=== PATIENT | male | born 1945 | race Caucasian/White ===

== ENCOUNTER 2016-04-17 08:00 | Outpatient (CLI) | payer MEDICARE, OTHER | END 2016-04-17 23:59 | disposition home or self-care (01) | DX: Z12.11 Encounter for screening for malignant neoplasm of colon (principal) ==

== ENCOUNTER 2016-04-18 13:45 | Outpatient (CLI) | payer MEDICARE, OTHER | END 2016-04-18 13:46 | disposition home or self-care (01) | DX: I48.91 Unspecified atrial fibrillation (principal) ==

== ENCOUNTER 2016-05-10 15:00 | Outpatient (CLI) | payer MEDICARE, OTHER | END 2016-05-10 15:01 | disposition home or self-care (01) | DX: I48.91 Unspecified atrial fibrillation (principal) ==

== ENCOUNTER 2016-05-17 15:19 | Outpatient (CLI) | payer MEDICARE, OTHER | END 2016-05-17 15:20 | disposition home or self-care (01) | DX: I48.91 Unspecified atrial fibrillation (principal) ==

== ENCOUNTER 2016-05-25 15:28 | Outpatient (CLI) | payer MEDICARE, OTHER | END 2016-05-25 15:29 | disposition home or self-care (01) | DX: I48.91 Unspecified atrial fibrillation (principal) ==

== ENCOUNTER 2016-06-06 13:37 | Outpatient (CLI) | payer MEDICARE, OTHER | END 2016-06-06 13:38 | disposition home or self-care (01) | DX: I48.91 Unspecified atrial fibrillation (principal) ==

== ENCOUNTER 2016-06-16 13:37 | Outpatient (CLI) | payer MEDICARE, OTHER | END 2016-06-16 13:38 | disposition home or self-care (01) | DX: I48.91 Unspecified atrial fibrillation (principal) ==

== ENCOUNTER 2016-06-27 14:19 | Outpatient (CLI) | payer MEDICARE, OTHER | END 2016-06-27 14:20 | disposition home or self-care (01) | DX: I48.91 Unspecified atrial fibrillation (principal) ==

== ENCOUNTER 2016-08-11 13:53 | Outpatient (CLI) | payer MEDICARE, OTHER | END 2016-08-11 13:54 | disposition home or self-care (01) | DX: I48.91 Unspecified atrial fibrillation (principal) ==

== ENCOUNTER 2016-09-08 13:19 | Outpatient (CLI) | payer MEDICARE, OTHER | END 2016-09-08 13:20 | disposition home or self-care (01) | LOC: LAB 13:19 | PROVIDERS: ATTEND Nurse Practitioner Family | DX: I48.91 Unspecified atrial fibrillation (principal) | CPT/HCPCS: 85610 ==

== ENCOUNTER 2016-09-25 10:22 | Outpatient (CLI) | payer MEDICARE, OTHER | END 2016-09-25 10:23 | disposition home or self-care (01) | LOC: LAB.F 10:22 | PROVIDERS: ATTEND Nurse Practitioner Family | DX: I48.91 Unspecified atrial fibrillation (principal) | CPT/HCPCS: 85610 ==

== ENCOUNTER 2016-10-02 07:54 | Outpatient (CLI) | payer MEDICARE, OTHER | END 2016-10-02 07:55 | disposition home or self-care (01) | LOC: LAB.F 07:54 | PROVIDERS: ATTEND Nurse Practitioner Family | DX: I48.91 Unspecified atrial fibrillation (principal) | CPT/HCPCS: 85610 ==

== ENCOUNTER 2016-10-11 10:06 | Outpatient (CLI) | payer MEDICARE, OTHER ==
[2016-10-11 18:00] LABS: BASOPHILS # (AUTO) 0.1 10^3/uL (0.0-0.1); BASOPHILS % (AUTO) 0.7 %; EOSINOPHILS # (AUTO) 0.3 10^3/uL (0.0-0.7); EOSINOPHILS % (AUTO) 3.8 %; HCT - HEMATOCRIT 44.5 % (42.0-52.0); HGB - HEMOGLOBIN 14.7 g/dL (14.0-18.0); LYMPHOCYTES # (AUTO) 1.8 10^3/uL (1.5-3.5); LYMPHOCYTES % (AUTO) 21.9 %; MEAN CORPUSCULAR HEMOGLOBIN 30.9 pg (27.0-31.0); MEAN CORPUSCULAR HGB CONC 32.9 g/dL (32.0-36.0); MEAN CORPUSCULAR VOLUME 93.9 fL (80.0-94.0); MEAN PLATELET VOLUME 8.3 fL (7.4-11.4); MONOCYTES % (AUTO) 12.3 %; NEUTROPHILS % (AUTO) 61.3 %; NUCLEATED RED BLOOD CELLS AUTO 0.2 /100WBC; RED BLOOD COUNT 4.74 10^6/uL (4.70-6.10); RED CELL DISTRIBUTION WIDTH 14.5 % (12.0-15.0); UNCORRECTED WHITE BLOOD COUNT 8.1 x10^3/uL; WHITE BLOOD COUNT 8.1 x10^3/uL (4.8-10.8)
== END 2016-10-11 10:07 | disposition home or self-care (01) ==
LOC: LAB.F 10:06
PROVIDERS: ATTEND Nurse Practitioner Family
DX: I48.91 Unspecified atrial fibrillation (principal); M1A.9XX0 Chronic gout, unspecified, without tophus (tophi)
CPT/HCPCS: 36415; 84550; 85025; 85610

== ENCOUNTER 2016-11-07 13:24 | Outpatient (CLI) | payer MEDICARE, OTHER | END 2016-11-07 13:25 | disposition home or self-care (01) | LOC: LAB.F 13:24 | PROVIDERS: ATTEND Nurse Practitioner Family | DX: I48.91 Unspecified atrial fibrillation (principal) | CPT/HCPCS: 85610 ==

== ENCOUNTER 2016-11-13 13:31 | Outpatient (CLI) | payer MEDICARE, OTHER ==
--- NOTE | 2016-11-14 11:39 | Ultrasound Report ---
BILATERAL LOWER EXTREMITY ARTERIAL DUPLEX: 11/13/2016 CLINICAL INDICATION: Leg pain on exertion. TECHNIQUE: Real-time sonographic vascular imaging was performed by the psychiatry physician through the lower extremities utilizing both color-flow and Doppler spectral analysis. Multiple credit and collections representative static images were saved for review. RIGHT SIDE SITE PSV WAVEFORM STEN LAMP WIRER 373 monophasic PSFA 70 monophasic MSFA 51 monophasic DSFA 60 monophasic PFA 52 monophasic POP 132 monophasic CRISTIAN --- monophasic POT ANNEALER 57 monophasic DPA 12 monophasic LEFT SIDE SITE PSV WAVEFORM STEN LAMP WIRER 28 monophasic PSFA 30 monophasic MSFA 37 monophasic DSFA 30 monophasic PFA 31 monophasic POP 34 monophasic CRISTIAN 14 monophasic POT ANNEALER 58 monophasic PER 25 monophasic DPA 12 monophasic TECHNIQUE: Real-time scanning was performed. FINDINGS: Right leg: Waveforms are diffusely monophasic. There is markedly elevated velocity in the right common femoral artery, compatible with hemodynamically significant stenosis. Additionally, there is elevated velocity in the right popliteal artery, likely representing a hemodynamically significant stenosis. Left leg: Waveforms are diffusely monophasic. There is no evidence of a focal velocity increase to suggest a hemodynamically significant stenosis. IMPRESSION: MONOPHASIC WAVEFORMS BILATERALLY, COMPATIBLE WITH IN-FLOW DISEASE. LIKELY HEMODYNAMICALLY SIGNIFICANT ARTERIAL STENOSES IN THE RIGHT COMMON FEMORAL ARTERY AND RIGHT POPLITEAL ARTERY. MTDD
--- NOTE | 2016-11-14 11:52 | Ultrasound Report ---
CAROTID DUPLEX: 11/13/2016 CLINICAL INDICATION: Stroke. COMPARISON: 10/06/2013 TECHNIQUE: Real-time sonographic vascular imaging was performed by the family resource specialist through the carotid arteries utilizing both color-flow and Doppler spectral analysis. Multiple clearance representative static images were saved for review. Vessel PSV cm/sec 2D Plaque Estimate % ICA/CCA PSV EDV cm/sec % Stenosis RCCA Prox 75 -- RCCA Dist 53 12 RECA 143 -- RT BULB 37 -- 0.69 12 ARTEMIO Prox --- -- --- -- ARTEMIO Mid 100 -- 1.8 29 ARTEMIO Dist 105 -- 1.9 28 RVA 37 RVA flow direction: Antegrade. Vessel PSV cm/sec 2D Plaque Estimate % ICA/CCA PSV EDV cm/sec % Stenosis LCCA Prox 51 -- LCCA Dist 41 10 LECA 156 -- LFT BULB 80 -- 1.9 12 LICA Prox --- -- --- -- LICA Mid 298 -- 1.26 97 LICA Dist 179 -- 4.36 35 LVA 126 LVA flow direction: Antegrade. Velocity criteria are extrapolated from diameter data as defined by the Society of Radiologists in Ultrasound Consensus Conference Radiology 2003; 229; 340-346. Degree of Stenosis % ICA PSV cm/sec Plaque Estimate % ICA/CCA RSV Ratio ICA EDV cm/sec Normal < 125 None < 2.0 < 40 <50 < 125 < 50 < 2.0 < 40 50-69 125 - 130 >/= 50 2.0 - 4.0 40 - 100 >/= 70 but less than near occlusion > 230 >/= 50 > 4.0 > 100 Near occlusion High, low, or undetectable Visible lumen Variable Variable Total occlusion Undetectable No detectable lumen Not applicable Not applicable FINDINGS RIGHT: There is densely calcified plaquing in the proximal right internal carotid artery, obscuring the lumen. There is no evidence of a focal hemodynamically significant stenosis in the visualized portions of the right internal carotid artery. LEFT: There is densely calcified plaquing in the proximal left internal carotid artery, obscuring the lumen. There is marked velocity and ratio elevation in the [id number] portion, compatible with a hemodynamically significant stenosis, greater than 70%, increased from previous. IMPRESSION: LIKELY HEMODYNAMICALLY SIGNIFICANT STENOSIS OF THE LEFT INTERNAL CAROTID ARTERY. DENSELY CALCIFIED PLAQUING BILATERALLY, OBSCURING PORTIONS OF THE LUMEN FROM VISUALIZATION. FURTHER EVALUATION WITH MRA OR CTA OF THE NECK WOULD BE RECOMMENDED FOR FURTHER EVALUATION. MTDD
== END 2016-11-13 13:32 | disposition home or self-care (01) ==
LOC: DI 13:31
PROVIDERS: ATTEND Specialist
DX: I21.3 ST elevation (STEMI) myocardial infarction of unspecified site (principal); I51.7 Cardiomegaly; I63.9 Cerebral infarction, unspecified; R53.83 Other fatigue; M79.606 Pain in leg, unspecified; I10 Essential (primary) hypertension; Z95.5 Presence of coronary angioplasty implant and graft
CPT/HCPCS: 93306; 93880; 93925

== ENCOUNTER 2016-11-20 12:40 | Outpatient (CLI) | payer MEDICARE, OTHER | END 2016-11-20 12:41 | disposition home or self-care (01) | LOC: LAB.F 12:40 | PROVIDERS: ATTEND Nurse Practitioner Family | DX: I48.91 Unspecified atrial fibrillation (principal) | CPT/HCPCS: 85610 ==

== ENCOUNTER 2016-11-30 10:49 | Outpatient (CLI) | payer MEDICARE, OTHER ==
[2016-11-30] MEDS ORDERED: DIPYRIDAMOLE 50 MG/10 ML VIAL IVP ONE (13:15)
--- NOTE | 2016-11-30 15:05 | CARDIAC PROCEDURE NOTE ---
DATE OF SERVICE: 11/30/2016 00:00:00 PRIMARY CARE PHYSICIAN: LEONA Palomares REHAB MANAGER: Uzma Sher MD PROCEDURE: Pharmacologic stress test. PROCEDURE SYMPTOMS: Extreme fatigue. CARDIAC RISK FACTORS: Include known CAD and IN, also age, hypertension and hyperlipidemia. PREVIOUS CARDIAC PROCEDURES: Coronary stenting with angiogram and prior MPS. Metoprolol held prior to test. CLINICAL HISTORY: A 70-year-old male with known coronary artery disease. INITIAL RESTING VITAL SIGNS: Blood pressure 142/62, heart rate 78, height 71 inches, weight 169 pound s, BMI 25.7. PROCEDURE AND FINDINGS: The patient's identity and date verified. Consent signed. Safety stop. Pharmacologic stress testing was performed with Persantine at 0.75 mg/kg or 42 mg over 4 minutes. Max imal blood pressure was 164/0 with a heart rate of 109 beats per minute. The blood pressure decreased to 104/56 from effects of the infusion. He had mild symptoms of headache. The resting ECG demonstrat ed atrial fibrillation rhythm. Maximum ST segment depression was less than 0.5 mm and upsloping. Ther e was no ectopy. FINAL IMPRESSION 1. Negative stress electrocardiogram for ischemia by electrocardiographic criteria. 2. Negative stress test clinically for angina. 3. Tolerated test well. 4. Await results of myocardial perfusion scan. JOB #: [id number] EXT JOB #:[id number]
[2016-11-30 16:47] VITALS: BP 142/62
--- NOTE | 2016-11-30 17:55 | Nuclear Medicine Report ---
EXAM: MYOCARDIAL PERFUSION STRESS AND REST EXAM DATE: 11/30/2016 04:52 PM. CLINICAL HISTORY: Coronary artery disease, atrial fibrillation. Evaluate for ischemia. COMPARISON: X-ray 03/02/2010. TECHNIQUE: Patient given 10.8 mCi technetium 99m sestamibi IV for the rest portion of the exam. Non-g ated cardiac SPECT scintigraphy performed with multiplanar reformats. Patient attempted a treadmill protocol, but did not achieve target heart rate. Patient given 42 mg Persantine IV for pharmacologic stress. After this, patient given 38.4 mCi techne tium 99m sestamibi IV. Cardiac gated SPECT scintigraphy performed with multiplanar reformats, wall mo tion analysis, and left ventricular ejection fraction estimation. FINDINGS: There is uniform perfusion activity in the left ventricular myocardium on stress and rest. No fixed o r reversible stress-related perfusion defects. Wall motion is uniform. Left ventricular ejection fraction estimated at 54%. IMPRESSION: 1. No scintigraphic evidence of inducible ischemia or infarct. 2. Left ventricular ejection fraction estimated at 54%. [facility] Referring Provider Line: [phone] SITE ID: [id number]
== END 2016-11-30 10:50 | disposition home or self-care (01) ==
LOC: DI 10:49
PROVIDERS: ATTEND Specialist
DX: I25.10 Atherosclerotic heart disease of native coronary artery without angina pectoris (principal); I48.91 Unspecified atrial fibrillation; I25.2 Old myocardial infarction; I10 Essential (primary) hypertension; E78.5 Hyperlipidemia, unspecified; R53.83 Other fatigue
CPT/HCPCS: 78452; 93017; A9500; J1245

== ENCOUNTER 2017-01-02 14:57 | Outpatient (CLI) | payer MEDICARE, OTHER | END 2017-01-02 14:58 | disposition home or self-care (01) | LOC: LAB.F 14:57 | PROVIDERS: ATTEND Nurse Practitioner Family | DX: I48.91 Unspecified atrial fibrillation (principal) | CPT/HCPCS: 85610 ==

== ENCOUNTER 2017-01-18 15:45 | Outpatient (CLI) | payer MEDICARE, OTHER | END 2017-01-18 15:46 | disposition home or self-care (01) | LOC: LAB.F 15:45 | PROVIDERS: ATTEND Nurse Practitioner Family | DX: I48.91 Unspecified atrial fibrillation (principal) | CPT/HCPCS: 85610 ==

== ENCOUNTER 2017-01-31 12:39 | Outpatient (CLI) | payer MEDICARE, OTHER | END 2017-01-31 12:40 | disposition home or self-care (01) | LOC: LAB.F 12:39 | PROVIDERS: ATTEND Nurse Practitioner Family | DX: I48.91 Unspecified atrial fibrillation (principal) | CPT/HCPCS: 85610 ==

== ENCOUNTER 2017-02-21 10:02 | Outpatient (CLI) | payer MEDICARE, OTHER | END 2017-02-21 10:03 | disposition home or self-care (01) | LOC: LAB.F 10:02 | PROVIDERS: ATTEND Nurse Practitioner Family | DX: I48.91 Unspecified atrial fibrillation (principal) | CPT/HCPCS: 85610 ==

== ENCOUNTER 2017-03-22 14:55 | Outpatient (CLI) | payer MEDICARE, OTHER | END 2017-03-22 14:56 | disposition home or self-care (01) | LOC: LAB.F 14:55 | PROVIDERS: ATTEND Nurse Practitioner Family | DX: I48.91 Unspecified atrial fibrillation (principal) | CPT/HCPCS: 85610 ==

== ENCOUNTER 2017-04-03 13:36 | Outpatient (CLI) | payer MEDICARE, OTHER ==
[2017-04-03 19:03] LABS: BASOPHILS % (AUTO) 0.4 %; EOSINOPHILS # (AUTO) 0.1 10^3/uL (0.0-0.7); EOSINOPHILS % (AUTO) 1.7 %; HCT - HEMATOCRIT 43.5 % (42.0-52.0); HGB - HEMOGLOBIN 14.2 g/dL (14.0-18.0); LYMPHOCYTES # (AUTO) 2.1 10^3/uL (1.5-3.5); LYMPHOCYTES % (AUTO) 24.2 %; MEAN CORPUSCULAR HEMOGLOBIN 30.6 pg (27.0-31.0); MEAN CORPUSCULAR HGB CONC 32.7 g/dL (32.0-36.0); MEAN CORPUSCULAR VOLUME 93.6 fL (80.0-94.0); MEAN PLATELET VOLUME 8.4 fL (7.4-11.4); MONOCYTES # (AUTO) 0.8 10^3/uL (0.0-1.0); MONOCYTES % (AUTO) 8.9 %; NEUTROPHILS # (AUTO) 5.7 10^3/uL (1.5-6.6); NEUTROPHILS % (AUTO) 64.8 %; RED BLOOD COUNT 4.65 10^6/uL (4.70-6.10); UNCORRECTED WHITE BLOOD COUNT 8.9 x10^3/uL; WHITE BLOOD COUNT 8.9 x10^3/uL (4.8-10.8)
[2017-04-03 19:14] LABS: ALBUMIN/GLOBULIN RATIO 1.3 (1.0-2.2); BILIRUBIN,TOTAL 1.3 mg/dL (0.2-1.0); BUN - BLOOD UREA NITROGEN 21 mg/dL (6-20); CALCIUM 9.3 mg/dL (8.5-10.3); CARBON DIOXIDE - CO2 26 mmol/L (21-32); CHLORIDE 100 mmol/L (101-111); CHOL/HDL RATIO 3.9 (<5.0); CHOLESTEROL 213 mg/dL; GFR - MDRD 73 (>89); GLUCOSE 86 mg/dL (70-100); HDL CHOLESTEROL 55 mg/dL; LDL/HDL RATIO 2.6 (<3.6); POTASSIUM 4.3 mmol/L (3.5-5.0); SODIUM 133 mmol/L (135-145); TOTAL PROTEIN 7.4 g/dL (6.7-8.2); TRIGLYCERIDES 64 mg/dL; URIC ACID 9.6 mg/dL (2.6-7.2); VLDL CHOLESTEROL 13 mg/dL
== END 2017-04-03 13:37 | disposition home or self-care (01) ==
LOC: LAB.F 13:36
PROVIDERS: ATTEND Nurse Practitioner Family
DX: I10 Essential (primary) hypertension (principal); E78.5 Hyperlipidemia, unspecified; M1A.9XX0 Chronic gout, unspecified, without tophus (tophi)
CPT/HCPCS: 36415; 80053; 80061; 84443; 84550; 85025

== ENCOUNTER 2017-05-08 14:29 | Outpatient (CLI) | payer MEDICARE, OTHER | END 2017-05-08 14:30 | disposition home or self-care (01) | LOC: LAB.F 14:29 | PROVIDERS: ATTEND Nurse Practitioner Family | DX: I48.91 Unspecified atrial fibrillation (principal) | CPT/HCPCS: 85610 ==

== ENCOUNTER 2017-05-14 08:00 | Outpatient (CLI) | payer MEDICARE, OTHER | END 2017-05-14 23:59 | disposition home or self-care (01) | LOC: LAB.R 08:00 | PROVIDERS: ATTEND Nurse Practitioner Family | DX: I48.91 Unspecified atrial fibrillation (principal) | CPT/HCPCS: 85610 ==

== ENCOUNTER 2017-05-23 14:40 | Outpatient (CLI) | payer MEDICARE, OTHER ==
--- NOTE | 2017-05-24 09:17 | XRAY Report ---
TWO VIEW CHEST: 05/23/2017 CLINICAL INDICATION: Cough. COMPARISON: 08/03/2014. FINDINGS: Frontal and lateral views of the chest demonstrate a normal cardiac silhouette. The lungs are clear. No effusion or pneumothorax is present. IMPRESSION: NORMAL CHEST. TD: 05/24/2017 09:14
== END 2017-05-23 14:41 | disposition home or self-care (01) ==
LOC: DI.S 14:40
PROVIDERS: ATTEND Nurse Practitioner Family
DX: R05 Cough (principal)
CPT/HCPCS: 71046

== ENCOUNTER 2017-05-25 13:30 | Outpatient (CLI) | payer MEDICARE, OTHER | END 2017-05-25 13:31 | disposition home or self-care (01) | LOC: LAB.F 13:30 | PROVIDERS: ATTEND Nurse Practitioner Family | DX: I48.91 Unspecified atrial fibrillation (principal) | CPT/HCPCS: 85610 ==

== ENCOUNTER 2017-05-28 09:41 | Outpatient (CLI) | payer MEDICARE, OTHER ==
[2017-05-28 18:27] LABS: BASOPHILS % (AUTO) 0.1 %; HGB - HEMOGLOBIN 14.7 g/dL (14.0-18.0); LYMPHOCYTES # (AUTO) 1.4 10^3/uL (1.5-3.5); LYMPHOCYTES % (AUTO) 25.6 %; MEAN CORPUSCULAR HEMOGLOBIN 29.9 pg (27.0-31.0); MEAN CORPUSCULAR HGB CONC 32.2 g/dL (32.0-36.0); MEAN CORPUSCULAR VOLUME 92.9 fL (80.0-94.0); MEAN PLATELET VOLUME 8.5 fL (7.4-11.4); MONOCYTES # (AUTO) 0.8 10^3/uL (0.0-1.0); MONOCYTES % (AUTO) 15.2 %; NEUTROPHILS # (AUTO) 3.3 10^3/uL (1.5-6.6); NEUTROPHILS % (AUTO) 59.1 %; PLT - PLATELET COUNT 318 10^3/uL (130-450); RED BLOOD COUNT 4.91 10^6/uL (4.70-6.10); WHITE BLOOD COUNT 5.5 x10^3/uL (4.8-10.8)
[2017-05-28 18:52] LABS: ALBUMIN 4.1 g/dL (3.2-5.5); ALBUMIN/GLOBULIN RATIO 1.2 (1.0-2.2); ALKALINE PHOSPHATASE 67 IU/L (42-121); ALT ALANINE AMINOTRANSFERASE 20 IU/L (10-60); AST ASPARTATE AMINOTRANSFERASE 26 IU/L (10-42); BILIRUBIN,TOTAL 1.4 mg/dL (0.2-1.0); BUN - BLOOD UREA NITROGEN 24 mg/dL (6-20); CALCIUM 9.4 mg/dL (8.5-10.3); CARBON DIOXIDE - CO2 27 mmol/L (21-32); CHLORIDE 101 mmol/L (101-111); CHOL/HDL RATIO 4.4 (<5.0); CHOLESTEROL 215 mg/dL; GFR - MDRD 73 (>89); GLUCOSE 89 mg/dL (70-100); HDL CHOLESTEROL 49 mg/dL; LDL CHOLESTEROL,CALCULATED 149 mg/dL; SODIUM 137 mmol/L (135-145); TOTAL PROTEIN 7.5 g/dL (6.7-8.2); VLDL CHOLESTEROL 17 mg/dL
== END 2017-05-28 09:42 | disposition home or self-care (01) ==
LOC: LAB.F 09:41
PROVIDERS: ATTEND Nurse Practitioner Family
DX: I10 Essential (primary) hypertension (principal); I25.10 Atherosclerotic heart disease of native coronary artery without angina pectoris; E78.5 Hyperlipidemia, unspecified; I48.91 Unspecified atrial fibrillation
CPT/HCPCS: 36415; 80053; 80061; 83721; 84443; 85025; 85610

== ENCOUNTER 2017-06-04 14:58 | Outpatient (CLI) | payer MEDICARE, OTHER ==
--- NOTE | 2017-06-05 11:14 | Ultrasound Report ---
EXAM: CAROTID DOPPLER ULTRASOUND EXAM DATE: 06/04/2017 04:18 PM. CLINICAL HISTORY: Left carotid bruit. COMPARISON: Carotid ultrasound 11/13/2016. TECHNIQUE: Real-time sonographic vascular imaging was performed by the animation artist through the [employer] arterial system with a linear transducer utilizing color-flow, Doppler flow and spectral analysis. Multiple communications representative static images were saved for review. FINDINGS: Grayscale evaluation of right carotid bulb is markedly limited due to dense shadowing plaqu e. Right carotid bulb cannot be assessed on grayscale images. Tortuous right ICA. Dense calcified plaque within distal left carotid bulb and proximal to mid ICA. Grayscale and color D oppler evaluation of proximal left ICA is limited by calcified plaque. Peak systolic velocity within the proximal to mid left ICA is 339 cm/s with end-diastolic velocity 105 cm/s. Right: RCCA Prox: PSV 76 cm/sec. RCCA Dist: PSV 61 cm/sec, EDV 13 cm/sec. RECA: PSV 201 cm/sec. R Bulb: No flow seen; calcified plaque. ARTEMIO Prox: PSV 135 cm/sec, EDV 43 cm/sec, ICA/CCA ratio 2.21. ARTEMIO Mid: PSV 81 cm/sec, EDV 20 cm/sec, ICA/CCA ratio 1.33. ARTEMIO Dist: PSV 56 cm/sec, EDV 21 cm/sec, ICA/CCA ratio 0.92. RVA: PSV 64 cm/sec. RVA flow direction: Antegrade. Left: LCCA Prox: PSV 92 cm/sec. LCCA Dist: PSV 65 cm/sec, EDV 12 cm/sec. LECA: PSV 162 cm/sec. L Bulb: PSV 92 cm/sec, EDV 30 cm/sec, ICA/CCA ratio 1.42. LICA Prox: PSV 339 cm/sec, EDV 105 cm/sec, ICA/CCA ratio 5.22. LICA Mid: PSV 99 cm/sec, EDV 32 cm/sec, ICA/CCA ratio 1.52. LICA Dist: PSV 39 cm/sec, EDV 15 cm/sec, ICA/CCA ratio 0.60. LVA: PSV 61 cm/sec. LVA flow direction: Antegrade. Other: None. IMPRESSION: 1. Patient likely has a greater than 70% hemodynamically significant proximal left internal carotid a rterial stenosis. Origin of left ICA is difficult to assess due to shadowing plaque. In addition, the right carotid bulb was completely obscured by densely calcified plaque with distal shadowing. Recomm end further evaluation with CTA or MRA. Vascular surgery consult is also suggested. Validated velocity measurements with angiographic measurements and velocity criteria are extrapolated from diameter data as defined by the Society of Radiologists in Ultrasound Consensus Conference Radi ology 2003; 229;340-346. [facility] Referring Provider Line: [phone] SITE ID: [id number]
== END 2017-06-04 14:59 | disposition home or self-care (01) ==
LOC: DI 14:58
PROVIDERS: ATTEND Nurse Practitioner Family
DX: I65.23 Occlusion and stenosis of bilateral carotid arteries (principal)
CPT/HCPCS: 93880

== ENCOUNTER 2017-06-07 11:54 | Outpatient (CLI) | payer MEDICARE, OTHER ==
[2017-06-07] MEDS ORDERED: IOPAMIDOL-300 100 ML VIAL ONE (12:06)
[2017-06-07] MEDS ORDERED: IOPAMIDOL-300 100 ML VIAL IVP ONE (12:21)
--- NOTE | 2017-06-08 10:31 | CT Report ---
EXAM: CT ANGIOGRAM NECK EXAM DATE: 06/07/2017 12:22 PM. CLINICAL HISTORY: Occlusion and stenosis of right carotid artery. COMPARISON: Carotid Doppler ultrasound 06/04/2017. TECHNIQUE: Routine axial helical imaging was performed from the skull base through the aortic arch. R econstructions: Routine multiplanar 3D MIP reconstructions. IV Contrast: 80 cc Isovue 300. Evaluation of arterial stenosis is based on a NASCET method of measurement. In accordance with CT protocol optimization, one or more of the following dose reduction techniques w ere utilized for this exam: automated exposure control, adjustment of mA and/or KV based on patient s ize, or use of iterative reconstructive technique. FINDINGS: Mild tortuosity and calcification of the partially visualized aortic arch is noted. Normal three-vessel branching is seen. Moderate intimal thickening and calcification is seen involvin g great vessels off the arch and bifurcation points. Right Carotid: The CCA is patent. Marked circumferential atherosclerotic calcification is seen at the CCA bifurcation and proximal ICA. The underlying lumen of the ICA is likely decreased to approximate ly 1 mm. This gives severe, approximately 80%, stenosis. Mild atherosclerotic intimal thickening is s een in the distal cervical ICA without significant stenosis. No dissection. Intimal thickening is seen at the origin of the ECA. Moderate, 50%, stenosis is seen at the origin of the ECA. The ECA is patent. Left Carotid: The CCA is patent. Marked atherosclerotic calcification is seen at the CCA bifurcation and proximal ICA. At the level of the carotid bulb the lumen is decreased to approximately 1 mm, givi ng severe, 80%, stenosis. Additionally, in the immediate postbulbar ICA intimal thickening is noted a long with calcification with continuation of severe, greater than 70%, stenosis. Mild atherosclerotic intimal thickening and calcification is seen in the distal cervical ICA without significant stenosis . The ECA is patent and unremarkable. Vertebrals: Right vertebral artery: Atherosclerotic intimal thickening and calcification is seen at the origin an d proximal V1 segment. Severe, greater than 70%, stenosis is present. The V2 and V3 segments are garcia nt. Left vertebral artery: Lobular atherosclerotic calcification is seen at the origin. There likely is s evere critical stenosis rather than occlusion as there is opacification of the vessel immediately adj acent to the calcification. Moderate intimal thickening and calcification is seen in the mid and dist al V1 segment. Severe, greater than 70%, stenosis is seen in this location. Intimal thickening and ca lcification extends into the proximal V2 segment with moderate, 50%, stenosis. Atherosclerotic intima l thickening and calcification is seen in the distal V2 segment at the C3 level with moderate, 50%, s tenosis. Intracranial Circulation: Marked vascular calcification and tortuosity is seen involving intracranial ICA. This limits evaluati on for stenosis. There likely is multilevel mild to moderate stenosis. The left ICA primarily terminates as the MCA. The left A1 segment is hypoplastic with stenosis at the origin. The left P-comm is not identified. Left HILDA is primarily supplied from the left A1 segment t hrough a patent A-comm. Posterior circulation: The basilar artery and bifurcation is patent and unremarkable. Right vertebral artery: Mild vascular calcification is seen at the junction of the V3 and V4 segment. Moderate, 60%, stenosis is seen in the proximal V4 segment. Vascular calcifications are seen in the mid V4 segment with moderate, 50%, stenosis. The distal V4 segment is patent. Left vertebral artery: Intimal thickening and calcification is seen at the junction of the V3 and V4 segment and in the mid V4 segment. No significant stenosis. Other: The bones, soft tissues, and lung apices are within normal limits. IMPRESSION: 1. Right carotid circulation: Marked calcification is seen at the CCA bifurcation. Severe, 80%, steno sis is seen in the proximal ICA. 2. Left carotid circulation: Marked calcification is seen at the CCA bifurcation. Severe, 80%, stenos is is seen in the proximal ICA. Distal to this, continuation of severe, greater than 70%, stenosis is seen in the postbulbar ICA. 3. Right vertebral artery: Severe stenosis is seen at the origin and proximal V1 segment. Moderate st enosis is seen in the proximal and mid V4 segment. 4. Left vertebral artery: Critical stenosis with large atherosclerotic plaque is seen at the origin. Severe stenosis is seen throughout the mid and distal V1 and proximal V2 segment. Moderate stenosis i s noted in the distal V2 segment. [facility] Referring Provider Line: [phone] SITE ID: [id number]
== END 2017-06-07 11:55 | disposition home or self-care (01) ==
LOC: DI 11:54
PROVIDERS: ATTEND Nurse Practitioner Family
DX: I65.23 Occlusion and stenosis of bilateral carotid arteries (principal); I65.03 Occlusion and stenosis of bilateral vertebral arteries
CPT/HCPCS: 70498; Q9967

== ENCOUNTER 2017-06-08 14:11 | Outpatient (CLI) | payer MEDICARE, OTHER | END 2017-06-08 14:12 | disposition home or self-care (01) | LOC: LAB.F 14:11 | PROVIDERS: ATTEND Nurse Practitioner Family | DX: I48.91 Unspecified atrial fibrillation (principal) | CPT/HCPCS: 85610 ==

== ENCOUNTER 2017-06-15 13:52 | Outpatient (CLI) | payer MEDICARE, OTHER | END 2017-06-15 13:53 | disposition home or self-care (01) | LOC: LAB.F 13:52 | PROVIDERS: ATTEND Nurse Practitioner Family | DX: I48.91 Unspecified atrial fibrillation (principal) | CPT/HCPCS: 85610 ==

== ENCOUNTER 2017-07-04 14:19 | Outpatient (CLI) | payer MEDICARE, OTHER | END 2017-07-04 14:20 | disposition home or self-care (01) | LOC: LAB.F 14:19 | PROVIDERS: ATTEND Nurse Practitioner Family | DX: I48.91 Unspecified atrial fibrillation (principal) | CPT/HCPCS: 85610 ==

== ENCOUNTER 2017-07-12 14:57 | Outpatient (CLI) | payer MEDICARE, OTHER | END 2017-07-12 14:58 | disposition home or self-care (01) | LOC: LAB.F 14:57 | PROVIDERS: ATTEND Nurse Practitioner Family | DX: I48.91 Unspecified atrial fibrillation (principal) | CPT/HCPCS: 85610 ==

== ENCOUNTER 2017-07-19 14:47 | Outpatient (CLI) | payer MEDICARE, OTHER | END 2017-07-19 14:48 | disposition home or self-care (01) | LOC: LAB.F 14:47 | PROVIDERS: ATTEND Nurse Practitioner Family | DX: I48.91 Unspecified atrial fibrillation (principal) | CPT/HCPCS: 85610 ==

== ENCOUNTER 2017-07-31 14:10 | Outpatient (CLI) | payer MEDICARE, OTHER | END 2017-07-31 14:11 | disposition home or self-care (01) | LOC: LAB.F 14:10 | PROVIDERS: ATTEND Nurse Practitioner Family | DX: I48.91 Unspecified atrial fibrillation (principal) | CPT/HCPCS: 85610 ==

== ENCOUNTER 2017-08-14 15:09 | Outpatient (CLI) | payer MEDICARE, OTHER | END 2017-08-14 15:10 | disposition home or self-care (01) | LOC: LAB.F 15:09 | PROVIDERS: ATTEND Nurse Practitioner Family | DX: I48.91 Unspecified atrial fibrillation (principal) | CPT/HCPCS: 85610 ==

== ENCOUNTER 2017-08-20 13:28 | Outpatient (CLI) | payer MEDICARE, OTHER | END 2017-08-20 13:29 | disposition home or self-care (01) | LOC: LAB.F 13:28 | PROVIDERS: ATTEND Nurse Practitioner Family | DX: I48.91 Unspecified atrial fibrillation (principal) | CPT/HCPCS: 85610 ==

== ENCOUNTER 2017-09-06 14:26 | Outpatient (CLI) | payer MEDICARE, OTHER | END 2017-09-06 14:27 | disposition home or self-care (01) | LOC: LAB.F 14:26 | PROVIDERS: ATTEND Nurse Practitioner Family | DX: I48.91 Unspecified atrial fibrillation (principal) | CPT/HCPCS: 85610 ==

== ENCOUNTER 2017-09-25 14:40 | Outpatient (CLI) | payer MEDICARE, OTHER | END 2017-09-25 14:41 | disposition home or self-care (01) | LOC: LAB.F 14:40 | PROVIDERS: ATTEND Nurse Practitioner Family | DX: I48.91 Unspecified atrial fibrillation (principal) | CPT/HCPCS: 85610 ==

== ENCOUNTER 2017-10-12 09:24 | Outpatient (CLI) | payer MEDICARE, OTHER | END 2017-10-12 09:25 | disposition home or self-care (01) | LOC: LAB.F 09:24 | PROVIDERS: ATTEND Nurse Practitioner Family | DX: I48.91 Unspecified atrial fibrillation (principal) | CPT/HCPCS: 85610 ==

== ENCOUNTER 2017-11-05 15:18 | Outpatient (CLI) | payer MEDICARE, OTHER | END 2017-11-05 15:19 | disposition home or self-care (01) | LOC: LAB.F 15:18 | PROVIDERS: ATTEND Nurse Practitioner Family | DX: I48.91 Unspecified atrial fibrillation (principal) | CPT/HCPCS: 85610 ==

== ENCOUNTER 2017-11-12 14:59 | Outpatient (CLI) | payer MEDICARE, OTHER | END 2017-11-12 15:00 | disposition home or self-care (01) | LOC: LAB.F 14:59 | PROVIDERS: ATTEND Nurse Practitioner Family | DX: I48.91 Unspecified atrial fibrillation (principal) | CPT/HCPCS: 85610 ==

== ENCOUNTER 2017-11-22 09:38 | Outpatient (CLI) | payer MEDICARE, OTHER ==
--- NOTE | 2017-11-22 13:19 | XRAY Report ---
Procedure Date: 11/22/2017 Accession Number: [id number] / [id number] Procedure: XRS - Ankle 3 View RT CPT Code: FULL RESULT: EXAM: RIGHT ANKLE RADIOGRAPHY EXAM DATE: 11/22/2017 09:55 AM. CLINICAL HISTORY: Osteoarthritis, ankle, right. COMPARISON: None. TECHNIQUE: 3 views. FINDINGS: ongoing remodeling of a healed distal tibial diaphyseal fracture with question of partial ossification of the tibiofibular syndesmosis. Vascular calcifications are noted. There are associated degenerative changes of the ankle joint. IMPRESSION: Healed distal tibial fracture with associated posttraumatic degenerative changes. [facility]
== END 2017-11-22 09:39 | disposition home or self-care (01) ==
LOC: DI.S 09:38
PROVIDERS: ATTEND Family Medicine
DX: M19.171 Post-traumatic osteoarthritis, right ankle and foot (principal)

== ENCOUNTER 2017-12-11 12:55 | Outpatient (CLI) | payer MEDICARE, OTHER | END 2017-12-11 12:56 | disposition home or self-care (01) | LOC: LAB.F 12:55 | PROVIDERS: ATTEND Nurse Practitioner Family | DX: I48.91 Unspecified atrial fibrillation (principal) | CPT/HCPCS: 85610 ==

== ENCOUNTER 2017-12-19 12:41 | Outpatient (CLI) | payer MEDICARE, OTHER | END 2017-12-19 12:42 | disposition home or self-care (01) | LOC: LAB.F 12:41 | PROVIDERS: ATTEND Nurse Practitioner Family | DX: I48.91 Unspecified atrial fibrillation (principal) | CPT/HCPCS: 85610 ==

== ENCOUNTER 2018-01-16 10:53 | Outpatient (CLI) | payer MEDICARE, OTHER | END 2018-01-16 10:54 | disposition home or self-care (01) | LOC: LAB.F 10:53 | PROVIDERS: ATTEND Nurse Practitioner Family | DX: I48.91 Unspecified atrial fibrillation (principal) | CPT/HCPCS: 85610 ==

== ENCOUNTER 2018-02-14 10:15 | Outpatient (CLI) | payer MEDICARE, OTHER ==
[2018-02-14 11:13] LABS: INR 1.2 (0.8-1.2); PT - PROTHROMBIN TIME 13.9 secs (9.9-12.6)
== END 2018-02-14 10:16 | disposition home or self-care (01) ==
LOC: LAB 10:15
PROVIDERS: ATTEND Nurse Practitioner Family
DX: I48.91 Unspecified atrial fibrillation (principal)
CPT/HCPCS: 36415; 85610

== ENCOUNTER 2018-02-21 11:43 | Outpatient (CLI) | payer MEDICARE, OTHER ==
[2018-02-21 12:23] LABS: INR 1.7 (0.8-1.2); PT - PROTHROMBIN TIME 18.9 secs (9.9-12.6)
== END 2018-02-21 11:44 | disposition home or self-care (01) ==
LOC: LAB 11:43
PROVIDERS: ATTEND Nurse Practitioner Family
DX: I48.91 Unspecified atrial fibrillation (principal)
CPT/HCPCS: 36415; 85610

== ENCOUNTER 2018-03-05 11:25 | Outpatient (CLI) | payer MEDICARE, OTHER | END 2018-03-05 11:26 | disposition home or self-care (01) | LOC: LAB 11:25 | PROVIDERS: ATTEND Nurse Practitioner Family | DX: I48.91 Unspecified atrial fibrillation (principal) | CPT/HCPCS: 85610 ==

== ENCOUNTER 2018-03-20 14:41 | Outpatient (CLI) | payer MEDICARE, OTHER | END 2018-03-20 14:42 | disposition home or self-care (01) | LOC: LAB 14:41 | PROVIDERS: ATTEND Nurse Practitioner Family | DX: I48.91 Unspecified atrial fibrillation (principal) | CPT/HCPCS: 85610 ==

== ENCOUNTER 2018-03-28 10:49 | Outpatient (CLI) | payer MEDICARE, OTHER | END 2018-03-28 10:50 | disposition home or self-care (01) | LOC: LAB 10:49 | PROVIDERS: ATTEND Nurse Practitioner Family | DX: I48.91 Unspecified atrial fibrillation (principal) | CPT/HCPCS: 85610 ==

== ENCOUNTER 2018-04-12 13:29 | Outpatient (CLI) | payer MEDICARE, OTHER | END 2018-04-12 13:30 | disposition home or self-care (01) | LOC: LAB 13:29 | PROVIDERS: ATTEND Nurse Practitioner Family | DX: I48.91 Unspecified atrial fibrillation (principal) | CPT/HCPCS: 85610 ==

== ENCOUNTER 2018-05-16 09:11 | Outpatient (CLI) | payer MEDICARE, OTHER | END 2018-05-16 09:12 | disposition home or self-care (01) | LOC: LAB 09:11 | PROVIDERS: ATTEND Nurse Practitioner Family | DX: I48.91 Unspecified atrial fibrillation (principal) | CPT/HCPCS: 85610 ==

== ENCOUNTER 2018-05-23 15:28 | Outpatient (CLI) | payer MEDICARE, OTHER | END 2018-05-23 15:29 | disposition home or self-care (01) | LOC: LAB 15:28 | PROVIDERS: ATTEND Nurse Practitioner Family | DX: I48.91 Unspecified atrial fibrillation (principal) | CPT/HCPCS: 85610 ==

== ENCOUNTER 2018-05-31 16:01 | Outpatient (CLI) | payer MEDICARE, OTHER | END 2018-05-31 16:02 | disposition home or self-care (01) | LOC: LAB 16:01 | PROVIDERS: ATTEND Nurse Practitioner Family | DX: I48.91 Unspecified atrial fibrillation (principal) | CPT/HCPCS: 85610 ==

== ENCOUNTER 2018-06-12 10:53 | Outpatient (CLI) | payer MEDICARE, OTHER | END 2018-06-12 10:54 | disposition home or self-care (01) | LOC: LAB 10:53 | PROVIDERS: ATTEND Nurse Practitioner Family | DX: I48.91 Unspecified atrial fibrillation (principal) | CPT/HCPCS: 85610 ==

== ENCOUNTER 2018-06-22 15:59 | Outpatient (CLI) | payer MEDICARE, OTHER | END 2018-06-22 16:00 | disposition home or self-care (01) | LOC: LAB 15:59 | PROVIDERS: ATTEND Nurse Practitioner Family | DX: I48.91 Unspecified atrial fibrillation (principal) | CPT/HCPCS: 85610 ==

== ENCOUNTER 2018-06-28 15:42 | Outpatient (CLI) | payer MEDICARE, OTHER ==
--- NOTE | 2018-06-30 19:45 | XRAY Report ---
Reason: CELLULITIS Procedure Date: 06/28/2018 Accession Number: [id number] / [id number] Procedure: XR - Toe(s) RT CPT Code: FULL RESULT: EXAM: RIGHT FOOT AND TOES RADIOGRAPHY. EXAM DATE: 06/28/2018 04:41 PM. CLINICAL HISTORY: Cellulitis. Right foot infection. Swelling. COMPARISON: TOE(S) RT 06/28/2018 4:17 PM. TECHNIQUE: 3 views each of the foot and toes. FINDINGS: Bones: Bones are osteopenic without gross periostitis or erosive changes. No fractures or bone lesions. Joints: Moderate to severe first metatarsophalangeal joint degenerative changes.Mild diffuse degenerative changes elsewhere throughout the foot. Moderate ankle degenerative changes are throughout the foot. No subluxations. Soft Tissues: Peripheral vascular disease. No foreign body or tracking soft tissue gas seen. IMPRESSION: 1. No definite plain film osteomyelitis seen in this osteopenic patient in the right foot/toes. 2. Moderate to severe first MTP joint degenerative changes. 3. No foreign body or tracking soft tissue gas seen. [facility]
--- NOTE | 2018-06-30 19:45 | XRAY Report ---
Reason: CELLULITIS Procedure Date: 06/28/2018 Accession Number: [id number] / [id number] Procedure: XR - Foot 3 View RT CPT Code: FULL RESULT: EXAM: RIGHT FOOT AND TOES RADIOGRAPHY. EXAM DATE: 06/28/2018 04:41 PM. CLINICAL HISTORY: Cellulitis. Right foot infection. Swelling. COMPARISON: TOE(S) RT 06/28/2018 4:17 PM. TECHNIQUE: 3 views each of the foot and toes. FINDINGS: Bones: Bones are osteopenic without gross periostitis or erosive changes. No fractures or bone lesions. Joints: Moderate to severe first metatarsophalangeal joint degenerative changes.Mild diffuse degenerative changes elsewhere throughout the foot. Moderate ankle degenerative changes are throughout the foot. No subluxations. Soft Tissues: Peripheral vascular disease. No foreign body or tracking soft tissue gas seen. IMPRESSION: 1. No definite plain film osteomyelitis seen in this osteopenic patient in the right foot/toes. 2. Moderate to severe first MTP joint degenerative changes. 3. No foreign body or tracking soft tissue gas seen. [facility]
== END 2018-06-28 15:43 | disposition home or self-care (01) ==
LOC: DI 15:42
PROVIDERS: ATTEND Nurse Practitioner Family
DX: L03.115 Cellulitis of right lower limb (principal); M19.071 Primary osteoarthritis, right ankle and foot
CPT/HCPCS: 73660

== ENCOUNTER 2018-07-02 13:25 | Outpatient (CLI) | payer MEDICARE, OTHER | END 2018-07-02 13:26 | disposition home or self-care (01) | LOC: LAB 13:25 | PROVIDERS: ATTEND Nurse Practitioner Family | DX: I48.91 Unspecified atrial fibrillation (principal) | CPT/HCPCS: 85610 ==

== ENCOUNTER 2018-07-08 12:34 | Outpatient (CLI) | payer MEDICARE, OTHER | END 2018-07-08 12:35 | disposition home or self-care (01) | LOC: LAB 12:34 | PROVIDERS: ATTEND Nurse Practitioner Family | DX: I48.91 Unspecified atrial fibrillation (principal) | CPT/HCPCS: 85610 ==

== ENCOUNTER 2018-07-18 12:33 | Outpatient (CLI) | payer MEDICARE, OTHER | END 2018-07-18 12:34 | disposition home or self-care (01) | LOC: LAB 12:33 | PROVIDERS: ATTEND Nurse Practitioner Family | DX: I48.91 Unspecified atrial fibrillation (principal) | CPT/HCPCS: 85610 ==

== ENCOUNTER 2018-07-22 14:14 | Outpatient (CLI) | payer MEDICARE, OTHER | END 2018-07-22 14:15 | disposition home or self-care (01) | LOC: LAB 14:14 | PROVIDERS: ATTEND Nurse Practitioner Family | DX: I48.91 Unspecified atrial fibrillation (principal) | CPT/HCPCS: 85610 ==

== ENCOUNTER 2018-07-24 13:26 | Outpatient (CLI) | payer MEDICARE, OTHER | END 2018-07-24 13:27 | disposition home or self-care (01) | LOC: LAB 13:26 | PROVIDERS: ATTEND Nurse Practitioner Family | DX: I48.91 Unspecified atrial fibrillation (principal) | CPT/HCPCS: 85610 ==

== ENCOUNTER 2018-07-29 16:07 | Outpatient (CLI) | payer MEDICARE, OTHER | END 2018-07-29 16:08 | disposition home or self-care (01) | LOC: LAB 16:07 | PROVIDERS: ATTEND Nurse Practitioner Family | DX: I48.91 Unspecified atrial fibrillation (principal) | CPT/HCPCS: 85610 ==

== ENCOUNTER 2018-08-02 14:58 | Outpatient (CLI) | payer MEDICARE, OTHER | END 2018-08-02 14:59 | disposition home or self-care (01) | LOC: LAB 14:58 | PROVIDERS: ATTEND Nurse Practitioner Family | DX: I48.91 Unspecified atrial fibrillation (principal) | CPT/HCPCS: 85610 ==

== ENCOUNTER 2018-08-09 13:50 | Outpatient (CLI) | payer MEDICARE, OTHER | END 2018-08-09 13:51 | disposition home or self-care (01) | LOC: LAB 13:50 | PROVIDERS: ATTEND Nurse Practitioner Family | DX: I48.91 Unspecified atrial fibrillation (principal) | CPT/HCPCS: 85610 ==

== ENCOUNTER 2018-08-13 14:00 | Outpatient (CLI) | payer MEDICARE, OTHER | END 2018-08-13 14:01 | disposition home or self-care (01) | LOC: LAB 14:00 | PROVIDERS: ATTEND Nurse Practitioner Family | DX: I48.91 Unspecified atrial fibrillation (principal) | CPT/HCPCS: 85610 ==

== ENCOUNTER 2018-08-20 08:00 | Outpatient (CLI) | payer MEDICARE, OTHER | END 2018-08-20 23:59 | disposition home or self-care (01) | LOC: LAB 08:00 | PROVIDERS: ATTEND Nurse Practitioner Family | DX: I48.91 Unspecified atrial fibrillation (principal) | CPT/HCPCS: 85610 ==

== ENCOUNTER 2018-09-05 15:27 | Outpatient (CLI) | payer MEDICARE, OTHER | END 2018-09-05 15:28 | disposition home or self-care (01) | LOC: LAB 15:27 | PROVIDERS: ATTEND Nurse Practitioner Family | DX: I48.91 Unspecified atrial fibrillation (principal) | CPT/HCPCS: 85610 ==

== ENCOUNTER 2018-09-16 15:11 | Emergency (ER) | payer MEDICARE, OTHER ==
[2018-09-16 15:17] VITALS: BP 129/100
--- NOTE | 2018-09-16 15:36 | ED Physician Documentation ---
History of Present Illness - Stated complaint Stated Complaint: PICC LINE REMOVAL-MAC PT - Chief complaint Chief Complaint: General - History obtained from History obtained from: Patient - History of Present Illness Timing: Other (He has a PICC line that was being used for antibiotics. He has not used it in a month and he would like it removed.) Review of Systems Constitutional: denies: Fever, Chills Ears: reports: Reviewed and negative Nose: reports: Reviewed and negative PD PAST MEDICAL HISTORY - Past Medical History Cardiovascular: CA, Atrial fibrillation Respiratory: Pneumonia Neuro: None Endocrine/Autoimmune: None GI: None : None HEENT: None Psych: None Musculoskeletal: None Derm: Psoriasis - Past Surgical History Past Surgical History: Yes Ortho: Other Cardiovascular: Coronary stent HEENT: Tracheostomy - Present Medications Home Medications: Ambulatory Orders Medication Instructions Recorded Confirmed Allopurinol 300 mg ORAL DAILY 10/28/13 07/26/18 Lisinopril 20 mg ORAL DAILY 10/28/13 07/26/18 Metoprolol Tartrate [Lopressor] 25 mg ORAL DAILY 10/28/13 07/26/18 Warfarin [Coumadin] 2.5 mg ORAL DAILY 10/28/13 07/26/18 Clopidogrel Bisulfate [Clopidogrel] 1 tab PO DAILY 07/31/18 07/31/18 Furosemide [Lasix] 1 tab PO BID 07/31/18 07/31/18 cefTRIAXone [Rocephin 2 gram] 1 infus.set IV DAILY 07/31/18 07/31/18 metroNIDAZOLE [Metronidazole] 500 mg PO TID 07/31/18 07/31/18 - Allergies Allergies/Adverse Reactions: Allergies Allergy/AdvReac Type Severity Reaction Status Date / Time Dauphdl-Ana-Yxw Reductase AdvReac Dizziness Verified 09/16/18 15:17 Inhibitor - Social History Does the pt smoke?: No Smoking Status: Former smoker Does the pt drink ETOH?: No Does the pt have substance abuse?: No - Immunizations Immunizations are current?: Yes PD ED PE NORMAL - Vitals Vital signs reviewed: Yes - General General: Alert and oriented X 3, No acute distress - Extremities Extremities: Other (There is a noninfected PICC line in the left deep brachial vein that was removed during examination without issue.) - Neuro Neuro: Alert and oriented X 3, Normal speech Results - Vitals Vitals: Vital Signs - 24 hr 09/16/18 15:14 Temperature 36.9 C Heart Rate 90 Respiratory 16 Rate Blood Pressure 129/100 H O2 Saturation 96 Oxygen O2 Source Room air Departure - Departure Disposition: 01 Home, Self Care Clinical Impression: PIC line (peripherally inserted central catheter) removal Condition: Good Record reviewed to determine appropriate education?: Yes Comments: Call your doctor to arrange a follow-up appointment, make the next available appointment. In the interim, return anytime if worse or if new symptoms develop. Your blood pressure was elevated today on check into the emergency department. This does not mean that you have hypertension, it is a common phenomenon to come to the emergency department and have elevated blood pressure. I recommend that you see your primary care physician within the week to have it rechecked when you are feeling better.
== END 2018-09-16 15:46 | disposition home or self-care (01) ==
LOC: ED 15:11
DX: Z45.2 Encounter for adjustment and management of vascular access device (principal); R03.0 Elevated blood-pressure reading, without diagnosis of hypertension; I48.0 Paroxysmal atrial fibrillation; Z79.01 Long term (current) use of anticoagulants; Z87.891 Personal history of nicotine dependence
CPT/HCPCS: 85610; 99282

== ENCOUNTER 2018-09-16 15:55 | Outpatient (CLI) | payer MEDICARE, OTHER | END 2018-09-16 23:59 | disposition home or self-care (01) | LOC: LAB 15:55 | PROVIDERS: ATTEND Family Medicine | DX: I48.0 Paroxysmal atrial fibrillation (principal) | CPT/HCPCS: 85610 ==

== ENCOUNTER 2018-09-24 14:50 | Outpatient (CLI) | payer MEDICARE, OTHER | END 2018-09-24 14:51 | disposition home or self-care (01) | LOC: LAB 14:50 | PROVIDERS: ATTEND Family Medicine | DX: Z79.01 Long term (current) use of anticoagulants (principal) | CPT/HCPCS: 85610 ==

== ENCOUNTER 2018-10-01 15:22 | Outpatient (CLI) | payer MEDICARE, OTHER | END 2018-10-01 15:23 | disposition home or self-care (01) | LOC: LAB 15:22 | PROVIDERS: ATTEND Family Medicine | DX: Z51.81 Encounter for therapeutic drug level monitoring (principal); Z79.01 Long term (current) use of anticoagulants | CPT/HCPCS: 85610 ==

== ENCOUNTER 2018-10-04 10:49 | Outpatient (CLI) | payer MEDICARE, OTHER | END 2018-10-04 10:50 | disposition home or self-care (01) | LOC: LAB 10:49 | PROVIDERS: ATTEND Family Medicine | DX: Z79.01 Long term (current) use of anticoagulants (principal) | CPT/HCPCS: 85610 ==

== ENCOUNTER 2018-10-14 15:03 | Outpatient (CLI) | payer MEDICARE, OTHER | END 2018-10-14 15:04 | disposition home or self-care (01) | LOC: LAB 15:03 | PROVIDERS: ATTEND Family Medicine | DX: Z79.01 Long term (current) use of anticoagulants (principal) | CPT/HCPCS: 85610 ==

== ENCOUNTER 2018-10-31 14:08 | Outpatient (CLI) | payer MEDICARE, OTHER | END 2018-10-31 14:09 | disposition home or self-care (01) | LOC: LAB 14:08 | PROVIDERS: ATTEND Family Medicine | DX: Z79.01 Long term (current) use of anticoagulants (principal) | CPT/HCPCS: 85610 ==

== ENCOUNTER 2018-12-06 15:06 | Outpatient (CLI) | payer MEDICARE, OTHER | END 2018-12-06 15:07 | disposition home or self-care (01) | LOC: LAB 15:06 | PROVIDERS: ATTEND Family Medicine | DX: Z79.01 Long term (current) use of anticoagulants (principal) | CPT/HCPCS: 85610 ==

== ENCOUNTER 2018-12-10 13:26 | Outpatient (CLI) | payer MEDICARE, OTHER | END 2018-12-10 13:27 | disposition home or self-care (01) | LOC: LAB 13:26 | PROVIDERS: ATTEND Family Medicine | DX: Z79.01 Long term (current) use of anticoagulants (principal) | CPT/HCPCS: 85610 ==

== ENCOUNTER 2019-01-07 11:51 | Outpatient (CLI) | payer MEDICARE, OTHER | END 2019-01-07 11:52 | disposition home or self-care (01) | LOC: LAB 11:51 | PROVIDERS: ATTEND Family Medicine | DX: Z79.01 Long term (current) use of anticoagulants (principal) | CPT/HCPCS: 85610 ==

== ENCOUNTER 2019-01-10 16:44 | Emergency (ER) | payer MEDICARE, OTHER ==
--- NOTE | 2019-01-10 17:11 | ED Physician Documentation ---
PD HPI LOWER EXT INJURY - Stated complaint Stated Complaint: R FOOT PX/DISCHARGE - Chief complaint Chief Complaint: Ext Problem - History obtained from History obtained from: Patient - History of Present Illness PD HPI LOW EXT INJURY LOCATION: Right (73-year-old gentleman with history of TIA, peripheral vascular disease, he has had multiple vascular interventions on his legs and most recently had some sort of vascular surgery done by Dr. Mckeon in [place] on 30 December. Over the last few days has developed increasing pain to the fifth toe on the right with some drainage over the last day or so. He denies fevers or chills.) Review of Systems Ten Systems: 10 systems reviewed and negative Constitutional: denies: Fever, Chills Throat: reports: Reviewed and negative Cardiac: reports: Reviewed and negative Respiratory: reports: Reviewed and negative GI: reports: Reviewed and negative PD PAST MEDICAL HISTORY - Past Medical History Past Medical History: Yes Cardiovascular: [place], Atrial fibrillation Respiratory: Pneumonia Neuro: None Endocrine/Autoimmune: None GI: None : None HEENT: None Psych: None Musculoskeletal: None Derm: Psoriasis - Past Surgical History Past Surgical History: Yes Ortho: Other Cardiovascular: Coronary stent HEENT: Tracheostomy - Present Medications Home Medications: Ambulatory Orders Medication Instructions Recorded Confirmed Allopurinol 300 mg ORAL DAILY 10/28/13 07/26/18 Lisinopril 20 mg ORAL DAILY 10/28/13 07/26/18 Metoprolol Tartrate [Lopressor] 25 mg ORAL DAILY 10/28/13 07/26/18 Warfarin [Coumadin] 2.5 mg ORAL DAILY 10/28/13 07/26/18 Clopidogrel Bisulfate [Clopidogrel] 1 tab PO DAILY 07/31/18 07/31/18 Furosemide [Lasix] 1 tab PO BID 07/31/18 07/31/18 cefTRIAXone [Rocephin 2 gram] 1 infus.set IV DAILY 07/31/18 07/31/18 metroNIDAZOLE [Metronidazole] 500 mg PO TID 07/31/18 07/31/18 - Allergies Allergies/Adverse Reactions: Allergies Allergy/AdvReac Type Severity Reaction Status Date / Time [id number]-[id number] Reductase AdvReac Dizziness Verified 01/10/19 16:52 Inhibitor - Social History Does the pt smoke?: No Smoking Status: Former smoker Does the pt drink ETOH?: No Does the pt have substance abuse?: No - Family History Family history: reports: Non contributory - Immunizations Immunizations are current?: Yes PD ED PE NORMAL - Vitals Vital signs reviewed: Yes - General General: Alert and oriented X 3, No acute distress - HEENT HEENT: PERRL, EOMI - Neck Neck: Supple, no meningeal sign, No bony TTP - Abdomen Abdomen: Normal bowel sounds, Soft, Non tender - Back Back: No CVA TTP, No spinal TTP - Derm Derm: Normal color, Warm and dry - Extremities Extremities: Other (The right foot is dusky, there is a shallow ulcer on the medial side of the pinky toe with some purulent drainage, tenderness of the pinky toe. No palpable pulses on exam, asked the nurse to Doppler them.) - Neuro Neuro: Alert and oriented X 3, Normal speech Results - Vitals Vitals: Vital Signs - 24 hr 01/10/19 16:52 Temperature 36.2 C L Heart Rate 91 Respiratory 16 Rate Blood Pressure 113/56 L O2 Saturation 98 Oxygen O2 Source Room air - Labs Labs: Laboratory Tests 01/10/19 01/10/19 01/10/19 17:20 17:20 17:20 WBC 9.3 RBC 3.94 L Hgb 11.6 L Hct 36.8 L MCV 93.4 MCH 29.4 MCHC 31.5 L RDW 14.6 Plt Count 316 MPV 8.8 Neut # (Auto) 6.5 Lymph # (Auto) 1.7 [place] # (Auto) 0.8 Eos # (Auto) 0.3 Baso # (Auto) 0.0 Absolute Nucleated RBC 0.00 Nucleated RBC % 0.0 ESR PT 24.5 H INR 2.3 H Sodium 139 Potassium 5.1 H Chloride 100 L Carbon Dioxide 25 Anion Gap 14.0 H BUN 17 Creatinine 1.0 Estimated GFR (MDRD) 73 L Glucose 93 Calcium 9.3 C-Reactive Protein 7.5 H 01/10/19 17:20 WBC RBC Hgb Hct MCV MCH MCHC RDW Plt Count MPV Neut # (Auto) Lymph # (Auto) [place] # (Auto) Eos # (Auto) Baso # (Auto) Absolute Nucleated RBC Nucleated RBC % ESR 65 H PT INR Sodium Potassium Chloride Carbon Dioxide Anion Gap BUN Creatinine Estimated GFR (MDRD) Glucose Calcium C-Reactive Protein - Rads (name of study) 3v R foot Radiology: EMP read contemporaneously (Absence of the fourth distal phalanx, postsurgical, soft tissue swelling) PD MEDICAL DECISION MAKING - ED course ED course: The nurse was unable to Doppler pulses in the right foot. I used the bedside ultrasound was not able to find any arterial flow in the DP or the PT, also looked in the popliteal fossa without findings of pulsatile flow. A call was placed to vascular surgery in [place] at 5:30 PM I spoke with JANINE Ordoñez, on-call for the vascular surgery service at [place] at approximately 5:45 PM. He knows this patient well. This was basically an expected outcome, they previously had recommended to the patient and amputation seeing no other option for vascular intervention which the patient had refused. I posed this to the patient and he agreed to transfer for potential amputation. Accepted by Dr Thomson, hospitalist At [facility] in transfer at 6:15 PM. [place] were completed. He is stable for transport to a higher level of care for vascular surgery intervention. He received cefepime and vancomycin. Departure - Departure Disposition: 02 Transfer Acute Care Hosp Clinical Impression: Ischemic foot Condition: Serious
[2019-01-10 17:29] LABS: BASOPHILS % (AUTO) 0.4 %; EOSINOPHILS # (AUTO) 0.3 10^3/uL (0.0-0.7); EOSINOPHILS % (AUTO) 2.7 %; HGB - HEMOGLOBIN 11.6 g/dL (14.0-18.0); LYMPHOCYTES # (AUTO) 1.7 10^3/uL (1.5-3.5); LYMPHOCYTES % (AUTO) 18.6 %; MEAN CORPUSCULAR HEMOGLOBIN 29.4 pg (27.0-31.0); MEAN CORPUSCULAR HGB CONC 31.5 g/dL (32.0-36.0); MEAN CORPUSCULAR VOLUME 93.4 fL (80.0-94.0); MEAN PLATELET VOLUME 8.8 fL (7.4-11.4); MONOCYTES # (AUTO) 0.8 10^3/uL (0.0-1.0); MONOCYTES % (AUTO) 8.2 %; NEUTROPHILS # (AUTO) 6.5 10^3/uL (1.5-6.6); NEUTROPHILS % (AUTO) 69.7 %; PLT - PLATELET COUNT 316 10^3/uL (130-450); RED BLOOD COUNT 3.94 10^6/uL (4.70-6.10); RED CELL DISTRIBUTION WIDTH 14.6 % (12.0-15.0); WHITE BLOOD COUNT 9.3 x10^3/uL (4.8-10.8)
[2019-01-10 17:35] LABS: INR 2.3 (0.8-1.2); PT - PROTHROMBIN TIME 24.5 secs (9.9-12.6)
[2019-01-10 17:49] LABS: CALCIUM 9.3 mg/dL (8.5-10.3); CRP - C-REACTIVE PROTEIN 7.5 mg/dL (0-1.0)
[2019-01-10] MEDS ORDERED: VANCOMYCIN INJ 2 GM in SODIUM CHLORIDE 0.9% 500 ML IV STA (17:50)
[2019-01-10] MEDS ORDERED: CEFEPIME 2 GM in SODIUM CHLORIDE 0.9% MINIBAG 100 ML IV STA (17:50)
--- NOTE | 2019-01-10 17:58 | XRAY Report ---
Reason: foot infection 5th toe Procedure Date: 01/10/2019 Accession Number: [id number] / [id number] Procedure: XR - Foot 3 View RT CPT Code: FULL RESULT: EXAM: RIGHT FOOT RADIOGRAPHY EXAM DATE: 01/10/2019 05:20 PM. CLINICAL HISTORY: Foot infection 5th toe. COMPARISON: Right foot radiograph from 06/28/2018. TECHNIQUE: 3 views. FINDINGS: Bones: There is severe osseous demineralization. There is absence of the fourth distal phalanx, the majority of the fourth middle phalanx, and distal aspect of the fourth proximal phalanx laterally. This finding is new since the prior examination of 06/28/2018. No other definite areas of osseous erosion are demonstrated. No acute fracture. Joints: No dislocation or subluxation. There is mild joint space narrowing at the tarsometatarsal joint with mild spurring. Mild joint space narrowing at the first metatarsophalangeal joint. Soft Tissues: There is diffuse soft tissue swelling in the right foot, which is new from the prior examination. The fourth toe appears truncated with smooth margins, suggesting absence of the middle and distal phalanges may be postsurgical in nature. Diffuse arterial calcifications are noted. IMPRESSION: 1. Absence of the fourth distal phalanx, majority of the fourth middle phalanx, and portion of the fourth proximal phalanx. The fourth toe appears truncated with smooth margins, suggesting this could be postsurgical in nature. Recommend correlation with any surgical history. If there is clinical suspicion for cellulitis in this region, osteomyelitis cannot be excluded. 2. No definite radiographic evidence for osteomyelitis elsewhere. 3. Diffuse soft tissue swelling in the right foot, new from the prior examination and potentially representing cellulitis given the clinical history. RADIA
[2019-01-10 19:07] VITALS: BP 176/67
== END 2019-01-10 19:25 | disposition short-term general hospital (02) ==
LOC: ED 16:44
DX: I99.8 Other disorder of circulatory system (principal); L97.518 Non-pressure chronic ulcer of other part of right foot with other specified severity; Z87.891 Personal history of nicotine dependence
CPT/HCPCS: 36415; 73630; 80048; 85025; 85610; 85651; 86140; 87070; 87077; 87181; 87205; 96365; 96375; 99284; 99285; J3370

== ENCOUNTER 2019-01-10 19:16 | Outpatient (CLI) | payer MEDICARE, OTHER | END 2019-01-10 19:17 | disposition short-term general hospital (02) | LOC: EMS 19:16 | PROVIDERS: ATTEND Surgery | DX: M79.89 Other specified soft tissue disorders (principal); I99.8 Other disorder of circulatory system | CPT/HCPCS: A0425; A0426 ==

== ENCOUNTER 2019-02-05 23:25 | Outpatient (CLI) | payer MEDICARE, OTHER ==
[2019-02-05 01:19] LABS: BASOPHILS % (AUTO) 0.4 %; EOSINOPHILS # (AUTO) 0.2 10^3/uL (0.0-0.7); EOSINOPHILS % (AUTO) 1.8 %; HGB - HEMOGLOBIN 10.7 g/dL (14.0-18.0); LYMPHOCYTES # (AUTO) 1.7 10^3/uL (1.5-3.5); LYMPHOCYTES % (AUTO) 18.4 %; MEAN CORPUSCULAR HEMOGLOBIN 29.7 pg (27.0-31.0); MEAN CORPUSCULAR HGB CONC 32.6 g/dL (32.0-36.0); MEAN CORPUSCULAR VOLUME 91.1 fL (80.0-94.0); MONOCYTES # (AUTO) 1.1 10^3/uL (0.0-1.0); MONOCYTES % (AUTO) 11.3 %; NEUTROPHILS # (AUTO) 6.1 10^3/uL (1.5-6.6); NEUTROPHILS % (AUTO) 65.3 %; PLT - PLATELET COUNT 360 10^3/uL (130-450); RED CELL DISTRIBUTION WIDTH 15.1 % (12.0-15.0); WHITE BLOOD COUNT 9.3 x10^3/uL (4.8-10.8)
[2019-02-05 01:21] LABS: BILIRUBIN,URINE NEGATIVE (NEGATIVE); GLUCOSE, URINE (UA) NEGATIVE (NEGATIVE); KETONES,URINE (UA) NEGATIVE (NEGATIVE); LEUKOCYTE ESTERASE, URINE NEGATIVE (NEGATIVE); NITRITE,URINE NEGATIVE (NEGATIVE); OCCULT BLOOD,URINE MODERATE (NEGATIVE); PH,URINE 6.5 PH (5.0-7.5); PROTEIN,URINE NEGATIVE (NEGATIVE); UROBILINOGEN,URINE 0.2 (NORMAL) E.U./dL (NORMAL)
[2019-02-05 01:24] LABS: CLARITY,URINE CLEAR (CLEAR)
[2019-02-05 01:30] LABS: BACTERIA,URINE Rare /HPF (None Seen); RBC,URINE 0-5 /HPF (0-5); SQUAMOUS EPITHELIAL CELL,UR FEW Squamous (<= Few)
[2019-02-05 01:43] LABS: ALBUMIN/GLOBULIN RATIO 0.8 (1.0-2.2); BILIRUBIN,TOTAL 0.8 mg/dL (0.2-1.0); CALCIUM 8.7 mg/dL (8.5-10.3); CREATININE 0.7 mg/dL (0.6-1.2); TOTAL PROTEIN 6.6 g/dL (6.7-8.2)
== END 2019-02-05 23:59 | disposition home or self-care (01) ==
LOC: LAB.R 23:25
DX: Z89.619 Acquired absence of unspecified leg above knee (principal); N39.0 Urinary tract infection, site not specified; D64.9 Anemia, unspecified
CPT/HCPCS: 80053; 81001; 81003; 85025; 87086

== ENCOUNTER 2019-02-24 15:16 | Outpatient (CLI) | payer MEDICARE, OTHER | END 2019-02-24 15:17 | disposition home or self-care (01) | LOC: LAB 15:16 | PROVIDERS: ATTEND Family Medicine | DX: Z79.01 Long term (current) use of anticoagulants (principal) | CPT/HCPCS: 85610 ==

== ENCOUNTER 2019-04-15 11:17 | Outpatient (CLI) | payer MEDICARE, OTHER ==
[2019-04-15 11:51] LABS: BASOPHILS % (AUTO) 0.6 %; EOSINOPHILS # (AUTO) 0.2 10^3/uL (0.0-0.7); EOSINOPHILS % (AUTO) 3.3 %; HGB - HEMOGLOBIN 12.1 g/dL (14.0-18.0); LYMPHOCYTES # (AUTO) 1.8 10^3/uL (1.5-3.5); LYMPHOCYTES % (AUTO) 25.8 %; MEAN CORPUSCULAR HGB CONC 32.1 g/dL (32.0-36.0); MEAN CORPUSCULAR VOLUME 90.4 fL (80.0-94.0); MEAN PLATELET VOLUME 8.2 fL (7.4-11.4); MONOCYTES # (AUTO) 0.7 10^3/uL (0.0-1.0); MONOCYTES % (AUTO) 9.4 %; NEUTROPHILS # (AUTO) 4.1 10^3/uL (1.5-6.6); NEUTROPHILS % (AUTO) 58.6 %; PLT - PLATELET COUNT 175 10^3/uL (130-450); RED BLOOD COUNT 4.17 10^6/uL (4.70-6.10); RED CELL DISTRIBUTION WIDTH 15.9 % (12.0-15.0)
[2019-04-15 12:06] LABS: ALBUMIN 3.9 g/dL (3.2-5.5); ALBUMIN/GLOBULIN RATIO 1.2 (1.0-2.2); BILIRUBIN,TOTAL 0.8 mg/dL (0.2-1.0); CALCIUM 9.2 mg/dL (8.5-10.3); CREATININE 0.7 mg/dL (0.6-1.2); TOTAL PROTEIN 7.1 g/dL (6.7-8.2)
[2019-04-15 12:08] LABS: INR 2.1 (0.8-1.2); PT - PROTHROMBIN TIME 22.7 secs (9.9-12.6)
== END 2019-04-15 11:18 | disposition home or self-care (01) ==
LOC: LAB 11:17
PROVIDERS: ATTEND Nurse Practitioner
DX: I48.91 Unspecified atrial fibrillation (principal); Z79.01 Long term (current) use of anticoagulants; E78.5 Hyperlipidemia, unspecified; I10 Essential (primary) hypertension; I25.10 Atherosclerotic heart disease of native coronary artery without angina pectoris
CPT/HCPCS: 36415; 80053; 85025; 85610

== ENCOUNTER 2019-04-20 12:36 | Outpatient (CLI) | payer MEDICARE, OTHER | END 2019-04-20 12:37 | disposition EMS.NT | LOC: EMS 12:36 | PROVIDERS: ATTEND Surgery | DX: Z03.89 Encounter for observation for other suspected diseases and conditions ruled out (principal) ==

== ENCOUNTER 2019-04-21 08:41 | Outpatient (CLI) | payer MEDICARE, OTHER | END 2019-04-21 08:42 | disposition critical access hospital (66) | LOC: EMS 08:41 | PROVIDERS: ATTEND Surgery | DX: R53.1 Weakness (principal); R52 Pain, unspecified | CPT/HCPCS: A0425; A0429 ==

== ENCOUNTER 2019-04-21 08:45 | Inpatient (IN) | payer MEDICARE, OTHER ==
[2019-04-21] MEDS ORDERED: SODIUM CHLORIDE 0.9% 1,000 ML IV STA (09:06)
--- NOTE | 2019-04-21 09:13 | ED Physician Documentation ---
History of Present Illness - Stated complaint Stated Complaint: WEAKNESS - Chief complaint Chief Complaint: General - History obtained from History obtained from: Patient, Family - History of Present Illness Timing: Today Pain level max: 0 Pain level now: 0 - Additonal information Additional information: 73-year-old male states he has been feeling weak for the past few days. Today he had more trouble than usual getting out of bed to his wheelchair. He states he has not been eating and drinking much lately because food does not taste good to him. No fevers. No vomiting. No diarrhea. Abdominal pain. No chest pain. No shortness of breath. Worse with movement and better with rest. Review of Systems Ten Systems: 10 systems reviewed and negative Constitutional: denies: Fever, Chills Nose: denies: Rhinorrhea / runny nose, Congestion GI: denies: Vomiting, Diarrhea Skin: denies: Rash Musculoskeletal: denies: Neck pain, Back pain Neurologic: denies: Headache PD PAST MEDICAL HISTORY - Past Medical History Cardiovascular: Hypertension, High cholesterol, Coronary artery disease, Peripheral Vascular Disease, [place], Atrial fibrillation Respiratory: Pneumonia Neuro: None Endocrine/Autoimmune: None GI: None : None HEENT: None Psych: None Musculoskeletal: None Derm: Psoriasis - Past Surgical History Past Surgical History: Yes Ortho: Other Cardiovascular: Coronary stent HEENT: Tracheostomy - Present Medications Home Medications: Ambulatory Orders Medication Instructions Recorded Confirmed Furosemide 20 mg PO DAILY 04/21/19 04/21/19 Lisinopril [Zestril] 10 mg PO DAILY 04/21/19 04/21/19 Metoprolol Succinate 12.5 mg PO BID 04/21/19 04/21/19 Warfarin [Coumadin] 2.5 mg PO DAILY 04/21/19 04/21/19 - Allergies Allergies/Adverse Reactions: Allergies Allergy/AdvReac Type Severity Reaction Status Date / Time Zhoaact-Phe-Dlz Reductase AdvReac Dizziness Verified 04/21/19 08:51 Inhibitor - Social History Does the pt smoke?: No Smoking Status: Former smoker Does the pt drink ETOH?: No Does the pt have substance abuse?: No - Immunizations Immunizations are current?: Yes PD ED PE NORMAL - Vitals Vital signs reviewed: Yes - General General: Alert and oriented X 3, No acute distress, Well developed/nourished - HEENT HEENT: PERRL, Other (Dry lips and tongue) - Neck Neck: Supple, no meningeal sign - Cardiac Cardiac: Strong equal pulses, Other (Irregularly irregular) - Respiratory Respiratory: No respiratory distress, Clear bilaterally - Abdomen Abdomen: Soft, Non tender, Non distended - Derm Derm: Warm and dry, No rash - Extremities Extremities: No edema, Other (Right lower extremity amputation.) - Neuro Neuro: Alert and oriented X 3 - Psych Psych: Normal mood, Normal affect Results - Vitals Vitals: Vital Signs - 24 hr 04/21/19 04/21/19 04/21/19 08:51 08:58 10:58 Temperature 37.1 C Heart Rate 120 H 108 H 115 H Respiratory 18 18 19 Rate Blood Pressure 158/76 H 144/73 H 125/68 O2 Saturation 93 100 100 Oxygen O2 Source Room air - EKG (time done) 0848 Rate: Rate (enter#) (105) Rhythm: Atrial fibrillation ( w/ RVR) [place]: Normal QRS: Normal Ischemia: Non specific changes - Labs Labs: Laboratory Tests 04/21/19 04/21/19 04/21/19 09:05 09:05 09:05 WBC 8.6 RBC 3.94 L Hgb 11.5 L Hct 33.9 L MCV 86.0 MCH 29.2 MCHC 33.9 RDW 15.4 H Plt Count 125 L MPV 8.8 Neut # (Auto) 6.3 Lymph # (Auto) 1.0 L [place] # (Auto) 1.1 H Eos # (Auto) 0.0 Baso # (Auto) 0.0 Absolute Nucleated RBC 0.00 Nucleated RBC % 0.0 PT 45.0 H INR 4.3 H Sodium 121 L Potassium 4.5 Chloride 85 L Carbon Dioxide 19 L Anion Gap 17.0 H BUN 32 H Creatinine 0.8 Estimated GFR (MDRD) 94 Glucose 100 Calcium 8.7 Total Bilirubin 2.0 H AST 68 H ALT 16 Alkaline Phosphatase 526 H Total Protein 6.5 L Albumin 3.4 Globulin 3.1 Albumin/Globulin Ratio 1.1 Lipase 21 L - Rads (name of study) CT abdomen pelvis Radiology: Prelim report reviewed, EMP read contemporaneously, See rad report (1. New extensive sclerotic changes throughout the bones suggesting widespread metastatic bone disease, possibly prostate in origin. Nonspecific shotty pelvic lymph nodes seen. 2. Small segmental infarct lower pole left kidney, possibly acute. 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 3. Minimal to mild bilateral pleural effusions and atelectasis. ) PD MEDICAL DECISION MAKING - ED course Complexity details: reviewed results, re-evaluated patient, considered differential, d/w patient, d/w family, d/w business operations consultant ED course: Patient with decreased appetite and decreased oral intake. Now feeling increasingly weak. Has significant hyponatremia from his baseline as well as hypochloremia. Given IV fluids. His liver function tests and alkaline phosphatase were elevated, they have been elevated in the past, more significantly today. CT scan was undertaken and shows likely metastatic disease to his bones from likely prostate cancer. Patient was informed of these results. We will admit the patient for further correction of his significant electrolyte abnormalities. Patient counseled regarding signs and symptoms for which I believe and urgent re-evaluation would be necessary. Patient with good understanding of and agreement to plan and is comfortable going home at this time This document was made in part using voice recognition software. While efforts are made to proofread this document, sound alike and grammatical errors may occur. Departure - Departure Disposition: 66 [facility] DC/Xfer Clinical Impression: Hyponatremia, Hypochloremia, Bony metastasis Condition: Stable Discharge Date/Time: 04/21/19 12:51
[2019-04-21 09:22] LABS: BASOPHILS % (AUTO) 0.2 %; EOSINOPHILS % (AUTO) 0.5 %; HGB - HEMOGLOBIN 11.5 g/dL (14.0-18.0); LYMPHOCYTES % (AUTO) 11.4 %; MEAN CORPUSCULAR HEMOGLOBIN 29.2 pg (27.0-31.0); MEAN CORPUSCULAR HGB CONC 33.9 g/dL (32.0-36.0); MEAN PLATELET VOLUME 8.8 fL (7.4-11.4); MONOCYTES # (AUTO) 1.1 10^3/uL (0.0-1.0); MONOCYTES % (AUTO) 12.8 %; NEUTROPHILS # (AUTO) 6.3 10^3/uL (1.5-6.6); NEUTROPHILS % (AUTO) 73.4 %; PLT - PLATELET COUNT 125 10^3/uL (130-450); RED BLOOD COUNT 3.94 10^6/uL (4.70-6.10); RED CELL DISTRIBUTION WIDTH 15.4 % (12.0-15.0); WHITE BLOOD COUNT 8.6 x10^3/uL (4.8-10.8)
[2019-04-21 09:34] LABS: ALBUMIN 3.4 g/dL (3.2-5.5); ALBUMIN/GLOBULIN RATIO 1.1 (1.0-2.2); CALCIUM 8.7 mg/dL (8.5-10.3); CREATININE 0.8 mg/dL (0.6-1.2); TOTAL PROTEIN 6.5 g/dL (6.7-8.2)
[2019-04-21 09:37] LABS: INR 4.3 (0.8-1.2)
[2019-04-21] MEDS ORDERED: SODIUM CHLORIDE 0.9% 1,000 ML IV ONE (09:45)
[2019-04-21] MEDS ORDERED: IOVERSOL 320 100 ML VIAL IVP ONE ×3 (10:22→13:12)
--- NOTE | 2019-04-21 11:27 | CT Report ---
Reason: weakness, elevated LFTs, thrombocytopenia Procedure Date: 04/21/2019 Accession Number: [id number] / [id number] Procedure: CT - Abdomen/Pelvis W CPT Code: Final Report FULL RESULT: EXAM: CT ABDOMEN AND PELVIS EXAM DATE: 04/21/2019 10:44 AM. CLINICAL HISTORY: Weakness. Elevated liver function tests. COMPARISONS: ABDOMEN W/O 10/31/2013 6:20 AM ABD/KIDNEYS W/WO 11/30/2014 5:01 PM NECK ANGIO 06/07/2017 12:14 PM. TECHNIQUE: Routine helical CT imaging was performed through the abdomen and pelvis. IV contrast: 100 mL Optiray 320. Enteric contrast: No. Reconstructions: Coronal and sagittal. In accordance with CT protocol optimization, one or more of the following dose reduction techniques were utilized for this exam: automated exposure control, adjustment of mA and/or KV based on patient size, or use of iterative reconstructive technique. FINDINGS: Lung Bases: Minimal to mild bilateral pleural effusions and atelectasis is seen, right side greater than left side. Extensive calcified coronary artery disease is present. Liver: Normal. No masses. Gallbladder/Bile Ducts: Unremarkable. Spleen: Focal parenchymal atrophy and hypodensity in the superior spleen is seen, probable old infarct/scarring. Pancreas: Normal. Adrenal Glands: Normal. Kidneys: Simple appearing cyst in the right kidney are seen measuring up to 7.1 cm in the upper pole. New small hypodensity in the lower pole left kidney suggesting infarct is seen (image 40/3). Peritoneal Cavity/Bowel: No free fluid, free air or adenopathy. No masses or acute inflammatory process. The appendix is well visualized and normal. Pelvic Organs: Prostate gland is normal in size. The bladder is unremarkable. A few scattered shotty bilateral pelvic lymph nodes are seen. Dominant left external iliac lymph node measures 1.4 x 1.2 cm (image 73/3). No free fluid. Vasculature: Extensive diffuse calcified atherosclerotic disease of the aorta and iliac vasculature is seen. No acute vascular pathology is identified. Bones: Extensive heterogeneous sclerotic changes are seen throughout the bones suggesting widespread metastatic disease. Finding is new compared with 10/31/2013. Other: None. IMPRESSION: 1. New extensive sclerotic changes throughout the bones suggesting widespread metastatic bone disease, possibly prostate in origin. Nonspecific shotty pelvic lymph nodes seen. 2. Small segmental infarct lower pole left kidney, possibly acute. 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 3. Minimal to mild bilateral pleural effusions and atelectasis. RADIA
[2019-04-21] MEDS ORDERED: ONDANSETRON ODT 4 MG TABLET TL PRN (12:00)
[2019-04-21 12:27] LABS: BILIRUBIN,URINE NEGATIVE (NEGATIVE); GLUCOSE, URINE (UA) NEGATIVE (NEGATIVE); KETONES,URINE (UA) 15 mg/dL (NEGATIVE); LEUKOCYTE ESTERASE, URINE NEGATIVE (NEGATIVE); NITRITE,URINE NEGATIVE (NEGATIVE); OCCULT BLOOD,URINE TRACE-INTA (NEGATIVE); PH,URINE 5.5 PH (5.0-7.5); PROTEIN,URINE 30 mg/dL (NEGATIVE); UROBILINOGEN,URINE 0.2 (NORMAL) E.U./dL (NORMAL)
[2019-04-21 12:28] LABS: CLARITY,URINE CLEAR (CLEAR)
[2019-04-21 12:51] LABS: AMORPHOUS SEDIMENT,UR Rare /LPF; BACTERIA,URINE None Seen /HPF (None Seen); RBC,URINE 0-5 /HPF (0-5); SQUAMOUS EPITHELIAL CELL,UR NONE SEEN (<= Few)
[2019-04-21] MEDS: SODIUM CHLORIDE 0.9% 1,000 ML IV SCH ×2 (13:50→23:58)
--- NOTE | 2019-04-21 16:03 | HISTORY & PHYSICAL EXAMINATION ---
Chief Complaint - Chief Complaint Chief Complaint: weakness and can't get up History of Present Illness - Admitted From Admitted From:: Home/ER - History Obtained From Records Reviewed: Joon History obtained from: Patient, tawnyamickie and Dr. Saha Exam Limitations: fatigue causes him to slow down to talk - History of Present Illness HPI Comment/Other: He is a 73-year-old man who is with a history of coronary artery disease after a stent in 2003, and peripheral vascular disease resulting in osteomyelitis of the toes, and eventual amputation by December 2018. He also has a history of atrial fibrillation with strokes in the right internal capsule, bilateral thalami, and left precentral gyrus area. It is unclear if his strokes were due to A. fib that was not anticoagulated or ischemic. Most of them were in the l eft middle cerebral artery distribution dating to 2013. He regards himself is healthy and independent. In spite of his medical problems he would get in his truck and drive wherever he wanted to drive up until this fall. The leg pain in the foot pain from peripheral vascular disease was very uncomfortable. He eventually ended up with the amputation in December and taken care of by Dr. Walters and has not at [facility]. He feels like he remains relatively independent. He spent time in a wheelchair, but could transfer from the wheelchair to the bed. Wheelchair to a truck. Or go to his kitchen and stand to cook food. About 2 months ago he started having nausea. Unsure what it was from. Food started tasting bad. 2 weeks ago food really developed a bad taste. It did matter if he ate or drank something it just tasted bad. 3 days ago he developed severe esophageal pain. It would hurt in his solar plexus as water or liquid would drop from his esophagus into his stomach. Over the course of this time he felt like he was getting weaker and weaker. A week ago he tried to stand and do dishes and almost did not make it back to his wheelchair. He denies fever, chills. Denies cough, wheezing. No urgency, frequency, or dysuria. There is no hematuria. No flank pain. He had no new neurologic symptoms. Overall just weakness, fatigue, bad appetite. This last Sunday and Sunday he was having a particularly bad time. As you tried to transfer from bed to the wheelchair he did not make it a few times. He would gently slide himself down to the floor and lay there for hours at a time until he got the energy to get up and get back in bed or get back in the wheelchair. He finally came in today because he could not get up anymore. He was evaluated by Dr. Jackson. Weight in September 2018 was 72.5 kg. Weight today is 69.5 kg. Temperature was 37 1, heart rate was 120, respirations were 18 and blood pressure 158/76. 93% saturated on room air. He was felt to be a well- developed well-nourished elderly gentleman with dry lips and tongue. No meningeal signs. An irregularly irregular heartbeat that was tachycardic. Negative lung exam. The right lower extremity amputation. His labs showed him to be mildly anemic at 11.5 g of hemoglobin. Platelets were low at 125. INR is 4.3. He takes Coumadin for A. fib. He is newly hyponatremic at 121. BUN is 32 and creatinine is 0.8. Total bili is 2, AST is 68. Alk phos is 526. He is now admitted for dehydration manifested is dry oral mucosa, tachycardia, electrolyte imbalance. He has a prolonged INR. What is also notable is a CT of the abdomen done due to the elevated liver functions test. He has extensive coronary artery calcification. The liver is without masses. Extensive heterogeneous sclerotic changes seen throughout the bones suggesting widespread metastatic disease. This is new from a October 31, 2013 film. Minimal to mild bilateral pleural effusion. History - Past Medical History Cardiovascular: reports: Hypertension, High cholesterol (Intolerant of statins because they gave him sore feet. He was also tried on Lopid once and it did not work.), Coronary artery disease (PTCA done in approximately 2009), Peripheral Vascular Disease (Bilateral lower extremities with right leg worse than left leg. Bypass and stenting done 07/2018 of right leg and subsequent osteo right 4th toe w amputation 08/2018. Subsequent BKA due to unsuccessful healing and redo unsuccessful angioplasty of right popliteal artery/right leg bypass graft December 2018 when he had dusky right foot in our ER and seen by Iain Bennett MD), [place], Atrial fibrillation (Found when he presented as a TIA in September 2013. MRI at that time showed multiple old strokes in the brain that were old. And then subacute changes. From that time on he was with rate control and anticoagulation. Echocardiogram at that time showed an ejection fraction of 55% with mild left atrial enlargement. He then had another echo in November 2016 and other than severe increase in left atrial size there were no changes. He still has an intact ejection fraction.) Respiratory: reports: Pneumonia (Treated as pneumonia when he presented with syncope and fevers and elevated white cell count in October 2013. In reading the discharge summary there was some doubt on the diagnosis of pneumonia.) Neuro: reports: CVA (Presented as slurred speech in September 2013. MRI at that time showed old strokes in the right internal capsule, bilateral thalamic left greater than right, then 2 weeks later new left pre-central gyrus changes on MRI. Overall MRI reads as left middle cerebral artery distribution strokes. He is not felt to have any residual.) Endocrine/Autoimmune: reports: None GI: reports: Colon polyps (A bout of loose stools resulted in a colonoscopy February 2013. 7 polyps and diverticulosis were found on that scope. Pathology showed tubular adenomas or hyperplastic changes.) : reports: None HEENT: reports: Chronic hearing loss Psych: reports: None Musculoskeletal: reports: Gout, Other (Crush injury of his right leg resulting in a compound fracture in 1972. He was on the job.Osteomyelitis of the right toes in August 2018. After extensive vascular study found to have severe peripheral vascular disease. Chronic nonhealing toe wounds. He had a procedure done in December 2018 at [facility]. It did not work and he presented to our emergency room with severe ischemia of the toes. Transferred to [place] where he underwent a BKA.) Derm: reports: Psoriasis MRSA Hx?: No Other Past Medical History: Eosinophilia on blood work in October 2013 when he was admitted for pneumonia - Past Surgical History Cardiovascular: reports: Coronary stent HEENT: reports: Tracheostomy - Family & Social History Family History Comment/Other: of complications of a stroke in her 80s. Dad of brain aneurysm at the age of 60. 2 brothers and a sister. One brother is incredibly active and still rollerblades all around [place]. One brother lives in [place]. Stop smoking and got plump. His sister is healthy and okay but living in a skilled nursing because of her . She lives there to keep him company. Of his 3 children's they are healthy Living arrangement: At home Living Situation: Alone Social History Notes: Lives in senior subsidized housing here at [facility] in [place]. Moved there in January after his amputation. Lives alone. from his second since 1989. Main support system is Lele Neff who is his power of director customer. He started smoking at the age of 9 and smoked 1-1/2 packs/day and sometimes up to 2 packs/day until the year 2009. He used to be a heavy drinker where he would admittedly drink a sixpack a day. Then with time he get down to 3 a day. Then 1 a day. Now he just does not have a taste for it at all and he has not had anything to drink in over a month and a half. His children live in [place]. He talks to him on the phone off and o n. The person is closest to in his life and he loves them fiercely is his little brother Chencho who lives in [place]. - Substance History Use: Uses substance without health or social issues: NONE Abuse: Recurrent use of substance despite neg consequences: NONE Dependence: Experiences withdrawal or developed tolerances: NONE - POLST Patient has POLST: No POLST Status: DNR (Not only does not want to be resuscitated he is adamant that he never wants to receive blood transfusions. He is not a Jehovah just has deep philosophical beliefs about getting someone else's blood.) Meds/Allgy - Home Medications Home Medications: Ambulatory Orders Medication Instructions Recorded Confirmed Furosemide 20 mg PO DAILY 04/21/19 04/21/19 Lisinopril [Zestril] 10 mg PO DAILY 04/21/19 04/21/19 Metoprolol Succinate 12.5 mg PO BID 04/21/19 04/21/19 Warfarin [Coumadin] 2.5 mg PO DAILY 04/21/19 04/21/19 - Allergies Allergies/Adverse Reactions: Allergies Allergy/AdvReac Type Severity Reaction Status Date / Time Toraxsl-Zpo-Pkk Reductase AdvReac Dizziness Verified 04/21/19 08:51 Inhibitor Review of Systems - Constitutional Constitutional: reports: Fatigue, Malaise, Weakness, Poor appetite, Weight loss. denies: Fever, Chills, Weight gain, Other - Eyes Eyes: reports: Blurred vision. denies: Pain, Irritation, Amaurosis, Spots in vision, Field loss, Vision loss, Dipolpia - Ears, Nose & Throat Ears, Nose & Throat: reports: Hearing loss. denies: Ear pain, Hearing aids, T innitus, Vertigo, Nasal pain, Nasal discharge, Postnasal drainage, Sore throat, Hoarseness - Cardiovascular Cariovascular: reports: Irregular heart rate, Palpitations, Lightheadedness, Exertional dyspnea, Decr. exercise tolerance. denies: Chest pain, Edema, Sy ncope - Respiratory Respiratory: reports: SOB with exertion. denies: Cough, Sputum production, Wheezing, Orthopnea, SOB at rest - Gastrointestinal Gastrointestinal: reports: Change in bowel habits (no poop for a few days but not eating so not worried), Nausea, Vomiting (off and on but not daily. Just once or twice for the last few weeks.), Reflux/heartburn, Poor appetite. denies: Abdominal pain, Abdominal distention, Constipation, Diarrhea, Coffee grounds emesis, Bloating - Genitourinary Genitourinary: denies: Dysuria, Frequency, Urgency, Hematuria, Incontinence, Flank pain - Musculoskeletal Musculoskeletal: reports: Muscle pain, Back pain, Muscle aches, Stiffness, Joint pain, Other (He says that his left hip and left leg are killing him. Laying on the floor this weekend when he was slide out of bed really cause an increase in pain. Just moving his left hip to flex it or extend it causes him to cry out in pain.) - Integumentary Integumentary: reports: Rash (Psoriasis). denies: Pruritis, Lesions - Neurological Neurological: reports: General weakness, Dizziness. denies: Focal weakness, Headache, Numbness, Memory problems, Pre-existing deficit - Psychiatric Psychiatric: denies: Depression, Anxiety, Suicidal - Endocrine Endocrine: reports: Polydypsia (Because he has been unable to get to water very much this weekend he is dying for water. At all he wants to do is drink water.). denies: Polyuria - Hematologic/Lymphatic Hematologic/Lymphatic: denies: Anemia, Bruising, Petechiae Prior Level of Functionality: He was an independent person who could jump in his truck and go over over he wanted to. He used to live in a room in a house of his best friend Lele Neff. Then he started getting ischemia of his right leg, then osteomyelitis of his right foot and he was spending a lot of time in a wheelchair starting in the summer 2018. By December 2018 he was always sedentary and sitting down and in a wheelchair because of that leg. Once he got the BKA he had a little bit more independence and was able to get up and about 10 January but then started getting bad again in February and needing a wheelchair. Up until the last 2 weeks he was making his own food, paying his own bills, dressing himself and feeding himself. Exam - Vital Signs Reviewed Vital Signs: Yes Vital Signs: Vital Signs x48h Temp Pulse Resp BP Pulse Ox 04/21/19 12:30 94 18 105/66 21 L 04/21/19 10:58 115 H 19 125/68 100 04/21/19 08:58 108 H 18 144/73 H 100 04/21/19 08:51 37.1 C 120 H 18 158/76 H 93 - Physical Exam General Appearance: positive: No acute distress, Moderate distress (Just trying to move himself, for example moving his leg to more comfortable position causes him to cry out in pain and grimace.), Other (Tired elderly white male who is so weak he cannot even bring himself to push the button to sit up, and he cannot lift his head above the pillow.) Eyes Bilateral: positive: PERRL, EOMI ENT: positive: Dry mucous membranes Neck: positive: No JVD, Lymphadenopathy (R) (shotty), Lymphadenopathy (L) (shotty), Carotid bruit (bilateral with normal carotid upstroke) Respiratory: positive: Chest non-tender, No respiratory distress. negative: Wheezes, Rales, Rhonchi Cardiovascular: positive: Irregularly irregular, Systolic murmur. negative: Gallop/S4, Friction rub Abdomen: positive: Non-tender, No organomegaly, Nml bowel sounds, No distention, Other. negative: Guarding, Rebound Skin: positive: Warm, Dry, Pallor Extremities: positive: No pedal edema, Other (right bka, painful limb movements of right hip and left hip when he tries to get comfortable. it takes his breath away and is fierce.) Neurologic/Psychiatric: positive: Oriented x3, CN's nml (2-12), Motor nml Conclusion/Plan - Problem List (1) Rhabdomyolysis Conclusion/Plan: This gentleman gives a story of getting progressively anorexic with poor p.o. intake starting 2 months ago and worsened over the last 2 weeks with esophageal pain this last 3 days. That resulted in generalized weakness, and inability to have the strength to transfer from bed to wheelchair. This then resulted in sliding to the floor for several hours both days this last weekend. He now has mild rhabdomyolysis on top of dehydration and weakness. He is already demonstrated that he does not have adequate p.o. intake at home. As such I do not think he should return to home at this time. Plan: Inpatient admission Hydrate until CPK normal Ensure 3 times daily since he is not really eating or drinking much food UGI for the pain Qualifiers: Rhabdomyolysis type: non-traumatic Qualified Code(s): M62.82 - Rhabdomyolysis (2) Dehydration Conclusion/Plan: On physical examination his oral mucosa is quite dry, he is weak. He is tachycardic to 120. Blood pressure is low at times. Even though he was 158 systolic in the emergency room with tachycardia, his blood pressure is 105 systolic on MedSurg. Plan: IV fluid hydration and food (3) Generalized muscle weakness Conclusion/Plan: Currently caused by his dehydration, anorexia. Plan: He really does not want to go to a nursing home facility. He was a [facility] after his BKA. Although he thinks the people there a very nice, it is too noisy, too many people, and not enough privacy. I explained to him that if he cannot demonstrate to us that he can get up out of bed, transfer to wheelchair, go to the bathroom by transferring to toilet, he cannot go home. (4) Hyponatremia Conclusion/Plan: Due to dehydration. Will hydrate with normal saline and recheck tomorrow morning's labs (5) Elevated liver function tests Conclusion/Plan: The elevation of his liver function studies were the reason he had a CT of the abdomen where we discovered the diffusely bony metastatic disease. The liver in and of itself, however, is normal. There are no masses. The gallbladder and bile ducts are unremarkable. Plan: Acute hepatitis panel (6) Supratherapeutic INR Conclusion/Plan: Due to his anorexia, poor p.o. intake. No other medications seem to be involved, for instance no antibiotics. Plan: Hold Coumadin. Let INR drift down on its own. Recheck coagulation studies daily. Resume Coumadin after that. (7) Atrial fibrillation with rapid ventricular response Conclusion/Plan: Heart rate response is most likely due to his volume depletion and dehydration. We will continue IV fluids and resume his beta-ger. Chads score is high. But this gentleman has already manifested symptoms of A. fib when he is not anticoagulated by his strokes in 2013. He will need to go back on Coumadin. (8) Bone metastases Conclusion/Plan: Unknown primary. This is a gentleman who does not have symptoms of prostatism. The CT scan does not show a large prostate. He had a colonoscopy that was negative in 2012. He is a smoker and would be at risk for lung cancer. But the pattern of distribution of this bony metastatic disease is not compatible with anything but prostate or possible multiple myeloma. Plan: Bone biopsy as an outpatient vs Node excision as seen on CT that is easily accessible. Dr. Ellis is willing to do the excisional biopsy but he first would recommend that radiolgy (Dr. Sullivan) try core biopsy first if he is on duty. Free PSA and total PSA Serum protein electrophoresis UGI to see if there is esophageal component. If there is EGD is in order. He asked some questions about prostate cancer. I told him that this is a preliminary answer in view of the fact that we do not have a final diagnosis. He is 73 years old, and prostate cancer can be hormonally manipulated to give him quality time with decent symptom control. He is happy with that because he says he will never undergo chemotherapy or radiation no matter the cancer. - Lab Results Lab results reviewed: Yes Fish Bones: 04/21/19 09:05 04/21/19 09:05 - Diagnostic Imaging Results Diagnostic Imaging Results: positive: Final report reviewed Diagnostic Imaging Results Comments: CT of abdomen and pelvis as reported in history of present illness. The only other addition is a small segmental infarct of the lower pole of the left kidney, possibly acute. Small old infarct and scarring of the spleen is seen and it is chronic. Nonspecific shotty pelvic lymph nodes. Prostate gland normal size. Dominant left external iliac lymph node measuring 1.4 x 1.2 cm. Core Measures - Anticipated LOS I expect patient to be DC'd or transferred within 96 hours.: Yes - DVT/VTE - Prophylaxis VTE/DVT Device ordered at admit?: Yes
[2019-04-21] MEDS: SODIUM CHLORIDE FLUSH 0.9% 10 ML SYRINGE IVP SCH ×2 (17:53→18:32)
[2019-04-21] MEDS ORDERED: GI COCKTAIL 120 ML BOTTLE PO PRN ×2 (18:07→18:13)
[2019-04-21] MEDS: ACETAMINOPHEN 325 MG TABLET PO PRN (18:10)
--- NOTE | 2019-04-21 18:10 | ADVANCE CARE PLANNING NOTE ---
Advance Care Planning - Planning Encounter Date: 04/21/19 Time: 15:00 Purpose: establish goals of care and code status in context of new metastatic disease Parties in Attendance: hsopitalist and patient, I did speak to his Hayley GRADY Decisional Capacity of the Patient: intact. he is alert, lives alone, and was taking care of himself until this illness. POA is Hayley Neff, not his children, - Diagnosis for Encounter (1) Bone metastases Summary: New diagnosis for him. He presents as failure to thrive with anorexia, nausea, weight loss, poor p.o. intake resulting in severe weakness there is been lying on the ground and falling this weekend. He is found to be dehydrated, mild rhabdomyolysis, supratherapeutic INR, severe pain in the hips and pelvis from laying on the floor. CT done for elevated liver enzymes finds him to have diffusely metastatic bony disease. - Encounter Subjective/Patient's Story: He was born in [place]. His first 2 wives there. 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 He works at a [employer]. That works stopped when he had a compound fracture of his right leg on the job in 1972. 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 And did all sorts of things. He had 3 children with his first . She was "a chaser" and was unfaithful. That was why he her. He is never told his children that he thinks that some of them may not be his children. He then his second and she was wonderful. "A peach". But she had 2 children from a previous marriage and those children did not like him. They drove a wedge in their marriage. He felt like he was not wanted and they had a mutual falling out. He still recalls are very fondly. He finally moved to [facility] in 1989 to join his brother Chencho. He fiercely loves his brother Chencho. He says they are very close. 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 He rented a room in her home for a long time. After he had his BKA, however, and he had to do rehab at [facility], he decided that it was "time" to move out from Lele's house and rented senior subsidized housing at [facility] here in [place]. He loves elk hunting. The last time he was able to do that was in 2009. He thinks he was just getting too old and too slow to keep on doing it. He also loves trout fishing. Loves nothing by other than going up to [place] where his brother Chencho has a cabin and property and he goes fishing. He loves getting his truck and just taking off for drive. He would go shopping, library, random stores just a window shop. He started losing mobility in the spring 2018 when he developed symptomatic ischemia of his right leg. That resulted in osteomyelitis of the toes and amputation of the fourth toe in August 2018. The records state that he was offered a BKA but he declined. Then over the summer his right leg pain started getting worse, and he had a frankly dusky foot with and agonizing the painful foot in December 2018. He was seen in our emergency room and transferred to [facility] for he underwent a BKA. After the BKA, he had rehab [facility]. Then by January was living in [facility]. Somewhere in February he started developing anorexia. He was nauseated, just did not want to eat very much. In the last 2 weeks the nausea was accompanied by occasional sporadic vomiting. He was vomiting up undigested food. For the last 3 days his lower chest hurts over the solar plexus. Swallowing water induces severe lower esophageal cramping before water gets into his stomach. He has been wanting to eat. All food taste pretty bad. Starting this last weekend he was so weak that he could not transfer from his wheelchair to the bed. Or the bed to a wheelchair. Sometimes he was slide to the floor lay on the floor for hours. Could not reach the kitchen to get water. He is now in our hospital with dehydration, mild rhabdomyolysis, and severe, severe generalized weakness where he cannot even lift his head off the bed. Unfortunately the CAT scan of his abdomen done for abnormal liver function studies shows him to have diffuse bony disease. He says that he is not willing to give up yet. He is willing to undergo treatment and therapy to keep him living longer. But that is only with the caveats that he would be in his own apartment. He does not know if he is willing to go live in a jail facility on a permanent basis. He says it is too loud, too many people, no privacy and it drives him crazy. He thought that the people there were sweet. They were nice. But he cannot stand all the people. He is highly dubious that if he were ever to require jail facility placement that he would be happy there. He would prefer to be in his own apartment, with hospice to if that were to happen. He also states that he does not want to have blood transfusions. He even told [facility] that when they did his amputation. He is not a Jehovah. He just re ad a book on blood transfusions, and it freaks him out to think that he would get somebody else's blood that was not compatible with his. I have explained to him that all blood is typed and crossed before donated. But he is adamant in stating that "people make mistakes" and he just does not want blood transfusions. But he is willing to have antibiotics, surgeries if needed, pressor agents in ICU, BiPAP in ICU, just no intubation, CPR, or chest compressions. Objective/Medical Story: He is a 73-year-old man who is with a history of coronary artery disease after a stent in 2003, and peripheral vascular disease resulting in osteomyelitis of the toes, and eventual amputation by December 2018. He also has a history of atrial fibrillation with strokes in the right internal capsule, bilateral thalami, and left precentral gyrus area. It is unclear if his strokes were due to A. fib that was not anticoagulated or ischemic. Most of them were in the left middle cerebral artery distribution dating to 2013. He regards himself is healthy and independent. In spite of his medical problems he would get in his truck and drive wherever he wanted to drive up until this fall. The leg pain in the foot pain from peripheral vascular disease was very uncomfortable. He eventually ended up with the amputation in December and taken care of by Dr. Walters and has not at [facility]. He feels like he remains relatively independent. He spent time in a wheelchair, but could transfer from the wheelchair to the bed. Wheelchair to a truck. Or go to his kitchen and stand to cook food. About 2 months ago he started having nausea. Unsure what it was from. Food started tasting bad. 2 weeks ago food really developed a bad taste. It did matter if he ate or drank something it just tasted bad. 3 days ago he developed severe esophageal pain. It would hurt in his solar plexus as water or liquid would drop from his esophagus into his stomach. Over the course of this time he felt like he was getting weaker and weaker. A week ago he tried to stand and do dishes and almost did not make it back to his wheelchair. He denies fever, chills. Denies cough, wheezing. No urgency, frequency, or dysuria. There is no hematuria. No flank pain. He had no new neurologic symptoms. Overall just weakness, fatigue, bad appetite. This last Sunday and Sunday he was having a particularly bad time. As you tried to transfer from bed to the wheelchair he did not make it a few times. He would gently slide himself down to the floor and lay there for hours at a time until he got the energy to get up and get back in bed or get back in the wheelchair. He finally came in today because he could not get up anymore. He was evaluated by Dr. Jackson. Weight in September 2018 was 72.5 kg. Weight today is 69.5 kg. Temperature was 37 1, heart rate was 120, respirations were 18 and blood pressure 158/76. 93% saturated on room air. He was felt to be a well- developed well-nourished elderly gentleman with dry lips and tongue. No meningeal signs. An irregularly irregular heartbeat that was tachycardic. Negative lung exam. The right lower extremity amputation. His labs showed him to be mildly anemic at 11.5 g of hemoglobin. Platelets were low at 125. INR is 4.3. He takes Coumadin for A. fib. He is newly hyponatremic at 121. BUN is 32 and creatinine is 0.8. Total bili is 2, AST is 68. Alk phos is 526. He is now admitted for dehydration manifested is dry oral mucosa, tachycardia, electrolyte imbalance. He has a prolonged INR. What is also notable is a CT of the abdomen done due to the elevated liver functions test. He has extensive coronary artery calcification. The liver is without masses. Extensive heterogeneous sclerotic changes seen throughout the bones suggesting widespread metastatic disease. This is new from a October 31, 2013 film. Minimal to mild bilateral pleural effusion. - Past Medical History Cardiovascular: + Hypertension, +High cholesterol (Intolerant of statins because they gave him sore feet. He was also tried on Lopid once and it did not work.), Coronary artery disease (PTCA done in approximately 2009), +Peripheral Vascular Disease (Bilateral lower extremities with right leg worse than left leg. Bypass and stenting done 07/2018 of right leg and subsequent osteo right 4th toe w amputation 08/2018. Subsequent BKA due to unsuccessful healing and redo unsuccessful angioplasty of right popliteal artery/right leg bypass graft December 2018 when he had dusky right foot in our ER and seen by Iain Bennett MD), SD, +Atrial fibrillation (Found when he presented as a TIA in September 2013. MRI at that time showed multiple old strokes in the brain that were old. And then subacute changes. From that time on he was with rate control and anticoagulation. Echocardiogram at that time showed an ejection fraction of 55% with mild left atrial enlargement. He then had another echo in November 2016 and other than severe increase in left atrial size there were no changes. He still has an intact ejection fraction.) Respiratory: Pneumonia (Treated as pneumonia when he presented with syncope and fevers and elevated white cell count in October 2013. In reading the discharge summary there was some doubt on the diagnosis of pneumonia.) Neuro: CVA-Presented as slurred speech in September 2013. MRI at that time showed old strokes in the right internal capsule, bilateral thalamic left greater than right, then 2 weeks later new left pre-central gyrus changes on MRI. Overall MRI reads as left middle cerebral artery distribution strokes. He is not felt to have any residual. GI: Colon polyps-A bout of loose stools resulted in a colonoscopy February 2013. 7 polyps and diverticulosis were found on that scope. Pathology showed tubular adenomas or hyperplastic changes. : None HEENT: Chronic hearing loss Musculoskeletal: +Gout, +Crush injury of his right leg resulting in a compound fracture in 1972. He was on the job. +Osteomyelitis of the right toes in July 2018. After extensive vascular study found to have severe peripheral vascular disease. Chronic nonhealing toe wounds.s/p toe amputation August 2018 after refusing BKA. Returned with pain dusky toes 12/2018 to our ER and transferred to [place] where he underwent a BKA. Derm: reports: Psoriasis MRSA Hx?: No Other Past Medical History: Eosinophilia on blood work in October 2013 when he was admitted for pneumonia Goals of Care: 1. To remain in his apartment for as long as possible. After discussion with Lele, his power of consulting manager, he will then make future plans if he has to. 2. Willing to undergo treatment of his metastatic disease as long as there is no radiation therapy. He will discuss certain chemotherapy, or hormonal manipulation with an oncologist. After discussing side effects, he may or may not do that. 3. Willing to undergo the work-up to find out where the source of his metastatic disease is from 4. DO NOT RESUSCITATE status Plan: 1. I have already spoken to his power of consulting manager on the phone and updated her. She states that she will call his children. He is not happy about that because they are going to "worry" and "driving him crazy". 2. POLST form 3. I have discussed the case with Dr. Deejay Ellis. He recommends a core biopsy of a left inguinal node first. If that cannot be done he is willing to consider doing an excisional biopsy of the left inguinal groin node to identify primary Code Status: Do Not Attempt Resuscitation Time spent on advance care plannin minutes
[2019-04-21] MEDS: PANTOPRAZOLE 40 MG VIAL IVP SCH (18:32)
[2019-04-21] MEDS: GI COCKTAIL 120 ML BOTTLE PO PRN (18:33)
--- NOTE | 2019-04-21 18:47 | PHARMACY PROGRESS NOTE ---
- Best Possible Medication History Admit Date and Time: 04/21/19 1200 Processed by: Nursing (brian Ramirez; secondary = pharmacy) Medication History completed: Yes Patient Interview: Completed Secondary Source(s): Prescription bottles, Insurance records As the person ultimately responsible for medication therapy, providers are able to order a medication from an existing home medication list in [facility] via the "Reconcile Routine" prior to Confirmation of that medication by web support engineer. Such practice is discouraged except when the physician, in their clinical judgment, deems that a medical need exists for a medication without regard to previous use.
[2019-04-21] MEDS ORDERED: PHYTONADIONE 10 MG/ML AMP PO ONE (19:10)
[2019-04-21] MEDS ORDERED: CHERRY SYRUP 10 ML UDC PO ONE (19:10)
--- NOTE | 2019-04-21 19:55 | XRAY Report ---
Reason: falls w severe bone pain Procedure Date: 04/21/2019 Accession Number: [id number] / [id number] Procedure: XR - Hip w/Pelvis 2-3V LT CPT Code: Final Report FULL RESULT: EXAM: PELVIS AND LEFT HIP RADIOGRAPHY EXAM DATE: 04/21/2019 07:31 PM. CLINICAL HISTORY: Fall, pain. COMPARISON: None. TECHNIQUE: Pelvis and left hip, each 1 view. FINDINGS: Bones: Extensive patchy sclerosis throughout visualized bony structures. No definite fracture or other bone lesion. Joints: Normal. No dislocation. The hip joint space is preserved. Soft Tissues: Nonspecific bowel gas pattern. Contrast material in urinary bladder from preceding CT scan. Vascular calcifications and stents. IMPRESSION: Extensive sclerotic bone metastases. No definite acute disease. RADIA
[2019-04-21] MEDS: oxyCODONE 5 MG TABLET PO PRN (21:06)
[2019-04-22 05:37] LABS: BASOPHILS % (AUTO) 0.2 %; EOSINOPHILS # (AUTO) 0.1 10^3/uL (0.0-0.7); HGB - HEMOGLOBIN 9.5 g/dL (14.0-18.0); LYMPHOCYTES # (AUTO) 0.9 10^3/uL (1.5-3.5); MEAN CORPUSCULAR HEMOGLOBIN 27.6 pg (27.0-31.0); MEAN CORPUSCULAR HGB CONC 32.3 g/dL (32.0-36.0); MEAN CORPUSCULAR VOLUME 85.5 fL (80.0-94.0); MEAN PLATELET VOLUME 8.8 fL (7.4-11.4); MONOCYTES # (AUTO) 0.8 10^3/uL (0.0-1.0); MONOCYTES % (AUTO) 12.5 %; NEUTROPHILS # (AUTO) 4.4 10^3/uL (1.5-6.6); NEUTROPHILS % (AUTO) 69.5 %; PLT - PLATELET COUNT 121 10^3/uL (130-450); RED BLOOD COUNT 3.44 10^6/uL (4.70-6.10); RED CELL DISTRIBUTION WIDTH 15.8 % (12.0-15.0); WHITE BLOOD COUNT 6.3 x10^3/uL (4.8-10.8)
[2019-04-22 05:39] LABS: INR 2.2 (0.8-1.2); PT - PROTHROMBIN TIME 23.7 secs (9.9-12.6)
[2019-04-22 05:48] LABS: CALCIUM 7.9 mg/dL (8.5-10.3); CREATININE 0.7 mg/dL (0.6-1.2)
[2019-04-22] MEDS: SODIUM CHLORIDE FLUSH 0.9% 10 ML SYRINGE IVP PRN (06:57)
[2019-04-22] MEDS: PANTOPRAZOLE 40 MG VIAL IVP SCH (06:57)
[2019-04-22 07:00] LABS: PSA FREE > 160.000 ng/mL (0.16-2.81); PSA TOTAL > 1210.000 ng/mL (0.000-2.000)
[2019-04-22] MEDS: SODIUM CHLORIDE FLUSH 0.9% 10 ML SYRINGE IVP SCH ×2 (08:07→18:29)
[2019-04-22] MEDS: DOCUSATE SODIUM 250 MG CAPSULE PO SCH (08:35)
[2019-04-22] MEDS: SENNA 8.6 MG TABLET PO SCH (08:35)
[2019-04-22] MEDS ORDERED: polyethylene glycoL 3350 17 GM PACKET PO SCH (09:00)
[2019-04-22] MEDS: SODIUM CHLORIDE 0.9% 1,000 ML IV SCH ×2 (10:03→20:54)
--- NOTE | 2019-04-22 16:05 | PROVIDER PROGRESS NOTE ---
Assessment/Plan - Problem List (1) Rhabdomyolysis Qualifiers: Rhabdomyolysis type: non-traumatic Qualified Code(s): M62.82 - Rhabdomyolysis Assessment/Plan: CK was 672, today down to 300. Continue with IV fluids. Follow daily total CK Explained to the patient and also his caregiver Lele this plan (2) Dehydration Assessment/Plan: He is clinically not dehydrated with moist oral mucosa. He is still not able to take adequate p.o. intake to remain rehydrated. Continue with IV fluids. Follow BMP daily (3) Hyponatremia Assessment/Plan: Sodium of 121 is improved to 123. Continue with IV saline hydration (4) Odynophagia Assessment/Plan: The patient could not undergo esophagram because of inability to stand and cooperate with positioning in DI, due to his BKA. I suspect he may have esophageal stricture with the description of how even fluids are hard to swallow. We will order the speech therapist to do swallowing eval with barium and fluoroscopy. Until then, will change diet to clear liquids. This entire plan was discussed with the patient and his DPOA Lele at bedside (5) Bony metastasis Assessment/Plan: General evaluation has shown he has a very elevated PSA, prostate may be the primary. There was a lymph node that was possibly able to be biopsied however our radiologist, Dr. jose g sebastian, looked at these images and said it was not biopsy able. Patient will need [facility] Oncology eval and management when he is ready for discharge (6) Elevated PSA Assessment/Plan: As above, prostate may be the primary site of malignancy (7) Anemia Assessment/Plan: Probably from hemodilution but will check B12, folate levels and replace if low (8) Generalized muscle weakness Assessment/Plan: Will start PT for arm strengthening since his goal is transitioning from bed to chair, no walking since the R BKA (9) PVD (peripheral vascular disease) Assessment/Plan: His right leg ischemia led to osteomyelitis which eventually resulted in right BKA done in December 2018 (10) Hx of coronary artery disease Assessment/Plan: Continue with beta-ger, aspirin. He is unable to tolerate statin or Lopid. (11) Hx of right BKA Assessment/Plan: As above (12) History of CVA (cerebrovascular accident) Assessment/Plan: He has had multiple lacunar infarcts. There is probably no residual muscle weakness (13) Hx of atrial fibrillation, no current medication Assessment/Plan: Patient was on Coumadin, this was is on hold because of high INR. Will resume when it is in therapeutic range. This admission telemetry shows that he is in normal sinus rhythm however - Current Meds Current Meds: Current Medications Generic Name Dose Route Start Last Admin Trade Name Freq PRN Reason Stop Dose Admin Acetaminophen 650 mg 04/21/19 12:00 04/21/19 18:10 Tylenol PO 650 mg Q4HR PRN Administration Pain 1 to 4 Docusate Sodium 250 - 500 mg 04/22/19 09:00 04/22/19 08:35 Colace 250mg Capsule PO Not Given DAILY CHARLENE Sodium Chloride 1,000 mls @ 100 mls/hr 04/21/19 12:00 04/22/19 10:03 Normal Saline 0.9% IV 100 mls/hr .Q10H CHARLENE Administration Multi-Ingredient Mouthwash/Gargle 30 ml 04/21/19 18:14 04/21/19 18:33 PO 30 ml Q8H PRN Administration INDIGESTION Oxycodone HCl 5 mg 04/21/19 12:00 04/21/19 21:06 Roxicodone PO 5 mg Q4HR PRN Administration Pain 5 to 7 Pantoprazole Sodium 40 mg 04/21/19 19:00 04/22/19 06:57 Protonix IVP 40 mg QDAC CHARLENE Administration Senna 8.6 - 17.2 mg 04/22/19 09:00 04/22/19 08:35 Senokot PO Not Given DAILY CHARLENE Sodium Chloride 10 ml 04/21/19 12:00 04/22/19 06:57 Normal Saline Flush 0.9% IVP 10 ml PRN PRN Administration NEEDED PER PROVIDER ORDERS Sodium Chloride 10 ml 04/21/19 17:00 04/22/19 08:07 Normal Saline Flush 0.9% IVP Not Given 0100,0900,1700 CHARLENE - Lab Result Fish Bone Diagrams: 04/22/19 05:00 04/22/19 05:00 - Additional Planning My Orders: My Active Orders 04/22/19 12:27 Cine Barium Swallow [Modified Barium Swallow W/SP] [FL] Routine 04/22/19 Lunch DIET [Clear Liquid Diet] [DIET] 04/23/19 09:00 Metoprolol Succinate [Toprol Xl] 25 mg PO DAILY Subjective - Subjective Patient Reports: Feeling Better, Other (Still painful in throat, neck and upper chest to swallow, even liquids) Objective Vital Signs: Vital Signs - 24 hr 04/21/19 04/22/19 23:50 08:00 Temperature 36.6 C 36.4 C L Heart Rate [ 89 92 Brachial] Respiratory 18 18 Rate Blood Pressure 126/56 L 121/65 [Left Brachial artery] O2 Saturation 99 96 Oxygen O2 Source Room air I&O (Last 24 Hrs): Intake and Output Totals x24h 04/20/19 04/21/19 04/22/19 23:59 23:59 23:59 Intake Total 3590 1100 Output Total 950 550 Balance 2640 550 General: Alert, Oriented x3 HEENT: Mucous membr. moist/pink Neck: Supple, No JVD Neuro: Alert, Non Focal Cardiovascular: Regular rate Respiratory: No respiratory distress, Other (Increased AP diameter) Abdomen: Normal bowel sounds, Soft Extremities: No edema, Other (R BKA) - Results Results: Laboratory Results WBC 6.3 x10^3/uL (4.8-10.8) 04/22/19 05:00 RBC 3.44 10^6/uL (4.70-6.10) L 04/22/19 05:00 Hgb 9.5 g/dL (14.0-18.0) L 04/22/19 05:00 Hct 29.4 % (42.0-52.0) L 04/22/19 05:00 MCV 85.5 fL (80.0-94.0) 04/22/19 05:00 MCH 27.6 pg (27.0-31.0) 04/22/19 05:00 MCHC 32.3 g/dL (32.0-36.0) 04/22/19 05:00 RDW 15.8 % (12.0-15.0) H 04/22/19 05:00 Plt Count 121 10^3/uL (130-450) L 04/22/19 05:00 MPV 8.8 fL (7.4-11.4) 04/22/19 05:00 Neut # (Auto) 4.4 10^3/uL (1.5-6.6) 04/22/19 05:00 Lymph # (Auto) 0.9 10^3/uL (1.5-3.5) L 04/22/19 05:00 Smyth # (Auto) 0.8 10^3/uL (0.0-1.0) 04/22/19 05:00 Eos # (Auto) 0.1 10^3/uL (0.0-0.7) 04/22/19 05:00 Baso # (Auto) 0.0 10^3/uL (0.0-0.1) 04/22/19 05:00 Absolute Nucleated RBC 0.00 x10^3/uL 04/22/19 05:00 Nucleated RBC % 0.0 /100WBC 04/22/19 05:00 PT 23.7 secs (9.9-12.6) H 04/22/19 05:00 INR 2.2 (0.8-1.2) H 04/22/19 05:00 Sodium 123 mmol/L (135-145) L 04/22/19 05:00 Potassium 4.1 mmol/L (3.5-5.0) 04/22/19 05:00 Chloride 95 mmol/L (101-111) L 04/22/19 05:00 Carbon Dioxide 18 mmol/L (21-32) L 04/22/19 05:00 Anion Gap 10.0 (6-13) 04/22/19 05:00 BUN 21 mg/dL (6-20) H 04/22/19 05:00 Creatinine 0.7 mg/dL (0.6-1.2) 04/22/19 05:00 Estimated GFR (MDRD) 110 (>89) 04/22/19 05:00 Glucose 115 mg/dL (70-100) H 04/22/19 05:00 Calcium 7.9 mg/dL (8.5-10.3) L 04/22/19 05:00 Total Bilirubin 2.0 mg/dL (0.2-1.0) H 04/21/19 09:05 AST 68 IU/L (10-42) H 04/21/19 09:05 ALT 16 IU/L (10-60) 04/21/19 09:05 Alkaline Phosphatase 526 IU/L (42-121) H 04/21/19 09:05 Total Creatine Kinase 320 IU/L (22-269) H 04/22/19 05:00 Total Protein 6.5 g/dL (6.7-8.2) L 04/21/19 09:05 Albumin 3.4 g/dL (3.2-5.5) 04/21/19 09:05 Globulin 3.1 g/dL (2.1-4.2) 04/21/19 09:05 Albumin/Globulin Ratio 1.1 (1.0-2.2) 04/21/19 09:05 Lipase 21 U/L (22-51) L 04/21/19 09:05 Prostate Specific Ag > 1210.000 ng/mL (0.000-2.000) H 04/22/19 05:00 Free PSA > 160.000 ng/mL (0.16-2.81) H 04/22/19 05:00 % Free PSA Calc Not Reportable 04/22/19 05:00 Urine Color YELLOW 04/21/19 12:10 Urine Clarity CLEAR (CLEAR) 04/21/19 12:10 Urine pH 5.5 PH (5.0-7.5) 04/21/19 12:10 Ur Specific [place] 1.020 (1.002-1.030) 04/21/19 12:10 Urine Protein 30 mg/dL (NEGATIVE) H 04/21/19 12:10 Urine Glucose (UA) NEGATIVE mg/dL (NEGATIVE) 04/21/19 12:10 Urine Ketones 15 mg/dL (NEGATIVE) H 04/21/19 12:10 Urine Occult Blood TRACE-INTA (NEGATIVE) 04/21/19 12:10 Urine Nitrite NEGATIVE (NEGATIVE) 04/21/19 12:10 Urine Bilirubin NEGATIVE (NEGATIVE) 04/21/19 12:10 Urine Urobilinogen 0.2 (NORMAL) E.U./dL (NORMAL) 04/21/19 12:10 Ur Leukocyte Esterase NEGATIVE (NEGATIVE) 04/21/19 12:10 Urine RBC 0-5 /HPF (0-5) 04/21/19 12:10 Urine WBC 0-3 /HPF (0-3) 04/21/19 12:10 Ur Squamous Epith Cells NONE SEEN (<= Few) 04/21/19 12:10 Amorphous Sediment Rare /LPF 04/21/19 12:10 Urine Bacteria None Seen /HPF (None Seen) 04/21/19 12:10 Ur Microscopic Review INDICATED 04/21/19 12:10 Urine Culture Comments NOT INDICATED 04/21/19 12:10 - Procedures Procedures: Procedures ENDO RECTUM POLYPECTOMY (03/04/13) ENDOSC POLYPECTOMY OF LG INTEST (03/04/13) VENOUS CATHETERIZATION NEC (10/28/13)
[2019-04-23] MEDS: HYDROmorphone 1 MG/ML CARPUJECT IVP PRN ×2 (00:40→23:45)
[2019-04-23] MEDS: ONDANSETRON 4 MG/2 ML VIAL IVP PRN ×3 (00:40→23:45)
[2019-04-23] MEDS: GI COCKTAIL 120 ML BOTTLE PO PRN (00:40)
[2019-04-23] MEDS: SODIUM CHLORIDE FLUSH 0.9% 10 ML SYRINGE IVP SCH ×4 (00:41→23:52)
[2019-04-23 04:49] LABS: BASOPHILS % (AUTO) 0.3 %; EOSINOPHILS # (AUTO) 0.1 10^3/uL (0.0-0.7); HGB - HEMOGLOBIN 9.8 g/dL (14.0-18.0); LYMPHOCYTES # (AUTO) 1.2 10^3/uL (1.5-3.5); LYMPHOCYTES % (AUTO) 17.6 %; MEAN CORPUSCULAR HEMOGLOBIN 28.4 pg (27.0-31.0); MEAN CORPUSCULAR HGB CONC 32.7 g/dL (32.0-36.0); MEAN PLATELET VOLUME 8.7 fL (7.4-11.4); MONOCYTES # (AUTO) 0.9 10^3/uL (0.0-1.0); MONOCYTES % (AUTO) 12.9 %; NEUTROPHILS # (AUTO) 4.5 10^3/uL (1.5-6.6); NEUTROPHILS % (AUTO) 65.2 %; PLT - PLATELET COUNT 128 10^3/uL (130-450); RED BLOOD COUNT 3.45 10^6/uL (4.70-6.10); RED CELL DISTRIBUTION WIDTH 16.1 % (12.0-15.0); WHITE BLOOD COUNT 6.9 x10^3/uL (4.8-10.8)
[2019-04-23 05:12] LABS: CALCIUM 8.4 mg/dL (8.5-10.3); CREATININE 0.6 mg/dL (0.6-1.2)
[2019-04-23 05:31] LABS: FOLATE 7.39 ng/mL (5.90 - >24.8)
[2019-04-23] MEDS: SODIUM CHLORIDE 0.9% 1,000 ML IV SCH ×2 (06:23→17:41)
[2019-04-23] MEDS: PANTOPRAZOLE 40 MG VIAL IVP SCH (06:24)
[2019-04-23] MEDS: DOCUSATE SODIUM 250 MG CAPSULE PO SCH (08:35)
[2019-04-23] MEDS: METOPROLOL SUCCINATE 25 MG TABLET PO SCH (08:36)
[2019-04-23] MEDS: SENNA 8.6 MG TABLET PO SCH (08:36)
[2019-04-23] MEDS: TAMSULOSIN 0.4 MG CAPSULE PO SCH (12:01)
[2019-04-23 12:39] LABS: HEPATITIS A IGM NON-REACTIVE (NON-REACTIVE); HEPATITIS B SURFACE ANTIGEN NON-REACTIVE (NON-REACTIVE); HEPATITIS C ANTIBODY NON-REACTIVE (NON-REACTIVE)
[2019-04-23] MEDS: SODIUM CHLORIDE FLUSH 0.9% 10 ML SYRINGE IVP PRN (13:25)
[2019-04-23] MEDS: oxyCODONE 5 MG TABLET PO PRN (13:25)
[2019-04-23] MEDS ORDERED: WARFARIN 5 MG TABLET PO SCH (14:00)
--- NOTE | 2019-04-23 15:13 | XRAY Report ---
Reason: Severe pain (?obstr) when swallows Procedure Date: 04/23/2019 Accession Number: [id number] / [id number] Procedure: FL - Modified Barium Swallow W/SP CPT Code: Final Report FULL RESULT: EXAM: MODIFIED BARIUM SWALLOW EXAM DATE: 04/23/2019 02:54 PM. CLINICAL HISTORY: Severe pain (?Obstruction) when swallows. COMPARISON: None. TECHNIQUE: Under the direction of speech pathology, patient swallowed various consistencies of barium under lateral fluoroscopic observation of the neck. Fluoroscopy Time: 51 seconds. Number of Images: 60. FINDINGS: Swallowing Mechanism: Normal oral phase and delayed swallowing reflex. Airway Protection: Normal epiglottic motion. No episodes of tracheal penetration or aspiration with all consistencies of barium. Pharynx: Normal. No significant vallecular or piriform sinus contrast pooling. Other: None. IMPRESSION: No aspiration is identified. RADIA
[2019-04-23] MEDS: ACETAMINOPHEN 325 MG TABLET PO PRN (17:39)
--- NOTE | 2019-04-23 17:47 | PROVIDER PROGRESS NOTE ---
Assessment/Plan - Problem List (1) Rhabdomyolysis Qualifiers: Rhabdomyolysis type: non-traumatic Qualified Code(s): M62.82 - Rhabdomyolysis Assessment/Plan: CK pending, but was trending down (2) Hyponatremia Assessment/Plan: Improving on iv with 0.9 Normal saline Follow BMP daily (3) Odynophagia Assessment/Plan: Patient had a fluoroscopy barium swallow today which showed completely normal swallowing function. The speech therapist advised that he have a soft diet because of being edentulous. Will request an EGD from general surgeon. This was discussed with Dr. Pedro Haro who will do it tomorrow (4) Severe protein-calorie malnutrition Assessment/Plan: Patient has had intake of less than 50% of recommended for 2 weeks or more and a weight loss of 6.7% in the past 1 month. He has been bedridden and has significantly reduced functional capacity. Appreciate registered dietitian and speech therapist inputs (5) Bony metastasis Assessment/Plan: He does complain of pain "all over". Elevated PSA has been found, prostate cancer may be a primary. EGD will also evaluate for any possible intramucosal mass. The patient and caregiver/POA were already told that this will need an outpatient work-up after discharge (6) Elevated PSA Assessment/Plan: As above (7) Anemia Qualifiers: Anemia type: iron deficiency Assessment/Plan: B12 and folate levels are adequate. Iron stores are low. We will start oral liquid iron replacement (8) Generalized muscle weakness Assessment/Plan: PT was ordered to start arm strengthening since his main ability needs to be transitioning from bed to chair. The morning the patient did not want to cooperate with PT, When he was taken to x-ray for fluoroscopy, he needed max assist (9) PVD (peripheral vascular disease) Assessment/Plan: As per Hx (10) Hx of coronary artery disease Assessment/Plan: As per Hx (12) History of CVA (cerebrovascular accident) Assessment/Plan: No focal deficits (13) Hx of atrial fibrillation, no current medication Assessment/Plan: Currently in sinus rhythm The INR was excessive on admission, this morning 2.2. We will resume his Coumadin Follow INR daily while here (14) Dehydration Assessment/Plan: Resolved, with normal BUN/creatinine ratio as of today - Current Meds Current Meds: Current Medications Generic Name Dose Route Start Last Admin Trade Name Freq PRN Reason Stop Dose Admin Acetaminophen 650 mg 04/21/19 12:00 04/23/19 17:39 Tylenol PO 650 mg Q4HR PRN Administration Pain 1 to 4 Docusate Sodium 250 - 500 mg 04/22/19 09:00 04/23/19 08:35 Colace 250mg Capsule PO 250 mg DAILY CHARLENE Administration Hydromorphone HCl 1 mg 04/22/19 23:43 04/23/19 00:40 Dilaudid Inj Carp IVP 1 mg Q3HR PRN Administration PAIN Sodium Chloride 1,000 mls @ 100 mls/hr 04/21/19 12:00 04/23/19 17:41 Normal Saline 0.9% IV 100 mls/hr .Q10H CHARLENE Administration Metoprolol Succinate 25 mg 04/23/19 09:00 04/23/19 08:36 Toprol Xl PO 25 mg DAILY CHARLENE Administration Multi-Ingredient Mouthwash/Gargle 30 ml 04/21/19 18:14 04/23/19 00:40 PO 30 ml Q8H PRN Administration INDIGESTION Ondansetron HCl 4 mg 04/21/19 12:00 04/23/19 13:25 Zofran Inj IVP 4 mg Q6HR PRN Administration Nausea / Vomiting Oxycodone HCl 5 mg 04/21/19 12:00 04/23/19 13:25 Roxicodone PO 5 mg Q4HR PRN Administration Pain 5 to 7 Pantoprazole Sodium 40 mg 04/21/19 19:00 04/23/19 06:24 Protonix IVP 40 mg QDAC CHARLENE Administration Senna 8.6 - 17.2 mg 04/22/19 09:00 04/23/19 08:36 Senokot PO 8.6 mg DAILY CHARLENE Administration Sodium Chloride 10 ml 04/21/19 12:00 04/23/19 13:25 Normal Saline Flush 0.9% IVP 10 ml PRN PRN Administration NEEDED PER PROVIDER ORDERS Sodium Chloride 10 ml 04/21/19 17:00 04/23/19 17:41 Normal Saline Flush 0.9% IVP Not Given 0100,0900,1700 CHARLENE Tamsulosin HCl 0.4 mg 04/23/19 12:00 04/23/19 12:01 Flomax PO 0.4 mg DAILY CHARLENE Administration Warfarin Sodium 5 mg 04/23/19 14:00 04/23/19 14:45 Coumadin PO 5 mg WESA CHARLENE Administration - Lab Result Fish Bone Diagrams: 04/23/19 04:35 04/23/19 04:35 - Additional Planning My Orders: My Active Orders 04/23/19 General Surgery Consult [CONS] Routine 04/23/19 09:00 Metoprolol Succinate [Toprol Xl] 25 mg PO DAILY 04/23/19 10:38 Bladder Scan [RC] PRN 04/23/19 12:00 Tamsulosin [Flomax] 0.4 mg PO DAILY 04/23/19 14:00 Warfarin [Coumadin] 5 mg PO WESA 04/23/19 15:29 Straight Catheter Insertion [RC] PRN 04/23/19 Dinner DIET [Soft Mechanical Diet] [DIET] 04/24/19 00:01 DIET [NPO except Meds at Midnight] [DIET] 04/24/19 05:00 PT WITH INR [COAG] DAILYLAB 04/24/19 14:00 Warfarin [Coumadin] 2.5 mg PO SUMOTUTHFR 04/25/19 05:00 PT WITH INR [COAG] DAILYLAB 04/26/19 05:00 PT WITH INR [COAG] DAILYLAB Objective Vital Signs: Vital Signs - 24 hr 04/23/19 04/23/19 04/23/19 00:00 08:37 13:00 Temperature 37.8 C H 36.7 C 37.1 C Heart Rate [ 94 107 H 96 Brachial] Heart Rate [ Supine] Respiratory 18 20 Rate Blood Pressure 118/71 149/73 H 130/71 [Left Brachial artery] Blood Pressure [Supine] O2 Saturation 98 99 99 04/23/19 04/23/19 13:50 15:59 Temperature 36.4 C L Heart Rate [ 93 Brachial] Heart Rate [ 86 Supine] Respiratory 16 Rate Blood Pressure 120/52 L [Left Brachial artery] Blood Pressure 129/70 [Supine] O2 Saturation 96 Oxygen O2 Source Room air I&O (Last 24 Hrs): Intake and Output Totals x24h 04/21/19 04/22/19 04/23/19 23:59 23:59 23:59 Intake Total 3590 2577 2428.333 Output Total 950 900 800 Balance 2640 1677 1628.333 General: Alert, Oriented x3, Other (wrinkled and leathery skin) HEENT: Mucous membr. moist/pink Neck: Supple, No JVD Neuro: Alert, Non Focal Cardiovascular: Regular rate, No murmurs Respiratory: No respiratory distress, Breath sounds nml Abdomen: Normal bowel sounds, Soft Extremities: No edema, Other (R BKA) - Results Results: Laboratory Results WBC 6.9 x10^3/uL (4.8-10.8) 04/23/19 04:35 RBC 3.45 10^6/uL (4.70-6.10) L 04/23/19 04:35 Hgb 9.8 g/dL (14.0-18.0) L 04/23/19 04:35 Hct 30.0 % (42.0-52.0) L 04/23/19 04:35 MCV 87.0 fL (80.0-94.0) 04/23/19 04:35 MCH 28.4 pg (27.0-31.0) 04/23/19 04:35 MCHC 32.7 g/dL (32.0-36.0) 04/23/19 04:35 RDW 16.1 % (12.0-15.0) H 04/23/19 04:35 Plt Count 128 10^3/uL (130-450) L 04/23/19 04:35 MPV 8.7 fL (7.4-11.4) 04/23/19 04:35 Neut # (Auto) 4.5 10^3/uL (1.5-6.6) 04/23/19 04:35 Lymph # (Auto) 1.2 10^3/uL (1.5-3.5) L 04/23/19 04:35 [place] # (Auto) 0.9 10^3/uL (0.0-1.0) 04/23/19 04:35 Eos # (Auto) 0.1 10^3/uL (0.0-0.7) 04/23/19 04:35 Baso # (Auto) 0.0 10^3/uL (0.0-0.1) 04/23/19 04:35 Absolute Nucleated RBC 0.00 x10^3/uL 04/23/19 04:35 Nucleated RBC % 0.0 /100WBC 04/23/19 04:35 PT 23.7 secs (9.9-12.6) H 04/22/19 05:00 INR 2.2 (0.8-1.2) H 04/22/19 05:00 Sodium 130 mmol/L (135-145) L 04/23/19 04:35 Potassium 4.0 mmol/L (3.5-5.0) 04/23/19 04:35 Chloride 102 mmol/L (101-111) 04/23/19 04:35 Carbon Dioxide 19 mmol/L (21-32) L 04/23/19 04:35 Anion Gap 9.0 (6-13) 04/23/19 04:35 BUN 14 mg/dL (6-20) 04/23/19 04:35 Creatinine 0.6 mg/dL (0.6-1.2) 04/23/19 04:35 Estimated GFR (MDRD) 132 (>89) 04/23/19 04:35 Glucose 122 mg/dL (70-100) H 04/23/19 04:35 Calcium 8.4 mg/dL (8.5-10.3) L 04/23/19 04:35 Iron 41 ug/dL (45-182) L 04/23/19 04:35 TIBC 130 ug/dL (250-450) L 04/23/19 04:35 % Saturation 31 % (20-50) 04/23/19 04:35 Transferrin 93 mg/dL (180-329) L 04/23/19 04:35 Total Bilirubin 2.0 mg/dL (0.2-1.0) H 04/21/19 09:05 AST 68 IU/L (10-42) H 04/21/19 09:05 ALT 16 IU/L (10-60) 04/21/19 09:05 Alkaline Phosphatase 526 IU/L (42-121) H 04/21/19 09:05 Total Creatine Kinase 320 IU/L (22-269) H 04/22/19 05:00 Total Protein 6.5 g/dL (6.7-8.2) L 04/21/19 09:05 Albumin 3.4 g/dL (3.2-5.5) 04/21/19 09:05 Globulin 3.1 g/dL (2.1-4.2) 04/21/19 09:05 Albumin/Globulin Ratio 1.1 (1.0-2.2) 04/21/19 09:05 Lipase 21 U/L (22-51) L 04/21/19 09:05 Prostate Specific Ag > 1210.000 ng/mL (0.000-2.000) H 04/22/19 05:00 Free PSA > 160.000 ng/mL (0.16-2.81) H 04/22/19 05:00 % Free PSA Calc Not Reportable 04/22/19 05:00 Vitamin B12 651 pg/mL (180-914) 04/23/19 04:35 Folate 7.39 ng/mL (5.90 - >24.8) 04/23/19 04:35 Urine Color YELLOW 04/21/19 12:10 Urine Clarity CLEAR (CLEAR) 04/21/19 12:10 Urine pH 5.5 PH (5.0-7.5) 04/21/19 12:10 Ur Specific [place] 1.020 (1.002-1.030) 04/21/19 12:10 Urine Protein 30 mg/dL (NEGATIVE) H 04/21/19 12:10 Urine Glucose (UA) NEGATIVE mg/dL (NEGATIVE) 04/21/19 12:10 Urine Ketones 15 mg/dL (NEGATIVE) H 04/21/19 12:10 Urine Occult Blood TRACE-INTA (NEGATIVE) 04/21/19 12:10 Urine Nitrite NEGATIVE (NEGATIVE) 04/21/19 12:10 Urine Bilirubin NEGATIVE (NEGATIVE) 04/21/19 12:10 Urine Urobilinogen 0.2 (NORMAL) E.U./dL (NORMAL) 04/21/19 12:10 Ur Leukocyte Esterase NEGATIVE (NEGATIVE) 04/21/19 12:10 Urine RBC 0-5 /HPF (0-5) 04/21/19 12:10 Urine WBC 0-3 /HPF (0-3) 04/21/19 12:10 Ur Squamous Epith Cells NONE SEEN (<= Few) 04/21/19 12:10 Amorphous Sediment Rare /LPF 04/21/19 12:10 Urine Bacteria None Seen /HPF (None Seen) 04/21/19 12:10 Ur Microscopic Review INDICATED 04/21/19 12:10 Urine Culture Comments NOT INDICATED 04/21/19 12:10 Hepatitis A IgM Ab NON-REACTIVE (NON-REACTIVE) 04/22/19 05:00 Hep Bs Antigen NON-REACTIVE (NON-REACTIVE) 04/22/19 05:00 Hep B Core IgM Ab NON-REACTIVE (NON-REACTIVE) 04/22/19 05:00 Hepatitis C Antibody NON-REACTIVE (NON-REACTIVE) 04/22/19 05:00 Hep C Ab Signal/Cutoff 0.00 (<1.00) 04/22/19 05:00 - Procedures Procedures: Procedures ENDO RECTUM POLYPECTOMY (03/04/13) ENDOSC POLYPECTOMY OF LG INTEST (03/04/13) VENOUS CATHETERIZATION NEC (10/28/13)
[2019-04-23] MEDS ORDERED: MAGNESIUM HYDROXIDE 2,400 MG/30 ML UDC PO ONE (21:01)
[2019-04-24] MEDS: SODIUM CHLORIDE 0.9% 1,000 ML IV SCH ×2 (04:04→14:41)
[2019-04-24 06:23] LABS: BASOPHILS % (AUTO) 0.3 %; EOSINOPHILS # (AUTO) 0.1 10^3/uL (0.0-0.7); EOSINOPHILS % (AUTO) 2.1 %; HGB - HEMOGLOBIN 9.2 g/dL (14.0-18.0); LYMPHOCYTES % (AUTO) 17.4 %; MEAN CORPUSCULAR HEMOGLOBIN 29.8 pg (27.0-31.0); MEAN CORPUSCULAR HGB CONC 31.8 g/dL (32.0-36.0); MEAN CORPUSCULAR VOLUME 93.5 fL (80.0-94.0); MEAN PLATELET VOLUME 10.3 fL (7.4-11.4); MONOCYTES # (AUTO) 0.6 10^3/uL (0.0-1.0); MONOCYTES % (AUTO) 10.6 %; NEUTROPHILS # (AUTO) 3.7 10^3/uL (1.5-6.6); NEUTROPHILS % (AUTO) 64.7 %; PLT - PLATELET COUNT 79 10^3/uL (130-450); RED BLOOD COUNT 3.09 10^6/uL (4.70-6.10); RED CELL DISTRIBUTION WIDTH 16.7 % (12.0-15.0); WHITE BLOOD COUNT 5.8 x10^3/uL (4.8-10.8)
[2019-04-24] MEDS: PANTOPRAZOLE 40 MG VIAL IVP SCH (06:33)
[2019-04-24] MEDS: SODIUM CHLORIDE FLUSH 0.9% 10 ML SYRINGE IVP SCH ×2 (06:33→17:55)
[2019-04-24 06:35] LABS: INR 1.5 (0.8-1.2); PT - PROTHROMBIN TIME 16.8 secs (9.9-12.6)
[2019-04-24 06:42] LABS: ALBUMIN 2.3 g/dL (3.2-5.5); BILIRUBIN,DIRECT 0.3 mg/dL (0.1-0.5); BILIRUBIN,TOTAL 0.9 mg/dL (0.2-1.0); CALCIUM 8.2 mg/dL (8.5-10.3); CREATININE 0.7 mg/dL (0.6-1.2); TOTAL PROTEIN 5.2 g/dL (6.7-8.2)
[2019-04-24] MEDS: FERROUS SULFATE 300 MG/5 ML UDC PO SCH (07:55)
[2019-04-24] MEDS: METOPROLOL SUCCINATE 25 MG TABLET PO SCH (08:34)
[2019-04-24] MEDS: DOCUSATE SODIUM 250 MG CAPSULE PO SCH (08:34)
[2019-04-24] MEDS: TAMSULOSIN 0.4 MG CAPSULE PO SCH (08:34)
[2019-04-24] MEDS: SENNA 8.6 MG TABLET PO SCH (08:34)
[2019-04-24] MEDS: polyethylene glycoL 3350 17 GM PACKET PO SCH (08:36)
--- NOTE | 2019-04-24 11:30 | ANESTHESIA ---
Pre-Anesthesia VS, & Labs - Diagnosis dysphagia - Procedure EGD Vital Signs: Temp Pulse Resp BP Pulse Ox 36.8 C 92 18 115/69 99 04/24/19 08:00 04/24/19 08:00 04/24/19 08:00 04/24/19 08:00 04/24/19 08:00 Height 5 ft 8 in Weight (kg) 69.5 kg Body Mass Index 23.3 - NPO >8 hours - Lab Results Current Lab Results: Laboratory Tests 04/24/19 05:25: PT 16.8 H, INR 1.5 H 04/24/19 05:25: Sodium 130 L, Potassium 3.8, Chloride 101, Carbon Dioxide 19 L, Anion Gap 10.0, BUN 12, Creatinine 0.7, Estimated GFR (MDRD) 110, Glucose 115 H, Calcium 8.2 L, Total Bilirubin 0.9, Direct Bilirubin 0.3, AST 23, ALT 12, Alkaline Phosphatase 323 H, Total Creatine Kinase 93, Total Protein 5.2 L, Albumin 2.3 L, Globulin 2.9 04/24/19 05:25: WBC 5.8, RBC 3.09 L, Hgb 9.2 L, Hct 28.9 L, MCV 93.5, MCH 29.8, MCHC 31.8 L, RDW 16.7 H, Plt Count 79 L, MPV 10.3, Neut # (Auto) 3.7, Lymph # (Auto) 1.0 L, [place] # (Auto) 0.6, Eos # (Auto) 0.1, Baso # (Auto) 0.0, Absolute Nucleated RBC 0.00, Nucleated RBC % 0.0 04/23/19 04:35: Total Creatine Kinase 139 04/23/19 04:35: Vitamin B12 651, Folate 7.39 04/23/19 04:35: Sodium 130 L, Potassium 4.0, Chloride 102, Carbon Dioxide 19 L, Anion Gap 9.0, BUN 14, Creatinine 0.6, Estimated GFR (MDRD) 132, Glucose 122 H, Calcium 8.4 L, Iron 41 L, TIBC 130 L, % Saturation 31, Transferrin 93 L 04/23/19 04:35: WBC 6.9, RBC 3.45 L, Hgb 9.8 L, Hct 30.0 L, MCV 87.0, MCH 28.4, MCHC 32.7, RDW 16.1 H, Plt Count 128 L, MPV 8.7, Neut # (Auto) 4.5, Lymph # (Auto) 1.2 L, [place] # (Auto) 0.9, Eos # (Auto) 0.1, Baso # (Auto) 0.0, Absolute Nucleated RBC 0.00, Nucleated RBC % 0.0 04/22/19 05:00: PT 23.7 H, INR 2.2 H 04/22/19 05:00: Prostate Specific Ag > 1210.000 H, Free PSA > 160.000 H, % Free PSA Calc Not Reportable 04/22/19 05:00: Sodium 123 L, Potassium 4.1, Chloride 95 L, Carbon Dioxide 18 L, Anion Gap 10.0, BUN 21 H, Creatinine 0.7, Estimated GFR (MDRD) 110, Glucose 115 H, Calcium 7.9 L, Total Creatine Kinase 320 H 04/22/19 05:00: WBC 6.3, RBC 3.44 L, Hgb 9.5 L, Hct 29.4 L, MCV 85.5, MCH 27.6, MCHC 32.3, RDW 15.8 H, Plt Count 121 L, MPV 8.8, Neut # (Auto) 4.4, Lymph # (Auto) 0.9 L, [place] # (Auto) 0.8, Eos # (Auto) 0.1, Baso # (Auto) 0.0, Absolute Nucleated RBC 0.00, Nucleated RBC % 0.0 04/21/19 09:05: Total Creatine Kinase 674 H 04/21/19 09:05: PT 45.0 H, INR 4.3 H 04/21/19 09:05: Sodium 121 L, Potassium 4.5, Chloride 85 L, Carbon Dioxide 19 L, Anion Gap 17.0 H, BUN 32 H, Creatinine 0.8, Estimated GFR (MDRD) 94, Glucose 100, Calcium 8.7, Total Bilirubin 2.0 H, AST 68 H, ALT 16, Alkaline Phosphatase 526 H, Total Protein 6.5 L, Albumin 3.4, Globulin 3.1, Albumin/Globulin Ratio 1.1, Lipase 21 L 04/21/19 09:05: WBC 8.6, RBC 3.94 L, Hgb 11.5 L, Hct 33.9 L, MCV 86.0, MCH 29.2, MCHC 33.9, RDW 15.4 H, Plt Count 125 L, MPV 8.8, Neut # (Auto) 6.3, Lymph # (Auto) 1.0 L, [place] # (Auto) 1.1 H, Eos # (Auto) 0.0, Baso # (Auto) 0.0, Absolute Nucleated RBC 0.00, Nucleated RBC % 0.0 Lab results reviewed: Yes Fish Bones: 04/24/19 05:25 04/24/19 05:25 Home Medications and Allergies Home Medications: Ambulatory Orders Furosemide 20 mg PO DAILY 04/21/19 Lisinopril [Zestril] 10 mg PO DAILY 04/21/19 Metoprolol Succinate 12.5 - 25 mg PO DAILY 04/21/19 Warfarin [Coumadin] 2.5 mg PO SUMOTUTHFR 04/21/19 Warfarin [Coumadin] 5 mg PO WESA 04/21/19 Active Medications Acetaminophen (Tylenol) 650 mg PO Q4HR PRN PRN Reason: Pain 1 to 4 Last Admin: 04/23/19 17:39 Dose: 650 mg Docusate Sodium (Colace 250mg Capsule) 250 - 500 mg PO DAILY [facility] Last Admin: 04/24/19 08:34 Dose: 250 mg Ferrous Sulfate (Feosol Liquid) 300 mg PO DAILYWM [facility] Last Admin: 04/24/19 07:55 Dose: 300 mg Hydromorphone HCl (Dilaudid Inj Carp) 1 mg IVP Q3HR PRN PRN Reason: PAIN Last Admin: 04/23/19 23:45 Dose: 1 mg Sodium Chloride (Normal Saline 0.9%) 1,000 mls @ 100 mls/hr IV .Q10H [facility] Last Admin: 04/24/19 04:04 Dose: 100 mls/hr Metoprolol Succinate (Toprol Xl) 25 mg PO DAILY [facility] Last Admin: 04/24/19 08:34 Dose: 25 mg Mineral Oil (Cavilon) 1 applic TOP PRN PRN PRN Reason: Skin Care Multi-Ingredient Mouthwash/Gargle () 30 ml PO Q8H PRN PRN Reason: INDIGESTION Last Admin: 04/23/19 00:40 Dose: 30 ml Ondansetron HCl (Zofran Inj) 4 mg IVP Q6HR PRN PRN Reason: Nausea / Vomiting Last Admin: 04/23/19 23:45 Dose: 4 mg Ondansetron HCl (Zofran Odt) 4 mg TL Q6HR PRN PRN Reason: Nausea / Vomiting Oxycodone HCl (Roxicodone) 5 mg PO Q4HR PRN PRN Reason: Pain 5 to 7 Last Admin: 04/23/19 13:25 Dose: 5 mg Pantoprazole Sodium (Protonix) 40 mg IVP QDAC [facility] Last Admin: 04/24/19 06:33 Dose: 40 mg Polyethylene Glycol (Miralax) 17 gm PO DAILY [facility] Last Admin: 04/24/19 08:36 Dose: Not Given Senna (Senokot) 8.6 - 17.2 mg PO DAILY [facility] Last Admin: 04/24/19 08:34 Dose: 17.2 mg Sodium Chloride (Normal Saline Flush 0.9%) 10 ml IVP PRN PRN PRN Reason: NEEDED PER PROVIDER ORDERS Last Admin: 04/23/19 13:25 Dose: 10 ml Sodium Chloride (Normal Saline Flush 0.9%) 10 ml IVP 0100,0900,1700 [facility] Last Admin: 04/24/19 06:33 Dose: 10 ml Tamsulosin HCl (Flomax) 0.4 mg PO DAILY [facility] Last Admin: 04/24/19 08:34 Dose: 0.4 mg Warfarin Sodium (Coumadin) 2.5 mg PO [facility] Warfarin Sodium (Coumadin) 5 mg PO [facility] Last Admin: 04/23/19 14:45 Dose: 5 mg Furosemide 20 mg PO DAILY 04/21/19 Lisinopril [Zestril] 10 mg PO DAILY 04/21/19 Metoprolol Succinate 12.5 - 25 mg PO DAILY 04/21/19 Warfarin [Coumadin] 2.5 mg PO SUMOTUTHFR 04/21/19 Warfarin [Coumadin] 5 mg PO WESA 04/21/19 Allergies/Adverse Reactions: Allergies Allergy/AdvReac Type Severity Reaction Status Date / Time [id number] Reductase AdvReac Dizziness Verified 04/21/19 08:51 Inhibitor Anes History & Medical History - Anesthetic History Anesthesia Complications: reports: No previous complications Family history of Anesthesia Complications: Denies Family history of Malignant Hyperthermia: Denies - Medical History Cardiovascular: reports: Hypertension, High cholesterol, Coronary artery disease, Peripheral Vascular Disease, MD, Atrial fibrillation Pulmonary: reports: Pneumonia (Treated as pneumonia when he presented with syncope and fevers and elevated white cell count in October 2013. In reading the discharge summary there was some doubt on the diagnosis of pneumonia.) Gastrointestinal: reports: Colon polyps (A bout of loose stools resulted in a colonoscopy February 2013. 7 polyps and diverticulosis were found on that scope. Pathology showed tubular adenomas or hyperplastic changes.) Urinary: reports: None Neuro: reports: CVA (left sided weakness) Musculoskeletal: reports: Gout, Other Endocrine/Autoimmune: reports: None Blood Disorders: reports: None Skin: reports: Psoriasis Smoking Status: Former smoker Other Past Medical History: Eosinophilia on blood work in October 2013 when he was admitted for pneumonia - Surgical History Eyes Ears Nose Throat (EENT): Tracheostomy Cardiothoracic: Coronary stent Orthopedic: Other Exam General: Alert, Oriented x3, Cooperative Dental: Loose/Frag Mouth Openin Fingerbreadth Neck Mobility: Normal Mallampati classification: III Thyromental Distance: 4-6 cm Respiratory: Lungs clear, Normal breath sounds, No respiratory distress, Decreased breath sounds Cardiovascular: Regular rate Neurological: Normal speech Mental/Cognitive Status: Alert/Oriented X3, Normal for patient Plan Anesthesia Type: MAC Consent for Procedure(s) Verified and Reviewed: Yes Code Status: Attempt Resuscitation ASA classification: 3-Severe systemic disease Is this case an emergency?: No
[2019-04-24] MEDS ORDERED: LIDO GARGLE 30 ML BOTTLE ONE (11:46)
[2019-04-24] MEDS ORDERED: ESMOLOL 100 MG/10 ML VIAL IVP ONE (12:46)
[2019-04-24] MEDS ORDERED: MIDAZOLAM 2 MG/2 ML VIAL IVP ONE (12:46)
[2019-04-24] MEDS ORDERED: KETAMINE 500 MG/10 ML VIAL IVP ONE (12:46)
--- NOTE | 2019-04-24 12:51 | CONSULTATION NOTE ---
Referring Provider Name of Referring Provider:: Bry LI Consult Date: 04/24/19 Chief Complaint - Chief Complaint Chief Complaint: dysphagia History of Present Illness - Admitted From Admitted From:: ED - History Obtained From Records Reviewed: Provider's notes History obtained from: providers and nurses, minimal info from the patient due to communcation dif Exam Limitations: Patient weakness - History of Present Illness HPI Comment/Other: Mr. Mejia is an unfortunate gentleman of 73 years who was recently admitted to the hospitalist with dehydration, weakness, and dysphagia. He has a history of PVD and had a right BKA in 2019 for vascular insufficiency with osteomyelitis. He has a history of atrial fibrillation and coronary disease as well. We have been asked to see him regarding dysphagia. The patient was evaluated with barium esophagram yesterday with speech pathology revealing no evidence of aspiration. The portion of the esophagus that was visualized was normal. History - Past Medical History Cardiovascular: reports: Hypertension, High cholesterol, Coronary artery disease, Peripheral Vascular Disease, [place], Atrial fibrillation Respiratory: reports: Pneumonia (Treated as pneumonia when he presented with syncope and fevers and elevated white cell count in October 2013. In reading the discharge summary there was some doubt on the diagnosis of pneumonia.) Neuro: reports: CVA (left sided weakness) Endocrine/Autoimmune: reports: None GI: reports: Colon polyps (A bout of loose stools resulted in a colonoscopy February 2013. 7 polyps and diverticulosis were found on that scope. Pathology showed tubular adenomas or hyperplastic changes.) : reports: None HEENT: reports: Chronic hearing loss Psych: reports: None Musculoskeletal: reports: Gout, Other Derm: reports: Psoriasis MRSA Hx?: No Other Past Medical History: Eosinophilia on blood work in October 2013 when he was admitted for pneumonia - Past Surgical History Ortho: reports: Amputation (left BKA), Other Cardiovascular: reports: Coronary stent HEENT: reports: Tracheostomy - Family & Social History Family History Comment/Other: of complications of a stroke in her 80s. Dad of brain aneurysm at the age of 60. 2 brothers and a sister. One brother is incredibly active and still rollerblades all around [place]. One brother lives in [place]. Stop smoking and got plump. His sister is healthy and okay but living in a long term because of her . She lives there to keep him company. Of his 3 children's they are healthy Living arrangement: At home Living Situation: Alone Social History Notes: Lives in senior subsidized housing here at [facility] in [place]. Moved there in January after his amputation. Lives alone. from his second since 1989. Main support system is Lele Neff who is his power of staff attorney. He started smoking at the age of 9 and smoked 1-1/2 packs/day and sometimes up to 2 packs/day until the year 2009. He used to be a heavy drinker where he would admittedly drink a sixpack a day. Then with time he get down to 3 a day. Then 1 a day. Now he just does not have a taste for it at all and he has not had anything to drink in over a month and a half. His children live in [place]. He talks to him on the phone off and on. The person is closest to in his life and he loves them fiercely is his little brother Chencho who lives in [place]. - Substance History Use: Uses substance without health or social issues: NONE Abuse: Recurrent use of substance despite neg consequences: NONE Dependence: Experiences withdrawal or developed tolerances: NONE - POLST Patient has POLST: No POLST Status: DNR (Not only does not want to be resuscitated he is adamant that he never wants to receive blood transfusions. He is not a Jehovah just has deep philosophical beliefs about getting someone else's blood.) Meds/Allgy - Home Medications Home Medications: Ambulatory Orders Medication Instructions Recorded Confirmed Furosemide 20 mg PO DAILY 04/21/19 04/21/19 Lisinopril [Zestril] 10 mg PO DAILY 04/21/19 04/21/19 Metoprolol Succinate 12.5 - 25 mg PO DAILY 04/21/19 04/21/19 Warfarin [Coumadin] 2.5 mg PO SUMOTUTHFR 04/21/19 04/21/19 Warfarin [Coumadin] 5 mg PO WESA 04/21/19 04/21/19 - Allergies Allergies/Adverse Reactions: Allergies Allergy/AdvReac Type Severity Reaction Status Date / Time Yopgwvf-Pmz-Cle Reductase AdvReac Dizziness Verified 04/21/19 08:51 Inhibitor Review of Systems - Constitutional Constitutional: reports: Fatigue, Weakness, Poor appetite - Gastrointestinal Gastrointestinal: reports: Other (Reports difficulty with swallowing food. Feels he swallows liquids ok.). denies: Abdominal pain, Abdominal distention, Diarrhea, Rectal bleeding, Vomiting, Coffee grounds emesis, Reflux/heartburn - All Other Systems All Other Systems: reports: Other (Review of systems was limited and difficult to obtain due to patient fatigue and challenging communication) Exam - Vital Signs Reviewed Vital Signs: Yes Vital Signs: Vital Signs x48h Temp Pulse Pulse Resp BP BP Pulse Ox 04/24/19 11:17 103 H 128/77 04/24/19 08:00 36.8 C 92 18 115/69 99 - Physical Exam General Appearance: positive: No acute distress, Other (Appears older than stated age) Eyes Bilateral: positive: Normal inspection ENT: positive: ENT inspection nml Abdomen: positive: Non-tender, Nml bowel sounds, No distention. negative: Guarding, Rebound Skin: positive: Warm, Dry Conclusion and Plan - Lab Results Laboratory Results 04/24/19 05:25: PT 16.8 H, INR 1.5 H 04/24/19 05:25: Sodium 130 L, Potassium 3.8, Chloride 101, Carbon Dioxide 19 L, Anion Gap 10.0, BUN 12, Creatinine 0.7, Estimated GFR (MDRD) 110, Glucose 115 H, Calcium 8.2 L, Total Bilirubin 0.9, Direct Bilirubin 0.3, AST 23, ALT 12, Alkaline Phosphatase 323 H, Total Creatine Kinase 93, Total Protein 5.2 L, Albumin 2.3 L, Globulin 2.9 04/24/19 05:25: WBC 5.8, RBC 3.09 L, Hgb 9.2 L, Hct 28.9 L, MCV 93.5, MCH 29.8, MCHC 31.8 L, RDW 16.7 H, Plt Count 79 L, MPV 10.3, Neut # (Auto) 3.7, Lymph # (Auto) 1.0 L, Perry # (Auto) 0.6, Eos # (Auto) 0.1, Baso # (Auto) 0.0, Absolute Nucleated RBC 0.00, Nucleated RBC % 0.0 04/23/19 04:35: Total Creatine Kinase 139 04/23/19 04:35: Vitamin B12 651, Folate 7.39 04/23/19 04:35: Sodium 130 L, Potassium 4.0, Chloride 102, Carbon Dioxide 19 L, Anion Gap 9.0, BUN 14, Creatinine 0.6, Estimated GFR (MDRD) 132, Glucose 122 H, Calcium 8.4 L, Iron 41 L, TIBC 130 L, % Saturation 31, Transferrin 93 L 04/23/19 04:35: WBC 6.9, RBC 3.45 L, Hgb 9.8 L, Hct 30.0 L, MCV 87.0, MCH 28.4, MCHC 32.7, RDW 16.1 H, Plt Count 128 L, MPV 8.7, Neut # (Auto) 4.5, Lymph # (Auto) 1.2 L, Perry # (Auto) 0.9, Eos # (Auto) 0.1, Baso # (Auto) 0.0, Absolute Nucleated RBC 0.00, Nucleated RBC % 0.0 04/22/19 05:00: Hepatitis A IgM Ab NON-REACTIVE, Hep Bs Antigen NON-REACTIVE, Hep B Core IgM Ab NON-REACTIVE, Hepatitis C Antibody NON-REACTIVE, Hep C Ab Signal/Cutoff 0.00 - Diagnostic Imaging Results Diagnostic Imaging Results: positive: Final report reviewed - Diagnosis Diagnosis: Dysphagia to solid foods - Plan Plan: We discussed the risks and benefits of endoscopy with the patient and he agreed to the procedure. Unfortunately, he developed rapid ventricular response with a heart rate of 181 just after receiving sedation. This was associated with hypotension and hypoxia. The procedure was cancelled and the patient was returned to the ICU in Dr. Griffiths for further evaluation and management. We are happy to complete endoscopy when the Hospitalist service feels he is ready and stable.
[2019-04-24] MEDS ORDERED: SODIUM CHLORIDE 0.9% 500 ML IV ONE (13:06)
--- NOTE | 2019-04-24 13:25 | PROVIDER PROGRESS NOTE ---
Assessment/Plan - Problem List (1) Atrial fibrillation with RVR Assessment/Plan: Patient went to have EGD today and received Versed and Ketamine and went to A. fib with RVR at a rate of 190, and the procedure was canceled. Patient will be moved to the ICU. Most likely this is volume depletion since he has had very poor p.o. intake for 2 weeks, slow hydration here for his rhabdomyolysis and mostly has been on clear liquids throughout this admission because of the odynophagia. Saline fluid push. Obtain EKG. Check chest x-ray. Cycle troponins. Dig if needed for rate control if blood pressure remains low Obtain Echo for LVEF and volume status assessment (2) Urinary retention Assessment/Plan: For the last 2 days he has had 300 to 600 cc of residual urine scanned in his bladder. A straight cath was ordered prn. Last night a Tam had to be inserted. Flomax has been started p.o., this also could be adding to his hypotension. The prostate is suspected to be up problematic given the high PSA (3) Hyponatremia Assessment/Plan: Improving. Follow BMP daily (4) Odynophagia Assessment/Plan: EGD requested to evaluate the entire esophagus, suspicion is for esophageal obstruction which is below the level that was seen during the fluoroscopy barium swallow. The EGD could not be done today because of the A. fib with RVR. Will postpone but still plan the EGD. (5) Severe protein-calorie malnutrition Assessment/Plan: Patient admitted to poor p.o. intake of both fluids and food for the past [address] him and we have documented his severe protein-calorie malnutrition. He was unable to participate with PT yesterday because of weakness Will offer high-protein, high calorie snacks like Ensure (6) Bony metastasis Assessment/Plan: This was newly diagnosed at admission. The patient knows he needs oncology evaluation and management after DCh (7) Elevated PSA Assessment/Plan: The prostate nay be the primary malignancy (8) Anemia Qualifiers: Anemia type: iron deficiency Assessment/Plan: Liquid iron replacement was started daily, yesterday (9) Generalized muscle weakness Assessment/Plan: PT was ordered to start several days ago, he is been complaining of marked weakness and physical therapy noted he probably was not independent at home, as he reported, since here he penny needed max assist and seri lift. He will very likely need PT at an SNF for upper arm and trunk rehab (10) PVD (peripheral vascular disease) Assessment/Plan: Right leg PVD led to osteomyelitis which led to BKA in December 2018 (11) Hx of coronary artery disease Assessment/Plan: As per Hx (12) Hx of right BKA Assessment/Plan: As above (13) History of CVA (cerebrovascular accident) Assessment/Plan: No focal residual deficits were known of, Since these were multiple lacunar infarcts (14) Dehydration Assessment/Plan: He presented with very dry mucosa and severe poor oral intake. He has been getting saline and 100 cc an hour since admission. His p.o. intake is been poor with only clear liquids while his upper GI evaluation was underway. I suspect he is still volume depleted based on today's tachycardia and hypotension that occurred when he started to get Versed plus Ketamine (15) Rhabdomyolysis Qualifiers: Rhabdomyolysis type: non-traumatic Qualified Code(s): M62.82 - Rhabdomyoly sis Assessment/Plan: Resolved - Current Meds Current Meds: Current Medications Generic Name Dose Route Start Last Admin Trade Name Freq PRN Reason Stop Dose Admin Acetaminophen 650 mg 04/21/19 12:00 04/23/19 17:39 Tylenol PO 650 mg Q4HR PRN Administration Pain 1 to 4 Docusate Sodium 250 - 500 mg 04/22/19 09:00 04/24/19 08:34 Colace 250mg Capsule PO 250 mg DAILY CHARLENE Administration Ferrous Sulfate 300 mg 04/24/19 08:00 04/24/19 07:55 Feosol Liquid PO 300 mg DAILYWM CHARLENE Administration Hydromorphone HCl 1 mg 04/22/19 23:43 04/23/19 23:45 Dilaudid Inj Carp IVP 1 mg Q3HR PRN Administration PAIN Sodium Chloride 1,000 mls @ 100 mls/hr 04/21/19 12:00 04/24/19 04:04 Normal Saline 0.9% IV 100 mls/hr .Q10H CHARLENE Administration Metoprolol Succinate 25 mg 04/23/19 09:00 04/24/19 08:34 Toprol Xl PO 25 mg DAILY CHARLENE Administration Multi-Ingredient Mouthwash/Gargle 30 ml 04/21/19 18:14 04/23/19 00:40 PO 30 ml Q8H PRN Administration INDIGESTION Ondansetron HCl 4 mg 04/21/19 12:00 04/23/19 23:45 Zofran Inj IVP 4 mg Q6HR PRN Administration Nausea / Vomiting Pantoprazole Sodium 40 mg 04/21/19 19:00 04/24/19 06:33 Protonix IVP 40 mg QDAC CHARLENE Administration Polyethylene Glycol 17 gm 04/24/19 09:00 04/24/19 08:36 Miralax PO Not Given DAILY CHARLENE Senna 8.6 - 17.2 mg 04/22/19 09:00 04/24/19 08:34 Senokot PO 17.2 mg DAILY CHARLENE Administration Sodium Chloride 10 ml 04/21/19 12:00 04/23/19 13:25 Normal Saline Flush 0.9% IVP 10 ml PRN PRN Administration NEEDED PER PROVIDER ORDERS Sodium Chloride 10 ml 04/21/19 17:00 04/24/19 06:33 Normal Saline Flush 0.9% IVP 10 ml 0100,0900,1700 CHARLENE Administration Tamsulosin HCl 0.4 mg 04/23/19 12:00 04/24/19 08:34 Flomax PO 0.4 mg DAILY CHARLENE Administration Warfarin Sodium 5 mg 04/23/19 14:00 04/23/19 14:45 Coumadin PO 5 mg WESA CHARLENE Administration - Lab Result Fish Bone Diagrams: 04/24/19 05:25 04/24/19 05:25 - EKG Results EKG Interpreted Independently: Yes EKG Comparison: Changed from prior EKG EKG Findings: A. fib, rate 145, vertical axis, low voltage in precordium, poor R wave progression, [address] depressions in V5 and V6 which are deeper since 04/21/2019 EKG, and rapid rate is new. - Additional Planning My Orders: My Active Orders 04/23/19 14:00 Warfarin [Coumadin] 5 mg PO WESA 04/23/19 15:29 Straight Catheter Insertion [RC] PRN 04/24/19 08:00 Ferrous Sulfate Liquid [Feosol Liquid] 300 mg PO DAILYWM 04/24/19 09:00 polyethylene glycoL 3350 [Miralax] 17 gm PO DAILY 04/24/19 10:30 DIET [NPO] [DIET] 04/24/19 13:03 Transfer [Admit \\ Transfer \\ Status] [RC] .ONCE 04/24/19 13:04 EKG - Electrocardiogram [RC] .ONCE Echo Transthoracic Complete [ECHO] Routine 04/24/19 13:06 Sodium Chloride 0.9% [Normal Saline 0.9%] 500 ml IV ONCE 04/24/19 13:11 Chest 1 View X-Ray [XR] Stat 04/24/19 14:00 Warfarin [Coumadin] 2.5 mg PO SUMOTUTHFR 04/25/19 05:00 PT WITH INR [COAG] DAILYLAB 04/26/19 05:00 PT WITH INR [COAG] DAILYLAB Subjective - Subjective Patient Reports: Other (Before taken for EGD, he was weak and could not "see the line" to sign consent. After EGD, got sedation and is napping still.) Objective Vital Signs: Vital Signs - 24 hr 04/23/19 04/23/19 04/24/19 13:50 15:59 00:00 Temperature 36.4 C L 36.8 C Heart Rate [ 93 94 Brachial] Heart Rate [ 86 Supine] Respiratory 16 18 Rate Blood Pressure 120/52 L 115/73 [Left Brachial artery] Blood Pressure 129/70 [Supine] O2 Saturation 96 99 04/24/19 04/24/19 08:00 11:17 Temperature 36.8 C Heart Rate [ 92 Brachial] Heart Rate [ 103 H Supine] Respiratory 18 Rate Blood Pressure 115/69 [Left Brachial artery] Blood Pressure 128/77 [Supine] O2 Saturation 99 Oxygen O2 Source Room air I&O (Last 24 Hrs): Intake and Output Totals x24h 04/22/19 04/23/19 04/24/19 23:59 23:59 23:59 Intake Total 2577 2628.333 1126.667 Output Total 900 800 450 Balance 1677 1828.333 676.667 General: Other (Lethargic) HEENT: Mucous membr. moist/pink, Other (poor dentition) Neck: Supple Neuro: Other (Generalized weakness, but was oriented before getting conscious sedation) Cardiovascular: No murmurs, Other (Irreg, tachy) Respiratory: No respiratory distress, Breath sounds nml, Other (Increased AP diameter) Abdomen: Soft, No tenderness Extremities: No edema - Results Results: Laboratory Results WBC 5.8 x10^3/uL (4.8-10.8) 04/24/19 05:25 RBC 3.09 10^6/uL (4.70-6.10) L 04/24/19 05:25 Hgb 9.2 g/dL (14.0-18.0) L 04/24/19 05:25 Hct 28.9 % (42.0-52.0) L 04/24/19 05:25 MCV 93.5 fL (80.0-94.0) 04/24/19 05:25 MCH 29.8 pg (27.0-31.0) 04/24/19 05:25 MCHC 31.8 g/dL (32.0-36.0) L 04/24/19 05:25 RDW 16.7 % (12.0-15.0) H 04/24/19 05:25 Plt Count 79 10^3/uL (130-450) L 04/24/19 05:25 MPV 10.3 fL (7.4-11.4) 04/24/19 05:25 Neut # (Auto) 3.7 10^3/uL (1.5-6.6) 04/24/19 05:25 Lymph # (Auto) 1.0 10^3/uL (1.5-3.5) L 04/24/19 05:25 [place] # (Auto) 0.6 10^3/uL (0.0-1.0) 04/24/19 05:25 Eos # (Auto) 0.1 10^3/uL (0.0-0.7) 04/24/19 05:25 Baso # (Auto) 0.0 10^3/uL (0.0-0.1) 04/24/19 05:25 Absolute Nucleated RBC 0.00 x10^3/uL 04/24/19 05:25 Nucleated RBC % 0.0 /100WBC 04/24/19 05:25 PT 16.8 secs (9.9-12.6) H 04/24/19 05:25 INR 1.5 (0.8-1.2) H 04/24/19 05:25 Sodium 130 mmol/L (135-145) L 04/24/19 05:25 Potassium 3.8 mmol/L (3.5-5.0) 04/24/19 05:25 Chloride 101 mmol/L (101-111) 04/24/19 05:25 Carbon Dioxide 19 mmol/L (21-32) L 04/24/19 05:25 Anion Gap 10.0 (6-13) 04/24/19 05:25 BUN 12 mg/dL (6-20) 04/24/19 05:25 Creatinine 0.7 mg/dL (0.6-1.2) 04/24/19 05:25 Estimated GFR (MDRD) 110 (>89) 04/24/19 05:25 Glucose 115 mg/dL (70-100) H 04/24/19 05:25 Calcium 8.2 mg/dL (8.5-10.3) L 04/24/19 05:25 Iron 41 ug/dL (45-182) L 04/23/19 04:35 TIBC 130 ug/dL (250-450) L 04/23/19 04:35 % Saturation 31 % (20-50) 04/23/19 04:35 Transferrin 93 mg/dL (180-329) L 04/23/19 04:35 Total Bilirubin 0.9 mg/dL (0.2-1.0) 04/24/19 05:25 Direct Bilirubin 0.3 mg/dL (0.1-0.5) 04/24/19 05:25 AST 23 IU/L (10-42) 04/24/19 05:25 ALT 12 IU/L (10-60) 04/24/19 05:25 Alkaline Phosphatase 323 IU/L (42-121) H 04/24/19 05:25 Total Creatine Kinase 93 IU/L (22-269) 04/24/19 05:25 Total Protein 5.2 g/dL (6.7-8.2) L 04/24/19 05:25 Albumin 2.3 g/dL (3.2-5.5) L 04/24/19 05:25 Globulin 2.9 g/dL (2.1-4.2) 04/24/19 05:25 Albumin/Globulin Ratio 1.1 (1.0-2.2) 04/21/19 09:05 Lipase 21 U/L (22-51) L 04/21/19 09:05 Prostate Specific Ag > 1210.000 ng/mL (0.000-2.000) H 04/22/19 05:00 Free PSA > 160.000 ng/mL (0.16-2.81) H 04/22/19 05:00 % Free PSA Calc Not Reportable 04/22/19 05:00 Vitamin B12 651 pg/mL (180-914) 04/23/19 04:35 Folate 7.39 ng/mL (5.90 - >24.8) 04/23/19 04:35 Urine Color YELLOW 04/21/19 12:10 Urine Clarity CLEAR (CLEAR) 04/21/19 12:10 Urine pH 5.5 PH (5.0-7.5) 04/21/19 12:10 Ur Specific [place] 1.020 (1.002-1.030) 04/21/19 12:10 Urine Protein 30 mg/dL (NEGATIVE) H 04/21/19 12:10 Urine Glucose (UA) NEGATIVE mg/dL (NEGATIVE) 04/21/19 12:10 Urine Ketones 15 mg/dL (NEGATIVE) H 04/21/19 12:10 Urine Occult Blood TRACE-INTA (NEGATIVE) 04/21/19 12:10 Urine Nitrite NEGATIVE (NEGATIVE) 04/21/19 12:10 Urine Bilirubin NEGATIVE (NEGATIVE) 04/21/19 12:10 Urine Urobilinogen 0.2 (NORMAL) E.U./dL (NORMAL) 04/21/19 12:10 Ur Leukocyte Esterase NEGATIVE (NEGATIVE) 04/21/19 12:10 Urine RBC 0-5 /HPF (0-5) 04/21/19 12:10 Urine WBC 0-3 /HPF (0-3) 04/21/19 12:10 Ur Squamous Epith Cells NONE SEEN (<= Few) 04/21/19 12:10 Amorphous Sediment Rare /LPF 04/21/19 12:10 Urine Bacteria None Seen /HPF (None Seen) 04/21/19 12:10 Ur Microscopic Review INDICATED 04/21/19 12:10 Urine Culture Comments NOT INDICATED 04/21/19 12:10 Hepatitis A IgM Ab NON-REACTIVE (NON-REACTIVE) 04/22/19 05:00 Hep Bs Antigen NON-REACTIVE (NON-REACTIVE) 04/22/19 05:00 Hep B Core IgM Ab NON-REACTIVE (NON-REACTIVE) 04/22/19 05:00 Hepatitis C Antibody NON-REACTIVE (NON-REACTIVE) 04/22/19 05:00 Hep C Ab Signal/Cutoff 0.00 (<1.00) 04/22/19 05:00 - Procedures Procedures: Procedures ENDO RECTUM POLYPECTOMY (03/04/13) ENDOSC POLYPECTOMY OF LG INTEST (03/04/13) VENOUS CATHETERIZATION NEC (10/28/13)
--- NOTE | 2019-04-24 13:58 | XRAY Report ---
Reason: Hypotension Procedure Date: 04/24/2019 Accession Number: [id number] / [id number] Procedure: XR - Chest 1 View X-Ray CPT Code: 00741 Final Report FULL RESULT: EXAM: CHEST RADIOGRAPHY EXAM DATE: 04/24/2019 01:30 PM. CLINICAL HISTORY: Hypotension. COMPARISON: CHEST 2 VIEW 05/23/2017 2:54 PM. TECHNIQUE: 1 view. FINDINGS: Lungs/Pleura: Diffuse hazy prominence of lung markings. Probable small pleural effusions. No consolidation or pneumothorax. Mediastinum: Moderate cardiomegaly, increased since previous study. Diffuse vascular fullness. Other: Degenerative changes. Sclerotic changes in the bones compatible with metastatic disease. IMPRESSION: 1. Congestive failure. 2. Bony metastatic disease and other chronic findings. RADIA
[2019-04-24] MEDS ORDERED: WARFARIN 2.5 MG TABLET PO SCH (14:00)
[2019-04-24] MEDS ORDERED: SODIUM CHLORIDE 0.9% 500 ML ONE (14:03)
[2019-04-24] MEDS: diltiaZEM INJ 125 MG in SODIUM CHLORIDE 0.9% 100ML 100 ML IV SCH (14:41)
[2019-04-24 22:51] LABS: ALBUMIN 2.5 g/dL (3.8-4.8); ALPHA 1 GLOBULIN 0.7 g/dL (0.2-0.3); ALPHA 2 GLOBULIN 0.8 g/dL (0.5-0.9); BETA 1 GLOBULIN 0.3 g/dL (0.4-0.6); BETA 2 GLOBULIN 0.3 g/dL (0.2-0.5); GAMMA GLOBULIN 0.4 g/dL (0.8-1.7)
[2019-04-25] MEDS: SODIUM CHLORIDE 0.9% 1,000 ML IV SCH ×2 (01:01→01:14)
[2019-04-25] MEDS: SODIUM CHLORIDE FLUSH 0.9% 10 ML SYRINGE IVP SCH ×4 (01:34→21:43)
[2019-04-25] MEDS: HYDROmorphone 1 MG/ML CARPUJECT IVP PRN ×3 (05:08→21:46)
[2019-04-25] MEDS: SODIUM CHLORIDE FLUSH 0.9% 10 ML SYRINGE IVP PRN ×6 (05:09→22:22)
[2019-04-25 05:16] LABS: INR 3.2 (0.8-1.2); PT - PROTHROMBIN TIME 34.5 secs (9.9-12.6)
[2019-04-25 05:35] LABS: CALCIUM 8.1 mg/dL (8.5-10.3); CREATININE 0.6 mg/dL (0.6-1.2); MAGNESIUM 1.7 mg/dL (1.7-2.8); PHOSPHORUS 2.7 mg/dL (2.5-4.6)
[2019-04-25] MEDS: PANTOPRAZOLE 40 MG VIAL IVP SCH (06:32)
[2019-04-25] MEDS: diltiaZEM INJ 125 MG in SODIUM CHLORIDE 0.9% 100ML 100 ML IV SCH (08:07)
[2019-04-25] MEDS: MIN OIL/DIMETHICON/COCONUT OIL 92 GM TUBE TOP PRN ×4 (10:00→18:43)
[2019-04-25] MEDS: polyethylene glycoL 3350 17 GM PACKET PO SCH (10:06)
[2019-04-25] MEDS: DOCUSATE SODIUM 250 MG CAPSULE PO SCH (10:06)
[2019-04-25] MEDS: FERROUS SULFATE 300 MG/5 ML UDC PO SCH (10:06)
[2019-04-25] MEDS: METOPROLOL SUCCINATE 25 MG TABLET PO SCH (10:06)
[2019-04-25] MEDS: SENNA 8.6 MG TABLET PO SCH (10:07)
[2019-04-25] MEDS: TAMSULOSIN 0.4 MG CAPSULE PO SCH (10:07)
[2019-04-25] MEDS: D5NS W/20 MEQ KCL 1,000 ML IV SCH ×2 (11:33→19:22)
[2019-04-25 11:52] LABS: BASOPHILS % (AUTO) 0.3 %; EOSINOPHILS % (AUTO) 0.7 %; HGB - HEMOGLOBIN 9.8 g/dL (14.0-18.0); LYMPHOCYTES % (AUTO) 18.4 %; MEAN CORPUSCULAR HGB CONC 32.5 g/dL (32.0-36.0); MEAN CORPUSCULAR VOLUME 89.3 fL (80.0-94.0); MEAN PLATELET VOLUME 8.5 fL (7.4-11.4); MONOCYTES % (AUTO) 8.2 %; NEUTROPHILS % (AUTO) 63.4 %; PLT - PLATELET COUNT 135 10^3/uL (130-450); RED BLOOD COUNT 3.38 10^6/uL (4.70-6.10); RED CELL DISTRIBUTION WIDTH 16.7 % (12.0-15.0); WHITE BLOOD COUNT 9.7 x10^3/uL (4.8-10.8)
[2019-04-25 11:55] LABS: ABNORMAL LYMPHS % (MANUAL) 0 %
--- NOTE | 2019-04-25 12:04 | CT Report ---
Reason: Obtunded, L side weakness Procedure Date: 04/25/2019 Accession Number: [id number] / [id number] Procedure: CT - Head W/O Stroke Protocol CPT Code: Final Report FULL RESULT: EXAM: CT HEAD EXAM DATE: 04/25/2019 11:33 AM. CLINICAL HISTORY: Obtunded, left side weakness. History of multiple CVAs. COMPARISON: MRI BRAIN W/WO 10/29/2013 11:[address] HEAD W/O 10/06/2013 3:49 PM. TECHNIQUE: Multiaxial CT images were obtained from the foramen magnum to the vertex. Reformats: Sagittal and coronal. IV contrast: None. In accordance with CT protocol optimization, one or more of the following dose reduction techniques were utilized for this exam: automated exposure control, adjustment of mA and/or KV based on patient size, or use of iterative reconstructive technique. FINDINGS: Parenchyma: Large area of parenchymal hypodensity and sulcal effacement is seen in lateral right frontal and parietal lobes within MCA vascular territory. Smaller area of similar-appearing parenchymal hypodensity and sulcal effacement is seen in lateral right occipital lobe within lateral [employer] vascular territory. No associated hemorrhage is seen. Patchy white matter hypodensity is seen throughout the cerebral hemispheres. Small cystic focus is seen in the right henriquez radiata at the junction with the internal capsule. No intracranial hemorrhage. Extraaxial Spaces: Normal for age. No subdural or epidural collections identified. Ventricles: No hydrocephalus. No intraventricular hemorrhage. Sinuses and Orbits: Mild polypoid mucosal thickening is seen involving right frontal and anterior ethmoid sinuses. Scattered polypoid mucosal thickening is seen in bilateral maxillary sinuses and left ethmoid air cells. Small focus of polypoid mucosal thickening is seen in the posterior superior left nasal cavity. The visualized mastoid air cells are clear. The orbits are unremarkable. Bones: No evidence of fracture or calvarial defect. Other: Marked vascular calcifications are seen involving intracranial ICA and vertebral arteries. IMPRESSION: 1. Parenchymal hypodensity is seen throughout the lateral right cerebral hemisphere involving MCA territory of frontal and parietal lobes. Localized sulcal effacement is seen. No associated hemorrhage. Findings are consistent with MCA territory infarct. 2. ASPECTS is 5 out of 10 in right MCA territory. 3. Parenchymal hypodensity and sulcal effacement in the posterolateral right occipital lobe. No associated hemorrhage. This suggests acute infarct in lateral [employer] vascular territory. 4. Acute infarcts in 2 different vascular territories suggest embolic source. 5. Patchy white matter hypodensity is seen throughout the cerebral hemispheres. This is nonspecific. This can be seen secondary to small vessel ischemic change. Cystic focus is seen at the junction of the right internal capsule and henriquez radiata lateral to the body of the lateral ventricle consistent with old lacunar infarct. This is unchanged. 6. Marked intracranial atherosclerotic vascular calcifications. RADIA The critical test notification system was initiated by Dr. Iain Larios at 11:53 AM on 04/25/2019. The above critical test findings were discussed with Dr. Kim Londono by Dr. Iain Larios at 11:59 AM on 04/25/2019.
[2019-04-25 12:17] LABS: GLUCOSE, URINE (UA) NEGATIVE (NEGATIVE); KETONES,URINE (UA) 40 mg/dL (NEGATIVE); LEUKOCYTE ESTERASE, URINE MODERATE (NEGATIVE); NITRITE,URINE NEGATIVE (NEGATIVE); OCCULT BLOOD,URINE MODERATE (NEGATIVE); PH,URINE 5.5 PH (5.0-7.5); PROTEIN,URINE TRACE mg/dL (NEGATIVE); UROBILINOGEN,URINE 1 (NORMAL) E.U./dL (NORMAL)
[2019-04-25 12:19] LABS: CLARITY,URINE HAZY (CLEAR)
[2019-04-25 12:23] LABS: BILIRUBIN,URINE NEGATIVE (NEGATIVE); ICTOTEST,URINE NEGATIVE
[2019-04-25 12:31] LABS: BAND NEUTROPHILS % (MANUAL) 3 %; DIFFERENTIAL COMMENT MANUAL DIFFERENTIAL; EOSINOPHILS # (MANUAL) 0.1 10^3/uL (0-0.7); LYMPHOCYTES # (MANUAL) 1.5 10^3/uL (1.5-3.5); LYMPHOCYTES % (MANUAL) 7 %; METAMYELOCYTES % (MANUAL) 1 %; MONOCYTES # (MANUAL) 0.5 10^3/uL (0.0-1.0); MYELOCYTES % (MANUAL) 7 %
[2019-04-25] MEDS: ACETAMINOPHEN 1,000 MG/100 ML 100 ML IV PRN (12:33)
[2019-04-25 12:36] LABS: BACTERIA,URINE Moderate /HPF (None Seen); SQUAMOUS EPITHELIAL CELL,UR RARE Squamous (<= Few)
--- NOTE | 2019-04-25 13:06 | XRAY Report ---
Reason: Fever, eval for pneumonia Procedure Date: 04/25/2019 Accession Number: [id number] / [id number] Procedure: XR - Chest 1 View X-Ray CPT Code: 71475 Final Report FULL RESULT: EXAM: CHEST RADIOGRAPHY EXAM DATE: 04/25/2019 12:00 PM. CLINICAL HISTORY: Fever, evaluate for pneumonia. COMPARISON: CHEST 1 VIEW 04/24/2019 1:12 PM. TECHNIQUE: 1 view. FINDINGS: Lungs/Pleura: Slight worsening of airspace opacification at the lung bases suggesting increasing pleural fluid collections. Cephalization of the pulmonary vasculature. Bilateral mid to upper lung alveolar and interstitial opacification is similar to previous. Mediastinum: Stable cardiomegaly. Other: Blastic changes within the bones similar to previous, compatible with metastatic disease. IMPRESSION: Slight worsening of pulmonary edema. RADIA
[2019-04-25] MEDS: METOPROLOL 5 MG/5 ML VIAL IVP SCH ×2 (14:32→22:22)
--- NOTE | 2019-04-25 14:42 | PHARMACY PROGRESS NOTE ---
- Therapy Status Vancomycin regimen day #: 1 Therapy status: Awaiting steady state Basis for treatment: Empirical Treatment indication: Possible HCAP Trough goal: 15-20 Concurrent antibiotics: Levofloxacin - SILVIA Risk Risk level for Acute Kidney Injury: Moderate Acute Kidney Injury risk factors: Goal trough >15, Admission to ICU - Monitoring and Recommendation Clinical response to treatment: I&O Previous 24 hours 04/23/19 04/24/19 04/25/19 23:59 23:59 23:59 Intake Total 2628.333 3313.500 2535.167 Output Total 800 1005 570 Balance 0521.262 1521.500 1965.167 Lab Results 04/25/19 04/24/19 04/23/19 04:05 05:25 04:35 BUN 12 12 14 Creatinine 0.6 0.7 0.6 Estimated GFR (MDRD) 132 110 132 04/22/19 04/21/19 05:00 09:05 BUN 21 H 32 H Creatinine 0.7 0.8 Estimated GFR (MDRD) 110 94 Monitoring plan: Daily serum creatinine, Draw trough early Next trough due prior to maintenance dose #: 4 Next trough due (date/time): 04/27/2019 at 0730 Areas for additional monitoring: IV to PO when appropriate, Therapy de- escalation based on culture results, C. difficile infection risk reduction Pharmacy recommendation: Continue current regime
[2019-04-25] MEDS ORDERED: VANCOMYCIN PER PHARMACY 100 GM in SODIUM CHLORIDE 0.9% 250 ML IV SCH (15:00)
[2019-04-25] MEDS ORDERED: VANCOMYCIN INJ 1.5 GM in SODIUM CHLORIDE 0.9% 500 ML IV ONE (15:00)
[2019-04-25] MEDS: ASPIRIN EC 81 MG TABLET PO SCH (15:23)
[2019-04-25] MEDS ORDERED: levoFLOXacin 750 MG/150 ML 750 MG/150 ML BAG IV SCH (16:00)
--- NOTE | 2019-04-25 16:55 | PROVIDER PROGRESS NOTE ---
Assessment/Plan - Problem List (1) Acute CVA (cerebrovascular accident) Assessment/Plan: Physical exam was consistent with a left-sided CVA at 0915. Stat head CT, stroke protocol was ordered and done. This showed a large right MCA territory CVA and another smaller acute stroke. This makes the likelihood of embolic stroke very high. The patient Hx and clinical condition was evaluated for being a TPA candidate: Today's PT is 3.2, therefore he does not qualify to get TPA. In addition, his DPOA arrived at approximately 1430 (with the approved paperwork documunting that she is DPOA), and she would be the one to sign consent for aggressive interventions, However that was out of the 6-hour window from last known well at 0500. At approximately 1230, the patient started to have some recovery with ability to speak (previosuly was grunting), able to swallow his saliva, had improved left facial droop, followed commands but still had continued dense left arm hemiparesis and loss of sensation. An urgent swallowing eval by speech therapy was ordered. This showed that he is able to manage his secretions and recommendations are to start a pured diet and nectar thick liquids. The patient will be given aspirin STAT and daily, and statin medication started (his statin side effect is muscle weakness, the current need for statin outweighs the risk of his muscle symptom). An Echo had already be done just yesterday when he was in rapid A. fib. This showed no intracardiac clot and no intracardiac shunt. Will evaluate carotid arteries with Doppler. Will start PT, OT. The patient was informed of the above. The DPOA was informed of the above (later, at his bedside) as well as stroke prognosis, and a plan for SNF for PT and OT. CRITICAL CARE TIME SPENT: 60 min (2) Fever Assessment/Plan: CBC, lactic acid level, blood cultures x2, chest x-ray, urine culture ordered. We will begin empiric coverage for potential aspiration pneumonia or healthcare acquired pneumonia with IV Levaquin and IV vancomycin (3) Chronic a-fib Assessment/Plan: RVR resolved yesterday on iv Cardizem drip. Coumadin has been continued since he had no EGD or biopsy yesterday. Yesterday's INR was 1.5 but this morning is 3.2. Continue with rate control using IV Cardizem drip today and continue with Coumadin or transition to NOAC, after W/U for CVA. (4) Urinary retention Assessment/Plan: Tam was placed 2 days ago (5) Hyponatremia Assessment/Plan: Improving on NS iv Follow BMP daily (6) Odynophagia Assessment/Plan: Initially the plan was for rescheduling the EGD with today's general surgeon, but the patient spiked a fever and the EGD procedure will be canceled. (7) Severe protein-calorie malnutrition Assessment/Plan: Continue to progress toward better protein and calorie intake (8) Bony metastasis Assessment/Plan: This was found at admission. Primary is unknown. Oncology work-up is necessary (9) Elevated PSA Assessment/Plan: This may be the primary site of malignancy. This may be associated with his reason for urinary retention. Continue with Tam care (10) Anemia Qualifiers: Anemia type: iron deficiency Assessment/Plan: Continue with iron replacement. Follow CBC daily (11) Generalized muscle weakness Assessment/Plan: He was weak this entire admission. He now has focal weakness and will need post-stroke rehab. 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 Troponins (done yesterday whn he had Afib with RVR) were elevated but in a flat pattern, ruling out acute coronary event (14) Hx of right BKA Assessment/Plan: As per Hx (15) History of CVA (cerebrovascular accident) Assessment/Plan: Prior lacunar strokes per Hx (16) Dehydration Assessment/Plan: Resolved (17) Rhabdomyolysis Qualifiers: Rhabdomyolysis type: non-traumatic Qualified Code(s): M62.82 - Rhabdomyolysis Assessment/Plan: Resolved (18) Atrial fibrillation with RVR Assessment/Plan: RVR resolved yestrday on iv Cardizem drip. Coumadin has been continued since he had no EGD or biopsy. Yesterday's INR was 1.5 but this morning is 3.2. Continue with rate control using IV Cardizem drip today and continue with Coumadin or transition to NOAC - Current Meds Current Meds: Current Medications Generic Name Dose Route Start Last Admin Trade Name Freq PRN Reason Stop Dose Admin Aspirin 162 mg 04/25/19 15:30 04/25/19 15:23 Ecotrin PO 162 mg DAILY CHARLENE Administration Hydromorphone HCl 1 mg 04/22/19 23:43 04/25/19 05:08 Dilaudid Inj Carp IVP 1 mg Q3HR PRN Administration PAIN Diltiazem HCl 125 mg/ Sodium 125 mls @ 5 mls/hr 04/24/19 15:00 04/25/19 12:15 Chloride IV 5 mg/hr .Q25H CHARLENE 5 mls/hr Titration Protocol 5 MG/HR Potassium Chloride/Dextrose/Sod Cl 1,000 mls @ 125 mls/hr 04/25/19 11:00 04/25/19 12:15 IV 125 mls/hr .Q8H CHARLENE Infusion Acetaminophen 100 mls @ 400 mls/hr 04/25/19 10:45 04/25/19 12:33 Ofirmev IV 400 mls/hr Q6HR PRN Administration Pain or Fever > 38C (100.4F) Vancomycin HCl 1.5 gm/ Sodium 500 mls @ 250 mls/hr 04/25/19 15:00 04/25/19 15:13 Chloride IV 04/25/19 16:59 250 mls/hr ONCE ONE Administration Metoprolol Tartrate 2.5 mg 04/25/19 14:00 04/25/19 14:32 Lopressor Inj IVP Not Given Q8HR CHARLENE Mineral Oil 1 applic 04/21/19 22:42 04/25/19 13:20 Cavilon TOP 1 applic PRN PRN Administration Skin Care Ondansetron HCl 4 mg 04/21/19 12:00 04/23/19 23:45 Zofran Inj IVP 4 mg Q6HR PRN Administration Nausea / Vomiting Pantoprazole Sodium 40 mg 04/21/19 19:00 04/25/19 06:32 Protonix IVP 40 mg QDAC CHARLENE Administration Sodium Chloride 10 ml 04/21/19 12:00 04/25/19 12:37 Normal Saline Flush 0.9% IVP 20 ml PRN PRN Administration NEEDED PER PROVIDER ORDERS Sodium Chloride 10 ml 04/21/19 17:00 04/25/19 10:07 Normal Saline Flush 0.9% IVP Not Given 0100,0900,1700 CHARLENE - Lab Result Fish Bone Diagrams: 04/25/19 11:40 04/26/19 04:20 - Additional Planning My Orders: My Active Orders 04/25/19 Consult [General Surgery Consult] [CONS] Routine Clinical Swallow Evaluation [ST] Routine 04/25/19 10:45 Acetaminophen 1,000 mg/100 ml [Ofirmev] 100 ml IV Q6HR 04/25/19 11:00 D5ns W/20 Meq KCl 1,000 ml IV 125 mls/hr 04/25/19 11:37 CUL, URINE [RM] Stat 04/25/19 11:40 CULTURE, BLOOD #1 [RM] Urgent 04/25/19 12:17 CULTURE, BLOOD #2 [RM] Urgent 04/25/19 14:00 Metoprolol Inj [Lopressor Inj] 2.5 mg IVP Q8HR 04/25/19 15:00 Vancomycin Inj [Vancomycin] 1.5 gm Sodium Chloride 0.9% [Normal Saline 0.9%] 500 ml IV ONCE 04/25/19 15:30 Aspirin EC [Ecotrin] 162 mg PO DAILY 04/25/19 16:00 levoFLOXacin 750 MG/150 ML [Levaquin 750 mg/150 ml] 750 mg in 150 ml IV Q24H 04/25/19 17:00 Atorvastatin [Lipitor] 80 mg PO QPM 04/25/19 Dinner Dysphagia Puree Diet [DIET] 04/26/19 05:00 PT WITH INR [COAG] DAILYLAB 04/26/19 08:00 Vancomycin Inj [Vancomycin] 1 gm Sodium Chloride 0.9% [Normal Saline 0.9%] 250 ml IV Q12H 04/26/19 09:00 Enoxaparin [Lovenox] 60 mg SUBQ BID 04/27/19 07:30 VANCOMYCIN TROUGH [CHEM] Timed Subjective - Subjective Patient Reports: Other (Cannot feel L arm, cannot move left arm) Nursing Reports: Other (Patient had last known well at 04 50 2 AM. At 09 100, the nurse went to wake him up and he did not respond to his name, follow com mands or move his left side. He also had a fever spike of 38.7 at this time.) Objective Vital Signs: Vital Signs - 24 hr 04/24/19 04/24/19 04/24/19 17:00 18:00 19:00 Temperature Heart Rate [ 104 H 106 H Monitoring electrodes] Heart Rate [ 96 Radial] Respiratory 20 19 20 Rate Blood Pressure Blood Pressure 113/72 125/75 134/68 H [Left Brachial artery] O2 Saturation 97 125 H 94 04/24/19 04/24/19 04/24/19 20:00 21:00 22:00 Temperature 36.9 C Heart Rate [ 91 107 H 103 H Monitoring electrodes] Heart Rate [ Radial] Respiratory 17 22 21 Rate Blood Pressure Blood Pressure 100/71 118/77 107/70 [Left Brachial artery] O2 Saturation 94 96 98 04/24/19 04/25/19 04/25/19 23:00 00:00 01:00 Temperature 36.9 C Heart Rate [ 99 96 94 Monitoring electrodes] Heart Rate [ Radial] Respiratory 20 19 18 Rate Blood Pressure Blood Pressure 105/72 102/70 110/74 [Left Brachial artery] O2 Saturation 95 96 95 04/25/19 04/25/19 04/25/19 02:00 03:00 04:00 Temperature 36.6 C Heart Rate [ 92 94 109 H Monitoring electrodes] Heart Rate [ Radial] Respiratory 19 19 28 H Rate Blood Pressure Blood Pressure 114/80 106/66 123/78 [Left Brachial artery] O2 Saturation 96 94 95 04/25/19 04/25/19 04/25/19 05:00 06:00 07:00 Temperature 37 C Heart Rate [ 92 78 82 Monitoring electrodes] Heart Rate [ Radial] Respiratory 17 13 13 Rate Blood Pressure Blood Pressure 110/68 92/60 107/57 L [Left Brachial artery] O2 Saturation 93 95 95 04/25/19 04/25/19 04/25/19 08:00 08:07 09:15 Temperature 37.8 C H 38.6 C H Heart Rate [ 77 Monitoring electrodes] Heart Rate [ Radial] Respiratory 13 Rate Blood Pressure 102/71 Blood Pressure 102/71 [Left Brachial artery] O2 Saturation 95 04/25/19 04/25/19 04/25/19 10:00 11:02 12:10 Temperature 38 C H 38 C H 37.7 C H Heart Rate [ 92 76 87 Monitoring electrodes] Heart Rate [ Radial] Respiratory 14 15 14 Rate Blood Pressure Blood Pressure 125/69 120/70 115/65 [Left Brachial artery] O2 Saturation 94 96 97 04/25/19 04/25/19 04/25/19 13:10 14:00 14:32 Temperature Heart Rate [ 91 87 Monitoring electrodes] Heart Rate [ Radial] Respiratory 16 16 Rate Blood Pressure 103/67 Blood Pressure 118/74 103/67 [Left Brachial artery] O2 Saturation 96 95 04/25/19 04/25/19 15:00 16:00 Temperature 37.3 C 37.2 C Heart Rate [ 87 95 Monitoring electrodes] Heart Rate [ Radial] Respiratory 19 22 Rate Blood Pressure Blood Pressure 130/76 110/62 [Left Brachial artery] O2 Saturation 97 95 Oxygen O2 Source Room air I&O (Last 24 Hrs): Intake and Output Totals x24h 04/23/19 04/24/19 04/25/19 23:59 23:59 23:59 Intake Total 2628.333 3313.500 2535.167 Output Total 800 1005 570 Balance 7859.376 8175.500 1965.167 General: Other (Lethargic, opens right eyes slightly, roes not follow commands, L sided neglect) HEENT: Mucous membr. moist/pink, Other (poor dentition) Neck: Supple, No JVD Neuro: Other (L arm 0/5 strengthand no sensation, L leg 1/5 strength, hyporeflexic on L, no [place]is) Cardiovascular: No murmurs, Other (Irreg) Respiratory: No respiratory distress, Other (Shallow respirations) Abdomen: Soft, No tenderness Extremities: No edema - Results Results: Laboratory Results WBC 9.7 x10^3/uL (4.8-10.8) 04/25/19 11:40 RBC 3.38 10^6/uL (4.70-6.10) L 04/25/19 11:40 Hgb 9.8 g/dL (14.0-18.0) L 04/25/19 11:40 Hct 30.2 % (42.0-52.0) L 04/25/19 11:40 MCV 89.3 fL (80.0-94.0) 04/25/19 11:40 MCH 29.0 pg (27.0-31.0) 04/25/19 11:40 MCHC 32.5 g/dL (32.0-36.0) 04/25/19 11:40 RDW 16.7 % (12.0-15.0) H 04/25/19 11:40 Plt Count 135 10^3/uL (130-450) 04/25/19 11:40 MPV 8.5 fL (7.4-11.4) 04/25/19 11:40 Neut # (Auto) Not Reportable 04/25/19 11:40 Lymph # (Auto) Not Reportable 04/25/19 11:40 [place] # (Auto) Not Reportable 04/25/19 11:40 Eos # (Auto) Not Reportable 04/25/19 11:40 Baso # (Auto) Not Reportable 04/25/19 11:40 Absolute Nucleated RBC Not Reportable 04/25/19 11:40 Total Counted 100 04/25/19 11:40 Band Neuts % (Manual) 3 % (0-10) 04/25/19 11:40 Reactive Lymphs % (Man) 8 % 04/25/19 11:40 Abnorm Lymph % (Manual) 0 % 04/25/19 11:40 Metamyelocytes % 1 % (-0) H 04/25/19 11:40 Myelocytes % 7 % (-0) H 04/25/19 11:40 Nucleated RBC % Not Reportable 04/25/19 11:40 Neutrophils # (Manual) 6.9 10^3/uL (1.5-6.6) H 04/25/19 11:40 Lymphocytes # (Manual) 1.5 10^3/uL (1.5-3.5) 04/25/19 11:40 Monocytes # (Manual) 0.5 10^3/uL (0.0-1.0) 04/25/19 11:40 Eosinophils # (Manual) 0.1 10^3/uL (0-0.7) 04/25/19 11:40 Basophils # (Manual) 0.0 10^3/uL (0-0.1) 04/25/19 11:40 Differential Comment MANUAL DIFFERENTIAL 04/25/19 11:40 PT 34.5 secs (9.9-12.6) H 04/25/19 04:05 INR 3.2 (0.8-1.2) H 04/25/19 04:05 Sodium 134 mmol/L (135-145) L 04/25/19 04:05 Potassium 4.1 mmol/L (3.5-5.0) 04/25/19 04:05 Chloride 105 mmol/L (101-111) 04/25/19 04:05 Carbon Dioxide 15 mmol/L (21-32) L 04/25/19 04:05 Anion Gap 14.0 (6-13) H 04/25/19 04:05 BUN 12 mg/dL (6-20) 04/25/19 04:05 Creatinine 0.6 mg/dL (0.6-1.2) 04/25/19 04:05 Estimated GFR (MDRD) 132 (>89) 04/25/19 04:05 Glucose 106 mg/dL (70-100) H 04/25/19 04:05 Lactic Acid 1.6 mmol/L (0.5-2.2) 04/25/19 11:40 Calcium 8.1 mg/dL (8.5-10.3) L 04/25/19 04:05 Phosphorus 2.7 mg/dL (2.5-4.6) 04/25/19 04:05 Magnesium 1.7 mg/dL (1.7-2.8) 04/25/19 04:05 Iron 41 ug/dL (45-182) L 04/23/19 04:35 TIBC 130 ug/dL (250-450) L 04/23/19 04:35 % Saturation 31 % (20-50) 04/23/19 04:35 Transferrin 93 mg/dL (180-329) L 04/23/19 04:35 Total Bilirubin 0.9 mg/dL (0.2-1.0) 04/24/19 05:25 Direct Bilirubin 0.3 mg/dL (0.1-0.5) 04/24/19 05:25 AST 23 IU/L (10-42) 04/24/19 05:25 ALT 12 IU/L (10-60) 04/24/19 05:25 Alkaline Phosphatase 323 IU/L (42-121) H 04/24/19 05:25 Total Creatine Kinase 93 IU/L (22-269) 04/24/19 05:25 Troponin I High Sens 508.2 ng/L (2.3-19.7) H* 04/24/19 19:10 Total Protein 5.2 g/dL (6.7-8.2) L 04/24/19 05:25 Albumin 2.1 g/dL (3.2-5.5) L 04/25/19 04:05 Globulin 2.9 g/dL (2.1-4.2) 04/24/19 05:25 Albumin/Globulin Ratio 1.1 (1.0-2.2) 04/21/19 09:05 Nzup-4-Djntbtux 0.3 g/dL (0.4-0.6) L 04/22/19 05:00 Axjj-0-Pjnctlad 0.3 g/dL (0.2-0.5) 04/22/19 05:00 Lipase 21 U/L (22-51) L 04/21/19 09:05 Prostate Specific Ag > 1210.000 ng/mL (0.000-2.000) H 04/22/19 05:00 Free PSA > 160.000 ng/mL (0.16-2.81) H 04/22/19 05:00 % Free PSA Calc Not Reportable 04/22/19 05:00 Vitamin B12 651 pg/mL (180-914) 04/23/19 04:35 Folate 7.39 ng/mL (5.90 - >24.8) 04/23/19 04:35 Urine Color YELLOW 04/25/19 11:37 Urine Clarity HAZY (CLEAR) 04/25/19 11:37 Urine pH 5.5 PH (5.0-7.5) 04/25/19 11:37 Ur Specific [place] >=1.030 (1.002-1.030) H 04/25/19 11:37 Urine Protein TRACE mg/dL (NEGATIVE) 04/25/19 11:37 Urine Glucose (UA) NEGATIVE mg/dL (NEGATIVE) 04/25/19 11:37 Urine Ketones 40 mg/dL (NEGATIVE) H 04/25/19 11:37 Urine Occult Blood MODERATE (NEGATIVE) H 04/25/19 11:37 Urine Nitrite NEGATIVE (NEGATIVE) 04/25/19 11:37 Urine Bilirubin NEGATIVE (NEGATIVE) 04/25/19 11:37 Urine Urobilinogen 1 (NORMAL) E.U./dL (NORMAL) 04/25/19 11:37 Ur Leukocyte Esterase MODERATE (NEGATIVE) H 04/25/19 11:37 Urine RBC 11-25 /HPF (0-5) H 04/25/19 11:37 Urine WBC >25 /HPF (0-3) H 04/25/19 11:37 Ur Squamous Epith Cells RARE Squamous (<= Few) 04/25/19 11:37 Amorphous Sediment Rare /LPF 04/21/19 12:10 Urine Bacteria Moderate /HPF (None Seen) H 04/25/19 11:37 Ur Microscopic Review INDICATED 04/21/19 12:10 Urine Culture Comments INDICATED 04/25/19 11:37 Nasal Screen MRSA (PCR) NEGATIVE (NEGATIVE) 04/24/19 17:30 KEHINDE & SPEP Interp SEE NOTE 04/22/19 05:00 Total Protein (KEHINDE) 4.9 g/dL (6.1-8.1) L 04/22/19 05:00 Albumin (KEHINDE) 2.5 g/dL (3.8-4.8) L 04/22/19 05:00 Bedpr-1-Bjvuuotiz KEHINDE 0.7 g/dL (0.2-0.3) H 04/22/19 05:00 Wopda-3-Vbkdwqrvg KEHINDE 0.8 g/dL (0.5-0.9) 04/22/19 05:00 Gamma Globulins (KEHINDE) 0.4 g/dL (0.8-1.7) L 04/22/19 05:00 Hepatitis A IgM Ab NON-REACTIVE (NON-REACTIVE) 04/22/19 05:00 Hep Bs Antigen NON-REACTIVE (NON-REACTIVE) 04/22/19 05:00 Hep B Core IgM Ab NON-REACTIVE (NON-REACTIVE) 04/22/19 05:00 Hepatitis C Antibody NON-REACTIVE (NON-REACTIVE) 04/22/19 05:00 Hep C Ab Signal/Cutoff 0.00 (<1.00) 04/22/19 05:00 Influenza A (Rapid) Negative (Negative) 04/25/19 12:17 Influenza B (Rapid) Negative (Negative) 04/25/19 12:17 - Procedures Procedures: Procedures ENDO RECTUM POLYPECTOMY (03/04/13) ENDOSC POLYPECTOMY OF LG INTEST (03/04/13) VENOUS CATHETERIZATION NEC (10/28/13)
[2019-04-25] MEDS: ATORVASTATIN 40 MG TABLET PO SCH (17:20)
[2019-04-25] MEDS ORDERED: PIPERACILLIN/TAZOBACTAM 3.375 GM in SODIUM CHLORIDE 0.9% MINIBAG 100 ML IV ONE (21:00)
[2019-04-26] MEDS ORDERED: PIPERACILLIN/TAZOBACTAM 3.375 GM in SODIUM CHLORIDE 0.9% MINIBAG 100 ML IV SCH ×2
[2019-04-26] MEDS: SODIUM CHLORIDE FLUSH 0.9% 10 ML SYRINGE IVP PRN ×7 (01:07→21:32)
[2019-04-26] MEDS: HYDROmorphone 1 MG/ML CARPUJECT IVP PRN (01:07)
[2019-04-26] MEDS: ACETAMINOPHEN 1,000 MG/100 ML 100 ML IV PRN (02:31)
[2019-04-26] MEDS: D5NS W/20 MEQ KCL 1,000 ML IV SCH (03:43)
[2019-04-26] MEDS ORDERED: FUROSEMIDE 20 MG/2 ML VIAL IVP STA ×2 (04:47)
--- NOTE | 2019-04-26 04:48 | PROVIDER PROGRESS NOTE ---
Scorekeeper Note - Scorekeeper Note Scorekeeper Note: I was called to bedside because the patient was having respiratory distress. His O2Sat had dropped to 79% on room air. He sounded rhonchous on auscultation of the lung and he was diaphoretic. His SBP at the time was 91. He appeared edematous in extremities . His urine output was very low. He was place on a venturi mask which improved his O2Sat to 97%. Repeat SBP was 113 then 130's. His respiratory rate was 17 Chest xray showed worsening pulmonary edema ABG showed a pH of 7.27, pCO2 38, pO2 54.4 He was awake, alert and oriented. Able to track staff around the room He could follow commands. He answered questions by shaking his head yes/no.He had a strong door worker on the right but still cannot move the right. Pupils were reactive to light equally and extra-occular muscles were intact DDx: 1. Aspiration 2. Fluid overload He was given lasix 40mg IV X1. He was made NPO He is on empiric antibiotics with vancomycin/ Zosyn. Will repeat ABG in 1 hour A total of 30 minutes of critical care time was spent on the patient's care.
[2019-04-26] MEDS ORDERED: FUROSEMIDE 40 MG/4 ML VIAL ONE (04:51)
[2019-04-26 05:02] LABS: ABG PCO2 38 mmHg (34-45); ABG PH 7.28 (7.35-7.45)
[2019-04-26 05:03] LABS: ABG BASE EXCESS -8.6 mmol/L (-2.0-3.0); ABG HCO3 17.5 mmol/L (22.0-26.0); ABG TCO2 18.6 MMOL/L (21.0-29.0); ALLEN TEST POSITIVE
[2019-04-26 05:05] LABS: ABG PO2 54 mmHg (80-100)
[2019-04-26 05:06] LABS: ABG OXYGEN SATURATION 85 % (94-98)
--- NOTE | 2019-04-26 05:17 | XRAY Report ---
Reason: dyspnea, hypoxia Procedure Date: 04/26/2019 Accession Number: [id number] / [id number] Procedure: XR - Chest 1 View X-Ray CPT Code: 65333 Final Report FULL RESULT: EXAM: CHEST RADIOGRAPHY EXAM DATE: 04/26/2019 04:45 AM. CLINICAL HISTORY: Dyspnea, hypoxia. COMPARISON: CHEST 1 VIEW 04/25/2019 11:44 AM. TECHNIQUE: 1 view. 2 images. FINDINGS: Lungs/Pleura: Bilateral pleural effusions, pulmonary vascular congestion and pulmonary opacities. Findings are slightly increased compared to prior CXR. Mediastinum: Stable cardiomegaly. Atherosclerosis of the aortic arch. Other: Stable osseous structures. IMPRESSION: Worsening pattern of pulmonary edema compared to previous CXR. RADIA
[2019-04-26 05:39] LABS: PT - PROTHROMBIN TIME 70.6 secs (9.9-12.6)
[2019-04-26 05:46] LABS: INR 6.9 (0.8-1.2)
[2019-04-26 05:50] LABS: CALCIUM 7.8 mg/dL (8.5-10.3); CREATININE 0.6 mg/dL (0.6-1.2); MAGNESIUM 1.9 mg/dL (1.7-2.8); PHOSPHORUS 2.7 mg/dL (2.5-4.6)
[2019-04-26] MEDS: METOPROLOL 5 MG/5 ML VIAL IVP SCH (06:07)
[2019-04-26] MEDS: PANTOPRAZOLE 40 MG VIAL IVP SCH (06:23)
[2019-04-26] MEDS ORDERED: D5NS W/20 MEQ KCL 1,000 ML IV SCH (07:15)
[2019-04-26] MEDS: VANCOMYCIN INJ 1 GM in SODIUM CHLORIDE 0.9% 250 ML IV SCH ×2 (08:05→19:44)
[2019-04-26] MEDS: SODIUM CHLORIDE FLUSH 0.9% 10 ML SYRINGE IVP SCH ×3 (08:50→19:46)
[2019-04-26] MEDS: ASPIRIN EC 81 MG TABLET PO SCH (08:58)
[2019-04-26] MEDS ORDERED: ENOXAPARIN 60 MG/0.6 ML SYRINGE SUBQ SCH (09:00)
[2019-04-26] MEDS ORDERED: HYDROmorphone 1 MG/ML CARPUJECT IVP PRN (09:13)
[2019-04-26] MEDS: PIPERACILLIN/TAZOBACTAM 3.375 GM in SODIUM CHLORIDE 0.9% MINIBAG 100 ML IV SCH ×3 (09:55→21:30)
[2019-04-26] MEDS ORDERED: CHERRY SYRUP 10 ML UDC PO SCH (10:33)
[2019-04-26] MEDS ORDERED: PHYTONADIONE 10 MG/ML AMP PO SCH (10:33)
--- NOTE | 2019-04-26 10:38 | PROVIDER PROGRESS NOTE ---
Assessment/Plan - Problem List (1) Acute CVA (cerebrovascular accident) Assessment/Plan: The patient suffered a stroke yesterday, his last known well was 0500, then the neurologic changes were noted at 0900. CT head was done. He was not a TPA candidate due to having an INR > 1.7 (his was 3.2 yesterday). He started to have some neurologic recovery at 12 noon yesterday. He continues to have slight further improvement today with less left-sided neglect, and he passed a swallowing eval. He still has left arm weakness. 2 baby aspirin daily were started as well as daily statin (the muscle pain side effect by Hx was overridden). He had been on Coumadin with INR 1.5 the day before then 3.2 yesterday. Today INR is 6.9. Will give vitamin K in order to decrease INR, since risk of hemorrhagic conversion of the stroke is high with an acute stroke. Allow permissive HTN. Will therefore stagger his CHF meds. Remain in the ICU. Change IV meds to p.o. Continue with his soft diet and nectar thick liquids. Needs help with clearing secretions in his weakened condition. Will add Mucinex. He will need transfer for PT and OT rehab at a SNF. This was already discussed with him and DPOA at bedside yesterday afternoon. PT is on hold yet currently because of his significant other comorbidities of new pulmonary edema and infection (UTI) (2) Pulmonary edema Assessment/Plan: At 0400 today he had respiratory distress and desaturated to 79% on room air. Supplemental oxygen was ordered. Chest x-ray showed pulmonary edema. He was given IV Lasix and has had good urine output. IV fluids stopped (he was getting iv hydration since admission for treating rhabdomyolysis, then because of poor po intake of food and liquids). Will continue iv bid Lasix for 1-2 days. The chest x-ray did not show evidence of an infiltrate. (3) Systolic heart failure Assessment/Plan: His LVEF was documented at 40%, on the day that he had A. fib with RVR, when he had sedation started for the EGD. Will manage with Lasix, start spironolactone, resume his beta-ger and his lisinopril. (4) UTI (urinary tract infection) Assessment/Plan: The urine culture is growing bacteria. Continue empiric Zosyn plus Vanco (5) Chronic a-fib Assessment/Plan: A. fib with RVR had improved by yesterday morning, then he had his stroke yesterday therefore the IV Cardizem drip was continued all through yesterday, until swallowing was evaluated, to transition to oral meds.. Will titrate the Cardizem drip to off today and use beta-ger oral dosing for rate control. Today the INR is 6.9 (probably elevated due to antibiotic use) and he will need vitamin K for decreasing this level. Recheck INR later today. He may be a Coumadin-failure, and would need transition to a novel oral anticoagulant. (6) Urinary retention Assessment/Plan: Flomax had been started several days ago, stopped when he was hypotensive yesterday. A Tam catheter is now in for the past 2 days which will continue since he is in critical condition, monitoring I's and O's and for managing urinary retention. (7) Odynophagia Assessment/Plan: Painful swallowing was the reason he admitted to poor p.o. food and liquid intake at home for the past 2 weeks. This is been worked up with barium swallow fluoroscopy earlier this admission. There was plan for EGD earlier further evaluation but the EGD was canceled when he went into rapid A. fib and he is moved to the ICU. The EGD has not been rescheduled yet because of yesterday's acute stroke and fever. He did pass a swallowing evaluation (after the stroke) and is able to tolerate soft food such as pudding, and has been ordered to have soft food and nectar thick liquids. (8) Severe protein-calorie malnutrition Assessment/Plan: Patient has had intake of less than 50% of recommended for 2 weeks or more and a weight loss of 6.7% in the past 1 month. He has been bedridden and has significantly reduced functional capacity. Appreciate registered dietitian and speech therapist inputs (9) Bony metastasis Assessment/Plan: This is a new finding from imaging done at admission. There were no lymph nodes amenable to biopsy by IR. He had some blood test done to search for a primary site. The PSA is elevated. The SPEP is normal. Further evaluation is planned with Oncology consultation (10) Elevated PSA Assessment/Plan: The prostate may be his site of primary malignancy and prostatic enlargement may be leading to the urinary retention. He and his DPOA were still interested in evaluating the malignancy with Oncology consultation. (11) Anemia Qualifiers: Anemia type: iron deficiency Assessment/Plan: Will resume his oral iron replacement (12) Generalized muscle weakness Assessment/Plan: This was his admitting complaint and found to be the reason for his fall at home, laid on the floor for 6 hours leading to rhabdomyolysis. PT had been started before he moved to the ICU but he was refusing participation, stating that he was too tired and too weak. (13) PVD (peripheral vascular disease) Assessment/Plan: As per Hx (14) Hx of coronary artery disease Assessment/Plan: As per Hx (15) Hx of right BKA Assessment/Plan: S/P R BKA after osteo and PVD (16) Dehydration Assessment/Plan: Resolved (17) Rhabdomyolysis Qualifiers: Rhabdomyolysis type: non-traumatic Qualified Code(s): M62.82 - Rhabdomyolys is Assessment/Plan: Resolved (18) Hyponatremia Assessment/Plan: Resolved - Current Meds Current Meds: Current Medications Generic Name Dose Route Start Last Admin Trade Name Freq PRN Reason Stop Dose Admin Aspirin 162 mg 04/25/19 15:30 04/26/19 08:58 Ecotrin PO 162 mg DAILY CHARLENE Administration Atorvastatin Calcium 80 mg 04/25/19 17:00 04/25/19 17:20 Lipitor PO 80 mg QPM CHARLENE Administration Diltiazem HCl 125 mg/ Sodium 125 mls @ 5 mls/hr 04/24/19 15:00 04/26/19 10:00 Chloride IV 04/26/19 18:00 2.5 mg/hr .Q25H CHARLENE 2.5 mls/hr Titration Protocol 5 MG/HR Vancomycin HCl 1 gm/ Sodium 250 mls @ 167 mls/hr 04/26/19 08:00 04/26/19 09:35 Chloride IV Infused Q12H CHARLENE Infusion Piperacillin Sod/Tazobactam 100 mls @ 25 mls/hr 04/26/19 10:00 04/26/19 09:55 Sod 3.375 gm/ Sodium Chloride IV 25 mls/hr Q6H CHARLENE Administration Mineral Oil 1 applic 04/21/19 22:42 04/25/19 18:43 Cavilon TOP 1 applic PRN PRN Administration Skin Care Ondansetron HCl 4 mg 04/21/19 12:00 04/23/19 23:45 Zofran Inj IVP 4 mg Q6HR PRN Administration Nausea / Vomiting Sodium Chloride 10 ml 04/21/19 12:00 04/26/19 06:23 Normal Saline Flush 0.9% IVP 10 ml PRN PRN Administration NEEDED PER PROVIDER ORDERS Sodium Chloride 10 ml 04/21/19 17:00 04/26/19 08:50 Normal Saline Flush 0.9% IVP 10 ml 0100,0900,1700 [facility] Administration - Lab Result Fish Bone Diagrams: 04/25/19 11:40 04/26/19 04:20 - Additional Planning My Orders: My Active Orders 04/25/19 11:37 CUL, URINE [RM] Stat 04/25/19 11:40 CULTURE, BLOOD #1 [RM] Urgent 04/25/19 12:17 CULTURE, BLOOD #2 [RM] Urgent 04/25/19 15:30 Aspirin EC [Ecotrin] 162 mg PO DAILY 04/25/19 17:00 Atorvastatin [Lipitor] 80 mg PO QPM 04/25/19 Dinner Dysphagia Puree Diet [DIET] 04/26/19 08:00 Vancomycin Inj [Vancomycin] 1 gm Sodium Chloride 0.9% [Normal Saline 0.9%] 250 ml IV Q12H 04/26/19 10:27 Miscellaenous Nursing Order [RC] ONCE 04/26/19 10:30 HYDROmorphone INJ CARP [Dilaudid Inj Carp] 0.5 mg IVP Q6HR PRN 04/26/19 10:33 [place]by Syrup 10 ml PO ONCE ONE Phytonadione Inj (Adult) [Vitamin K (Adult)] 5 mg PO ONCE ONE 04/26/19 14:00 FUROSEMIDE INJ 20mg VIAL [LASIX INJ 20mg VIAL] 20 mg IVP BIDDIURETIC 04/27/19 07:30 VANCOMYCIN TROUGH [CHEM] Timed 04/27/19 09:00 lisinopriL [Zestril] 2.5 mg PO DAILY 04/27/19 12:00 Metoprolol Succinate [Toprol Xl] 50 mg PO DAILY 04/27/19 14:00 Spironolactone [Aldactone] 25 mg PO DAILY Subjective - Subjective Patient Reports: Resting Comfortably Nursing Reports: Other (No appetite) Objective Vital Signs: Vital Signs - 24 hr 04/25/19 04/25/19 04/25/19 11:02 12:10 13:10 Temperature 38 C H 37.7 C H Heart Rate [ 76 87 91 Monitoring electrodes] Respiratory 15 14 16 Rate Blood Pressure Blood Pressure 120/70 115/65 118/74 [Left Brachial artery] O2 Saturation 96 97 96 04/25/19 04/25/19 04/25/19 14:00 14:32 15:00 Temperature 37.3 C Heart Rate [ 87 87 Monitoring electrodes] Respiratory 16 19 Rate Blood Pressure 103/67 Blood Pressure 103/67 130/76 [Left Brachial artery] O2 Saturation 95 97 04/25/19 04/25/19 04/25/19 16:00 17:00 18:00 Temperature 37.2 C 36.4 C L Heart Rate [ 95 79 93 Monitoring electrodes] Respiratory 22 16 18 Rate Blood Pressure Blood Pressure 110/62 104/60 128/68 [Left Brachial artery] O2 Saturation 95 95 96 04/25/19 04/25/19 04/25/19 19:00 20:00 21:00 Temperature 37.1 C Heart Rate [ 89 84 90 Monitoring electrodes] Respiratory 14 12 14 Rate Blood Pressure Blood Pressure 102/65 120/63 123/64 [Left Brachial artery] O2 Saturation 97 99 99 04/25/19 04/25/19 04/25/19 22:00 22:22 22:30 Temperature 37.3 C Heart Rate [ 87 75 Monitoring electrodes] Respiratory 13 11 L Rate Blood Pressure 116/59 L Blood Pressure 116/59 L 112/61 [Left Brachial artery] O2 Saturation 98 98 04/25/19 04/25/19 04/25/19 22:35 22:41 22:45 Temperature Heart Rate [ 72 69 78 Monitoring electrodes] Respiratory 11 L 11 L 11 L Rate Blood Pressure Blood Pressure 95/55 L 94/50 L 93/60 [Left Brachial artery] O2 Saturation 97 98 98 04/25/19 04/25/19 04/25/19 23:00 23:15 23:30 Temperature Heart Rate [ 80 83 85 Monitoring electrodes] Respiratory 12 12 13 Rate Blood Pressure Blood Pressure 93/56 L 110/54 L 119/79 [Left Brachial artery] O2 Saturation 98 98 98 04/26/19 04/26/19 04/26/19 00:00 01:00 02:00 Temperature 37.8 C H 37.3 C Heart Rate [ 88 83 90 Monitoring electrodes] Respiratory 13 12 11 L Rate Blood Pressure Blood Pressure 122/59 L 106/67 113/63 [Left Brachial artery] O2 Saturation 99 98 97 04/26/19 04/26/19 04/26/19 03:00 04:00 04:40 Temperature 37.3 C 37.3 C Heart Rate [ 86 81 106 H Monitoring electrodes] Respiratory 12 12 16 Rate Blood Pressure Blood Pressure 95/55 L 91/59 L 129/78 [Left Brachial artery] O2 Saturation 95 95 97 04/26/19 04/26/19 04/26/19 04:45 05:00 05:15 Temperature 37 C Heart Rate [ 95 101 H 100 Monitoring electrodes] Respiratory 16 17 14 Rate Blood Pressure Blood Pressure 129/78 132/96 H 130/70 [Left Brachial artery] O2 Saturation 98 99 100 04/26/19 04/26/19 04/26/19 05:36 05:50 06:00 Temperature 37 C Heart Rate [ 97 92 88 Monitoring electrodes] Respiratory 13 12 12 Rate Blood Pressure Blood Pressure 111/61 97/63 97/57 L [Left Brachial artery] O2 Saturation 100 100 99 04/26/19 04/26/19 04/26/19 06:07 07:00 08:00 Temperature 37 C Heart Rate [ 83 89 Monitoring electrodes] Respiratory 12 15 Rate Blood Pressure 97/57 L Blood Pressure 103/68 124/79 [Left Brachial artery] O2 Saturation 100 100 04/26/19 04/26/19 09:00 10:00 Temperature 37.3 C Heart Rate [ 90 103 H Monitoring electrodes] Respiratory 15 16 Rate Blood Pressure Blood Pressure 113/67 132/70 H [Left Brachial artery] O2 Saturation 97 99 Oxygen O2 Source Non-rebreather mask I&O (Last 24 Hrs): Intake and Output Totals x24h 04/24/19 04/25/19 04/26/19 23:59 23:59 23:59 Intake Total 3313.500 5008.500 2312.50 Output Total 3253 402 5462 Balance 2308.500 4113.500 752.50 General: Alert, Oriented x3 HEENT: Mucous membr. moist/pink, Other (Poor dentition) Neck: Supple, No JVD Neuro: Alert, Other (Left facial droop, decreased sensation left upper extremity, 0/5 motor strength left upper extremity, hyporeflexic left upper extremity, left leg was not tested.) Cardiovascular: No murmurs, Other (Irreg) Respiratory: No respiratory distress, Rhonchi Abdomen: Soft Extremities: Other (2+ edema of leg and forearms) - Results Results: Laboratory Results WBC 9.7 x10^3/uL (4.8-10.8) 04/25/19 11:40 RBC 3.38 10^6/uL (4.70-6.10) L 04/25/19 11:40 Hgb 9.8 g/dL (14.0-18.0) L 04/25/19 11:40 Hct 30.2 % (42.0-52.0) L 04/25/19 11:40 MCV 89.3 fL (80.0-94.0) 04/25/19 11:40 MCH 29.0 pg (27.0-31.0) 04/25/19 11:40 MCHC 32.5 g/dL (32.0-36.0) 04/25/19 11:40 RDW 16.7 % (12.0-15.0) H 04/25/19 11:40 Plt Count 135 10^3/uL (130-450) 04/25/19 11:40 MPV 8.5 fL (7.4-11.4) 04/25/19 11:40 Neut # (Auto) Not Reportable 04/25/19 11:40 Lymph # (Auto) Not Reportable 04/25/19 11:40 [place] # (Auto) Not Reportable 04/25/19 11:40 Eos # (Auto) Not Reportable 04/25/19 11:40 Baso # (Auto) Not Reportable 04/25/19 11:40 Absolute Nucleated RBC Not Reportable 04/25/19 11:40 Total Counted 100 04/25/19 11:40 Band Neuts % (Manual) 3 % (0-10) 04/25/19 11:40 Reactive Lymphs % (Man) 8 % 04/25/19 11:40 Abnorm Lymph % (Manual) 0 % 04/25/19 11:40 Metamyelocytes % 1 % (-0) H 04/25/19 11:40 Myelocytes % 7 % (-0) H 04/25/19 11:40 Nucleated RBC % Not Reportable 04/25/19 11:40 Neutrophils # (Manual) 6.9 10^3/uL (1.5-6.6) H 04/25/19 11:40 Lymphocytes # (Manual) 1.5 10^3/uL (1.5-3.5) 04/25/19 11:40 Monocytes # (Manual) 0.5 10^3/uL (0.0-1.0) 04/25/19 11:40 Eosinophils # (Manual) 0.1 10^3/uL (0-0.7) 04/25/19 11:40 Basophils # (Manual) 0.0 10^3/uL (0-0.1) 04/25/19 11:40 Differential Comment MANUAL DIFFERENTIAL 04/25/19 11:40 PT 70.6 secs (9.9-12.6) H 04/26/19 04:20 INR 6.9 (0.8-1.2) H* 04/26/19 04:20 Bld Gas Analysis Time 0502 04/26/19 04:54 Sample Site RIGHT RADIAL 04/26/19 04:54 ABG pH 7.28 (7.35-7.45) L 04/26/19 04:54 ABG pCO2 38 mmHg (34-45) 04/26/19 04:54 ABG pO2 54 mmHg (80-100) L* 04/26/19 04:54 ABG HCO3 17.5 mmol/L (22.0-26.0) L 04/26/19 04:54 ABG Total CO2 18.6 MMOL/L (21.0-29.0) L 04/26/19 04:54 ABG O2 Saturation 85 % (94-98) L* 04/26/19 04:54 ABG Base Excess -8.6 mmol/L (-2.0-3.0) L 04/26/19 04:54 Kirk Test POSITIVE 04/26/19 04:54 O2 Delivery Device NON REBREATHER MASK 04/26/19 04:54 O2 Liters/Min 15.00 LPM 04/26/19 04:54 FiO2 100.00 04/26/19 04:54 Sodium 135 mmol/L (135-145) 04/26/19 04:20 Potassium 4.4 mmol/L (3.5-5.0) 04/26/19 04:20 Chloride 108 mmol/L (101-111) 04/26/19 04:20 Carbon Dioxide 17 mmol/L (21-32) L 04/26/19 04:20 Anion Gap 10.0 (6-13) 04/26/19 04:20 BUN 11 mg/dL (6-20) 04/26/19 04:20 Creatinine 0.6 mg/dL (0.6-1.2) 04/26/19 04:20 Estimated GFR (MDRD) 132 (>89) 04/26/19 04:20 Glucose 150 mg/dL (70-100) H 04/26/19 04:20 Lactic Acid 1.6 mmol/L (0.5-2.2) 04/25/19 11:40 Calcium 7.8 mg/dL (8.5-10.3) L 04/26/19 04:20 Phosphorus 2.7 mg/dL (2.5-4.6) 04/26/19 04:20 Magnesium 1.9 mg/dL (1.7-2.8) 04/26/19 04:20 Iron 41 ug/dL (45-182) L 04/23/19 04:35 TIBC 130 ug/dL (250-450) L 04/23/19 04:35 % Saturation 31 % (20-50) 04/23/19 04:35 Transferrin 93 mg/dL (180-329) L 04/23/19 04:35 Total Bilirubin 0.9 mg/dL (0.2-1.0) 04/24/19 05:25 Direct Bilirubin 0.3 mg/dL (0.1-0.5) 04/24/19 05:25 AST 23 IU/L (10-42) 04/24/19 05:25 ALT 12 IU/L (10-60) 04/24/19 05:25 Alkaline Phosphatase 323 IU/L (42-121) H 04/24/19 05:25 Total Creatine Kinase 93 IU/L (22-269) 04/24/19 05:25 Troponin I High Sens 508.2 ng/L (2.3-19.7) H* 04/24/19 19:10 Total Protein 5.2 g/dL (6.7-8.2) L 04/24/19 05:25 Albumin 2.1 g/dL (3.2-5.5) L 04/26/19 04:20 Globulin 2.9 g/dL (2.1-4.2) 04/24/19 05:25 Albumin/Globulin Ratio 1.1 (1.0-2.2) 04/21/19 09:05 Cevx-8-Snxbomcs 0.3 g/dL (0.4-0.6) L 04/22/19 05:00 Svfj-0-Inmhppcj 0.3 g/dL (0.2-0.5) 04/22/19 05:00 Lipase 21 U/L (22-51) L 04/21/19 09:05 Prostate Specific Ag > 1210.000 ng/mL (0.000-2.000) H 04/22/19 05:00 Free PSA > 160.000 ng/mL (0.16-2.81) H 04/22/19 05:00 % Free PSA Calc Not Reportable 04/22/19 05:00 Vitamin B12 651 pg/mL (180-914) 04/23/19 04:35 Folate 7.39 ng/mL (5.90 - >24.8) 04/23/19 04:35 Urine Color YELLOW 04/25/19 11:37 Urine Clarity HAZY (CLEAR) 04/25/19 11:37 Urine pH 5.5 PH (5.0-7.5) 04/25/19 11:37 Ur Specific [place] >=1.030 (1.002-1.030) H 04/25/19 11:37 Urine Protein TRACE mg/dL (NEGATIVE) 04/25/19 11:37 Urine Glucose (UA) NEGATIVE mg/dL (NEGATIVE) 04/25/19 11:37 Urine Ketones 40 mg/dL (NEGATIVE) H 04/25/19 11:37 Urine Occult Blood MODERATE (NEGATIVE) H 04/25/19 11:37 Urine Nitrite NEGATIVE (NEGATIVE) 04/25/19 11:37 Urine Bilirubin NEGATIVE (NEGATIVE) 04/25/19 11:37 Urine Urobilinogen 1 (NORMAL) E.U./dL (NORMAL) 04/25/19 11:37 Ur Leukocyte Esterase MODERATE (NEGATIVE) H 04/25/19 11:37 Urine RBC 11-25 /HPF (0-5) H 04/25/19 11:37 Urine WBC >25 /HPF (0-3) H 04/25/19 11:37 Ur Squamous Epith Cells RARE Squamous (<= Few) 04/25/19 11:37 Amorphous Sediment Rare /LPF 04/21/19 12:10 Urine Bacteria Moderate /HPF (None Seen) H 04/25/19 11:37 Ur Microscopic Review INDICATED 04/21/19 12:10 Urine Culture Comments INDICATED 04/25/19 11:37 Nasal Screen MRSA (PCR) NEGATIVE (NEGATIVE) 04/24/19 17:30 KEHINDE & SPEP Interp SEE NOTE 04/22/19 05:00 Total Protein (KEHINDE) 4.9 g/dL (6.1-8.1) L 04/22/19 05:00 Albumin (KEHINDE) 2.5 g/dL (3.8-4.8) L 04/22/19 05:00 Qzazp-3-Yvmefeiwk KEHINDE 0.7 g/dL (0.2-0.3) H 04/22/19 05:00 Otfau-1-Agepomjjb KEHINDE 0.8 g/dL (0.5-0.9) 04/22/19 05:00 Gamma Globulins (KEHINDE) 0.4 g/dL (0.8-1.7) L 04/22/19 05:00 Hepatitis A IgM Ab NON-REACTIVE (NON-REACTIVE) 04/22/19 05:00 Hep Bs Antigen NON-REACTIVE (NON-REACTIVE) 04/22/19 05:00 Hep B Core IgM Ab NON-REACTIVE (NON-REACTIVE) 04/22/19 05:00 Hepatitis C Antibody NON-REACTIVE (NON-REACTIVE) 04/22/19 05:00 Hep C Ab Signal/Cutoff 0.00 (<1.00) 04/22/19 05:00 Influenza A (Rapid) Negative (Negative) 04/25/19 12:17 Influenza B (Rapid) Negative (Negative) 04/25/19 12:17 - Procedures Procedures: Procedures ENDO RECTUM POLYPECTOMY (03/04/13) ENDOSC POLYPECTOMY OF LG INTEST (03/04/13) VENOUS CATHETERIZATION NEC (10/28/13)
[2019-04-26] MEDS ORDERED: METOPROLOL SUCCINATE 50 MG TABLET PO SCH (13:03)
[2019-04-26] MEDS: FUROSEMIDE 20 MG/2 ML VIAL IVP SCH (14:22)
[2019-04-26] MEDS: diltiaZEM INJ 125 MG in SODIUM CHLORIDE 0.9% 100ML 100 ML IV SCH (19:21)
[2019-04-26] MEDS: HYDROmorphone 0.5 MG/0.5 ML SYRINGE IVP PRN (19:57)
[2019-04-26] MEDS: guaiFENesin 600 MG TABLET PO SCH (20:49)
[2019-04-26] MEDS: ATORVASTATIN 40 MG TABLET PO SCH (20:49)
[2019-04-27] MEDS: SODIUM CHLORIDE FLUSH 0.9% 10 ML SYRINGE IVP PRN ×2 (02:20→05:47)
[2019-04-27] MEDS: HYDROmorphone 0.5 MG/0.5 ML SYRINGE IVP PRN ×3 (02:20→19:57)
[2019-04-27] MEDS: PIPERACILLIN/TAZOBACTAM 3.375 GM in SODIUM CHLORIDE 0.9% MINIBAG 100 ML IV SCH (04:16)
[2019-04-27 05:41] LABS: CALCIUM 7.3 mg/dL (8.5-10.3); CREATININE 0.7 mg/dL (0.6-1.2); MAGNESIUM 1.7 mg/dL (1.7-2.8)
[2019-04-27] MEDS: FUROSEMIDE 20 MG/2 ML VIAL IVP SCH (05:47)
[2019-04-27 08:07] LABS: VANCOMYCIN,TROUGH 16.6 ug/mL (10.0-20.0)
[2019-04-27] MEDS: VANCOMYCIN INJ 1 GM in SODIUM CHLORIDE 0.9% 250 ML IV SCH (08:25)
[2019-04-27] MEDS ORDERED: LEVALBUTEROL 1.25 MG/3 ML NEB INH PRN (08:37)
--- NOTE | 2019-04-27 08:45 | PROVIDER PROGRESS NOTE ---
Assessment/Plan - Problem List (1) Hypotension Assessment/Plan: This is likely related to the aggressive diuresis he has had for 2 days with Lasix IV twice daily. The white blood count is normal, he does not appear septic. We will stop the iv Lasix. Decrease the spironolactone. Spread out the Toprol from 50 mg daily to 25 twice daily. We will try not to restart IV fluids because of the edema. (2) Acute CVA (cerebrovascular accident) Assessment/Plan: The left leg has some spontaneous motion. We will start to get out of bed to chair. Continue with passive range of motion and restart physical therapy/Occupational Therapy. Continue with daily baby aspirin. Recheck the elevated (yesterday) INR regarding starting NOAC or resuming Coumadin. Carotid Dopplers to be ordered. He has a right BKA. His L leg was partially affected by the stroke He will need PT and OT rehab at a SNF. Social work has given the patient and [facility][1] SNF choices. (3) UTI (urinary tract infection) Assessment/Plan: The day of the stroke, he also spiked a fever, was fully cultured. There was no infiltrate on chest x-ray. Urinalysis was abnormal and his urine culture is now growing a gram-negative héctor. Will stop the vancomycin and change the Zosyn to Ceftriaxone. Await urine culture results and sensitivities to adjust antibiotics further (4) Systolic heart failure Assessment/Plan: LVEF was noted to be 40% when he needed transfer into the ICU for A. fib with RVR. He has been on beta-blockers, dose increased for rate control for A. fib. Spironolactone and Lasix have been used. Lisinopril has been started. We will adjust med doses down because of hypotension. In addition we will add Xopenex for respiratory care since he has the appearance of a COPDer (5) Chronic a-fib Assessment/Plan: Diltiazem drip is been off for over 24 hours. He needed beta-ger at a higher dose for rate control. We will spread out the beta-ger because of hypotension. He may need Dig for rate control, due to low BP and will not use Cardizem therefore. Check daily INR. Resume Coumadin or start NOAC, when INR lower (6) Urinary retention Assessment/Plan: A Tam catheter was placed before he was transferred into the ICU. The urinary retention and now Tam gives him risk factors for the UTI. (7) Hypokalemia Assessment/Plan: Related to high dose diuretic use. Replace. Follow BMP daily (8) Odynophagia Assessment/Plan: Painful swallowing was the reason he admitted to poor p.o. food and liquid intake at home for the past 2 weeks. This is been worked up with barium swallow fluoroscopy earlier this admission. There was plan for EGD earlier further evaluation but the EGD was canceled when he went into rapid A. fib and he is moved to the ICU. The EGD has not been rescheduled yet because of the acute stroke and fever. He did pass a swallowing evaluation (after the stroke) and is able to tolerate soft food such as pudding, and has been ordered to have soft food and nectar thick liquids. (9) Severe protein-calorie malnutrition Assessment/Plan: Patient has had intake of less than 50% of recommended for 2 weeks or more and a weight loss of 6.7% in the past 1 month. He has been bedridden and has sign ificantly reduced functional capacity. Appreciate registered dietitian and speech therapist inputs (10) Bony metastasis Assessment/Plan: This is a new finding from imaging done at admission. There were no lymph nodes amenable to biopsy by IR. He had some blood test done to search for a primary site. The PSA is elevated. The SPEP is normal. Further evaluation is planned with Oncology consultation (11) Anemia Qualifiers: Anemia type: iron deficiency Assessment/Plan: Oral iron replacement has been restarted (12) Elevated PSA Assessment/Plan: The prostate may be his site of primary malignancy and prostatic enlargement may be leading to the urinary retention. He and his DPOA were still interested in evaluating the malignancy with Oncology consultation. (13) Hx of right BKA Assessment/Plan: As per Hx His L leg was also partially affected by the stroke He will need PT and OT rehab at a SNF - Current Meds Current Meds: Current Medications Generic Name Dose Route Start Last Admin Trade Name Freq PRN Reason Stop Dose Admin Aspirin 162 mg 04/25/19 15:30 04/26/19 08:58 Ecotrin PO 162 mg DAILY CHARLENE Administration Atorvastatin Calcium 80 mg 04/25/19 17:00 04/26/19 20:49 Lipitor PO 80 mg QPM CHARLENE Administration Guaifenesin 600 mg 04/26/19 21:00 04/26/19 20:49 Mucinex PO 600 mg BID CHARLENE Administration Hydromorphone HCl 0.5 mg 04/26/19 11:02 04/27/19 02:20 Dilaudid Inj Syringe IVP 0.5 mg Q6HR PRN Administration PAIN Vancomycin HCl 1 gm/ Sodium 250 mls @ 167 mls/hr 04/26/19 08:00 04/27/19 08:25 Chloride IV 167 mls/hr Q12H CHARLENE Administration Piperacillin Sod/Tazobactam 100 mls @ 25 mls/hr 04/26/19 10:00 04/27/19 08:25 Sod 3.375 gm/ Sodium Chloride IV Infused Q6H CHARLENE Infusion Mineral Oil 1 applic 04/21/19 22:42 04/25/19 18:43 Cavilon TOP 1 applic PRN PRN Administration Skin Care Ondansetron HCl 4 mg 04/21/19 12:00 04/23/19 23:45 Zofran Inj IVP 4 mg Q6HR PRN Administration Nausea / Vomiting Sodium Chloride 10 ml 04/21/19 12:00 04/27/19 05:47 Normal Saline Flush 0.9% IVP 10 ml PRN PRN Administration NEEDED PER PROVIDER ORDERS Sodium Chloride 10 ml 04/21/19 17:00 04/26/19 19:46 Normal Saline Flush 0.9% IVP 10 ml 0100,0900,1700 CHARLENE Administration - Lab Result Fish Bone Diagrams: 04/25/19 11:40 04/27/19 05:10 - Additional Planning My Orders: My Active Orders 04/26/19 08:00 Vancomycin Inj [Vancomycin] 1 gm Sodium Chloride 0.9% [Normal Saline 0.9%] 250 ml IV Q12H 04/26/19 11:02 HYDROmorphone INJ SYRINGE [Dilaudid Inj Syringe] 0.5 mg IVP Q6HR PRN 04/26/19 21:00 guaiFENesin [Mucinex] 600 mg PO BID 04/27/19 WHOLE BLOOD PT/INR [COAG] Stat 04/27/19 07:50 VANCOMYCIN TROUGH [CHEM] Timed 04/27/19 08:27 Out of Bed Twice today [RC] 1300,1900 04/27/19 08:37 Nebulizer/MDI Tx. [RC] 1-2XD Resp Teach Nebulizer/MDI [RC] .ONCE Levalbuterol [Xopenex] 1.25 mg INH Q4H PRN 04/27/19 09:00 Metoprolol Succinate [Toprol Xl] 25 mg PO BID Potassium Chlor 10 Meq/100 ml [Potassium Chloride] 10 meq in 100 ml IV Q1H Spironolactone [Aldactone] 12.5 mg PO DAILY lisinopriL [Zestril] 2.5 mg PO DAILY 04/27/19 12:00 Ferrous Sulfate Liquid [Feosol Liquid] 300 mg PO DAILYWM 04/28/19 05:00 BMP - BASIC METABOLIC PANEL [CHEM] DAILYLAB PT WITH INR [COAG] DAILYLAB 04/29/19 05:00 BMP - BASIC METABOLIC PANEL [CHEM] DAILYLAB PT WITH INR [COAG] DAILYLAB 04/30/19 05:00 BMP - BASIC METABOLIC PANEL [CHEM] DAILYLAB PT WITH INR [COAG] DAILYLAB 05/01/19 05:00 BMP - BASIC METABOLIC PANEL [CHEM] DAILYLAB PT WITH INR [COAG] DAILYLAB Subjective - Subjective Patient Reports: Resting Comfortably, No Complaints Nursing Reports: Other (Poor apetite) Objective Vital Signs: Vital Signs - 24 hr 04/26/19 04/26/19 04/26/19 09:00 10:00 11:00 Temperature 37.3 C 37.2 C Heart Rate [ 90 103 H 88 Monitoring electrodes] Respiratory 15 16 17 Rate Blood Pressure 113/67 132/70 H 121/69 [Left Brachial artery] O2 Saturation 97 99 99 04/26/19 04/26/19 04/26/19 12:00 13:00 14:00 Temperature 37.4 C 37.7 C H Heart Rate [ 97 98 98 Monitoring electrodes] Respiratory 17 13 19 Rate Blood Pressure 132/72 H 120/63 135/73 H [Left Brachial artery] O2 Saturation 99 98 98 04/26/19 04/26/19 04/26/19 15:00 16:00 17:00 Temperature 38 C H 38 C H Heart Rate [ 97 106 H 95 Monitoring electrodes] Respiratory 21 20 16 Rate Blood Pressure 132/60 H 123/60 118/69 [Left Brachial artery] O2 Saturation 99 99 98 04/26/19 04/26/19 04/26/19 18:00 19:00 20:00 Temperature 38 C H 37.8 C H Heart Rate [ 110 H 115 H 89 Monitoring electrodes] Respiratory 22 24 13 Rate Blood Pressure 124/68 131/83 H 96/60 [Left Brachial artery] O2 Saturation 99 98 95 04/26/19 04/26/19 04/26/19 21:00 22:00 23:00 Temperature 37.7 C H 37.9 C H 37.5 C Heart Rate [ 98 89 87 Monitoring electrodes] Respiratory 14 15 16 Rate Blood Pressure 105/59 L 91/62 107/69 [Left Brachial artery] O2 Saturation 100 99 96 04/27/19 04/27/19 04/27/19 00:00 01:00 02:00 Temperature 37.3 C 37.8 C H Heart Rate [ 106 H 106 H 105 H Monitoring electrodes] Respiratory 18 20 14 Rate Blood Pressure 98/60 90/61 107/63 [Left Brachial artery] O2 Saturation 97 95 94 04/27/19 04/27/19 04/27/19 03:00 04:00 05:00 Temperature 37.5 C 37.5 C Heart Rate [ 106 H 97 89 Monitoring electrodes] Respiratory 153 H 16 14 Rate Blood Pressure 92/57 L 91/58 L 99/67 [Left Brachial artery] O2 Saturation 94 95 95 04/27/19 04/27/19 04/27/19 06:00 07:00 08:00 Temperature 37.3 C 37.1 C 37.2 C Heart Rate [ 100 104 H 102 H Monitoring electrodes] Respiratory 16 14 16 Rate Blood Pressure 115/60 94/60 88/65 L [Left Brachial artery] O2 Saturation 95 97 96 Oxygen O2 Source Room air I&O (Last 24 Hrs): Intake and Output Totals x24h 04/25/19 04/26/19 04/27/19 23:59 23:59 23:59 Intake Total 5008.500 3103.500 333 Output Total 895 4525 710 Balance 4113.500 -261.500 -377 General: Alert HEENT: Other (dry lips, poor dentition) Neck: Supple, No JVD Neuro: Alert, Other (Left-sided neglect, left facial droop present, 0/5 left arm strength, spontaneous motions of left leg seen twice today.) Cardiovascular: No murmurs Respiratory: No respiratory distress, Breath sounds nml Abdomen: Soft Genitourinary: Other (Has a Tam) Extremities: Other (2+ left arm edema) - Results Results: Laboratory Results WBC 9.7 x10^3/uL (4.8-10.8) 04/25/19 11:40 RBC 3.38 10^6/uL (4.70-6.10) L 04/25/19 11:40 Hgb 9.8 g/dL (14.0-18.0) L 04/25/19 11:40 Hct 30.2 % (42.0-52.0) L 04/25/19 11:40 MCV 89.3 fL (80.0-94.0) 04/25/19 11:40 MCH 29.0 pg (27.0-31.0) 04/25/19 11:40 MCHC 32.5 g/dL (32.0-36.0) 04/25/19 11:40 RDW 16.7 % (12.0-15.0) H 04/25/19 11:40 Plt Count 135 10^3/uL (130-450) 04/25/19 11:40 MPV 8.5 fL (7.4-11.4) 04/25/19 11:40 Neut # (Auto) Not Reportable 04/25/19 11:40 Lymph # (Auto) Not Reportable 04/25/19 11:40 Irwin # (Auto) Not Reportable 04/25/19 11:40 Eos # (Auto) Not Reportable 04/25/19 11:40 Baso # (Auto) Not Reportable 04/25/19 11:40 Absolute Nucleated RBC Not Reportable 04/25/19 11:40 Total Counted 100 04/25/19 11:40 Band Neuts % (Manual) 3 % (0-10) 04/25/19 11:40 Reactive Lymphs % (Man) 8 % 04/25/19 11:40 Abnorm Lymph % (Manual) 0 % 04/25/19 11:40 Metamyelocytes % 1 % (-0) H 04/25/19 11:40 Myelocytes % 7 % (-0) H 04/25/19 11:40 Nucleated RBC % Not Reportable 04/25/19 11:40 Neutrophils # (Manual) 6.9 10^3/uL (1.5-6.6) H 04/25/19 11:40 Lymphocytes # (Manual) 1.5 10^3/uL (1.5-3.5) 04/25/19 11:40 Monocytes # (Manual) 0.5 10^3/uL (0.0-1.0) 04/25/19 11:40 Eosinophils # (Manual) 0.1 10^3/uL (0-0.7) 04/25/19 11:40 Basophils # (Manual) 0.0 10^3/uL (0-0.1) 04/25/19 11:40 Differential Comment MANUAL DIFFERENTIAL 04/25/19 11:40 PT 70.6 secs (9.9-12.6) H 04/26/19 04:20 INR 6.9 (0.8-1.2) H* 04/26/19 04:20 Whole Blood INR 5.3 (0.8-1.2) H* 04/26/19 15:15 Bld Gas Analysis Time 0502 04/26/19 04:54 Sample Site RIGHT RADIAL 04/26/19 04:54 ABG pH 7.28 (7.35-7.45) L 04/26/19 04:54 ABG pCO2 38 mmHg (34-45) 04/26/19 04:54 ABG pO2 54 mmHg (80-100) L* 04/26/19 04:54 ABG HCO3 17.5 mmol/L (22.0-26.0) L 04/26/19 04:54 ABG Total CO2 18.6 MMOL/L (21.0-29.0) L 04/26/19 04:54 ABG O2 Saturation 85 % (94-98) L* 04/26/19 04:54 ABG Base Excess -8.6 mmol/L (-2.0-3.0) L 04/26/19 04:54 Kirk Test POSITIVE 04/26/19 04:54 O2 Delivery Device NON REBREATHER MASK 04/26/19 04:54 O2 Liters/Min 15.00 LPM 04/26/19 04:54 FiO2 100.00 04/26/19 04:54 Sodium 134 mmol/L (135-145) L 04/27/19 05:10 Potassium 3.4 mmol/L (3.5-5.0) L 04/27/19 05:10 Chloride 107 mmol/L (101-111) 04/27/19 05:10 Carbon Dioxide 20 mmol/L (21-32) L 04/27/19 05:10 Anion Gap 7.0 (6-13) 04/27/19 05:10 BUN 11 mg/dL (6-20) 04/27/19 05:10 Creatinine 0.7 mg/dL (0.6-1.2) 04/27/19 05:10 Estimated GFR (MDRD) 110 (>89) 04/27/19 05:10 Glucose 117 mg/dL (70-100) H 04/27/19 05:10 Lactic Acid 1.6 mmol/L (0.5-2.2) 04/25/19 11:40 Calcium 7.3 mg/dL (8.5-10.3) L 04/27/19 05:10 Phosphorus 3.0 mg/dL (2.5-4.6) 04/27/19 05:10 Magnesium 1.7 mg/dL (1.7-2.8) 04/27/19 05:10 Iron 41 ug/dL (45-182) L 04/23/19 04:35 TIBC 130 ug/dL (250-450) L 04/23/19 04:35 % Saturation 31 % (20-50) 04/23/19 04:35 Transferrin 93 mg/dL (180-329) L 04/23/19 04:35 Total Bilirubin 0.9 mg/dL (0.2-1.0) 04/24/19 05:25 Direct Bilirubin 0.3 mg/dL (0.1-0.5) 04/24/19 05:25 AST 23 IU/L (10-42) 04/24/19 05:25 ALT 12 IU/L (10-60) 04/24/19 05:25 Alkaline Phosphatase 323 IU/L (42-121) H 04/24/19 05:25 Total Creatine Kinase 93 IU/L (22-269) 04/24/19 05:25 Troponin I High Sens 508.2 ng/L (2.3-19.7) H* 04/24/19 19:10 Total Protein 5.2 g/dL (6.7-8.2) L 04/24/19 05:25 Albumin 2.0 g/dL (3.2-5.5) L 04/27/19 05:10 Globulin 2.9 g/dL (2.1-4.2) 04/24/19 05:25 Albumin/Globulin Ratio 1.1 (1.0-2.2) 04/21/19 09:05 Stif-3-Imvywcsk 0.3 g/dL (0.4-0.6) L 04/22/19 05:00 Imuo-7-Kytdintp 0.3 g/dL (0.2-0.5) 04/22/19 05:00 Lipase 21 U/L (22-51) L 04/21/19 09:05 Prostate Specific Ag > 1210.000 ng/mL (0.000-2.000) H 04/22/19 05:00 Free PSA > 160.000 ng/mL (0.16-2.81) H 04/22/19 05:00 % Free PSA Calc Not Reportable 04/22/19 05:00 Vitamin B12 651 pg/mL (180-914) 04/23/19 04:35 Folate 7.39 ng/mL (5.90 - >24.8) 04/23/19 04:35 Urine Color YELLOW 04/25/19 11:37 Urine Clarity HAZY (CLEAR) 04/25/19 11:37 Urine pH 5.5 PH (5.0-7.5) 04/25/19 11:37 Ur Specific Ono >=1.030 (1.002-1.030) H 04/25/19 11:37 Urine Protein TRACE mg/dL (NEGATIVE) 04/25/19 11:37 Urine Glucose (UA) NEGATIVE mg/dL (NEGATIVE) 04/25/19 11:37 Urine Ketones 40 mg/dL (NEGATIVE) H 04/25/19 11:37 Urine Occult Blood MODERATE (NEGATIVE) H 04/25/19 11:37 Urine Nitrite NEGATIVE (NEGATIVE) 04/25/19 11:37 Urine Bilirubin NEGATIVE (NEGATIVE) 04/25/19 11:37 Urine Urobilinogen 1 (NORMAL) E.U./dL (NORMAL) 04/25/19 11:37 Ur Leukocyte Esterase MODERATE (NEGATIVE) H 04/25/19 11:37 Urine RBC 11-25 /HPF (0-5) H 04/25/19 11:37 Urine WBC >25 /HPF (0-3) H 04/25/19 11:37 Ur Squamous Epith Cells RARE Squamous (<= Few) 04/25/19 11:37 Amorphous Sediment Rare /LPF 04/21/19 12:10 Urine Bacteria Moderate /HPF (None Seen) H 04/25/19 11:37 Ur Microscopic Review INDICATED 04/21/19 12:10 Urine Culture Comments INDICATED 04/25/19 11:37 Nasal Screen MRSA (PCR) NEGATIVE (NEGATIVE) 04/24/19 17:30 Vancomycin Trough 16.6 ug/mL (10.0-20.0) 04/27/19 07:50 KEHINDE & SPEP Interp SEE NOTE 04/22/19 05:00 Total Protein (KEHINDE) 4.9 g/dL (6.1-8.1) L 04/22/19 05:00 Albumin (KEHINDE) 2.5 g/dL (3.8-4.8) L 04/22/19 05:00 Ocjlo-9-Uuzuxublc KEHINDE 0.7 g/dL (0.2-0.3) H 04/22/19 05:00 Fjmgf-2-Bxpsapikd KEHINDE 0.8 g/dL (0.5-0.9) 04/22/19 05:00 Gamma Globulins (KEHINDE) 0.4 g/dL (0.8-1.7) L 04/22/19 05:00 Hepatitis A IgM Ab NON-REACTIVE (NON-REACTIVE) 04/22/19 05:00 Hep Bs Antigen NON-REACTIVE (NON-REACTIVE) 04/22/19 05:00 Hep B Core IgM Ab NON-REACTIVE (NON-REACTIVE) 04/22/19 05:00 Hepatitis C Antibody NON-REACTIVE (NON-REACTIVE) 04/22/19 05:00 Hep C Ab Signal/Cutoff 0.00 (<1.00) 04/22/19 05:00 Influenza A (Rapid) Negative (Negative) 04/25/19 12:17 Influenza B (Rapid) Negative (Negative) 04/25/19 12:17 - Procedures Procedures: Procedures ENDO RECTUM POLYPECTOMY (03/04/13) ENDOSC POLYPECTOMY OF LG INTEST (03/04/13) VENOUS CATHETERIZATION NEC (10/28/13)
[2019-04-27] MEDS: lisinopriL 5 MG TABLET PO SCH (09:09)
[2019-04-27] MEDS: guaiFENesin 600 MG TABLET PO SCH ×2 (09:09→21:43)
[2019-04-27] MEDS: ASPIRIN EC 81 MG TABLET PO SCH (09:09)
[2019-04-27] MEDS: METOPROLOL SUCCINATE 25 MG TABLET PO SCH ×2 (09:10→21:43)
[2019-04-27] MEDS: SODIUM CHLORIDE FLUSH 0.9% 10 ML SYRINGE IVP SCH ×3 (09:28→22:15)
[2019-04-27] MEDS: cefTRIAXone 1 GM in SODIUM CHLORIDE 0.9% MINIBAG 100 ML IV SCH (10:05)
[2019-04-27] MEDS: POTASSIUM CHLOR 10 MEQ/100 ML 10 MEQ/100 ML BAG IV SCH ×2 (10:35→11:55)
[2019-04-27] MEDS ORDERED: METOPROLOL SUCCINATE 50 MG TABLET PO SCH (12:00)
[2019-04-27] MEDS: SPIRONOLACTONE 25 MG TABLET PO SCH (12:00)
[2019-04-27] MEDS ORDERED: SPIRONOLACTONE 25 MG TABLET PO SCH (14:00)
[2019-04-27] MEDS: FERROUS SULFATE 300 MG/5 ML UDC PO SCH (17:27)
--- NOTE | 2019-04-27 19:36 | Ultrasound Report ---
Reason: R hemispheric CVA Procedure Date: 04/27/2019 Accession Number: [id number] / [id number] Procedure: US - Carotid Doppler Complete CPT Code: Final Report FULL RESULT: EXAM: BILATERAL CAROTID AND VERTEBRAL ARTERY DUPLEX DOPPLER ULTRASOUND: EXAM DATE: 04/27/2019 03:57 PM CLINICAL HISTORY: Cerebrovascular accident. COMPARISON: CAROTID DOPPLER COMPLETE 06/04/2017 3:27 PM. TECHNIQUE: Grayscale imaging, color Doppler, and duplex spectral Doppler were used to evaluate the carotid and vertebral arteries bilaterally. Static images were obtained. FINDINGS: Examination was technically difficult due to extensive calcification of the carotid bifurcations obscuring large portions of the right internal carotid artery in the proximal and distal segments. The mid right internal carotid artery visualized demonstrates no significant elevation in velocity or ratio, however, evaluation is technically limited. The left internal carotid artery demonstrates moderately elevated peak systolic velocities and ratios. Elevated velocities in bilateral external carotid arteries are seen suggesting moderate stenosis. Normal antegrade flow is present in bilateral vertebral arteries. VELOCITIES (cm/sec): Right CCA mid: PSV 72.2 cm/sec CCA dist: PSV 45.1 cm/sec ICA prox: Calcified shadowing ICA mid: PSV 111.9 cm/sec, EDV 38.5 cm/sec ICA dist: Unable to visualize ECA: PSV 252.9 cm/sec Vert: PSV 121.1 cm/sec ICA/CCA: 1.5 Left CCA mid: PSV 70.9 cm/sec CCA dist: PSV 63.8 cm/sec ICA prox: PSV 78.5 cm/sec, EDV 34.0 cm/sec ICA mid: PSV 21.8 cm/sec, EDV 76.1 cm/sec ICA dist: PSV 139.4 cm/sec, EDV 47.9 cm/sec ECA: PSV 279.1 cm/sec Vert: PSV 69.6 cm/sec ICA/CCA: 3.1 ICA diameter stenosis: Right: Unable to assess by velocity or NASCET criteria. Left: 50-69% by velocity and <70% by NASCET criteria. IMPRESSION: 1. Technically limited exam with extensive dense calcified bilateral carotid artery plaquing obscuring portions of the right internal carotid artery. 2. In the right carotid artery there are no elevated carotid artery velocity in the visualized mid internal carotid artery segment. Other segments are obscured. 3. In the left carotid artery there is elevated velocities and ratios suggesting 50-69% stenosis. 4. Normal antegrade flow is present in bilateral vertebral arteries. General Recommendations: Stenosis =50% ICA - Follow-up ultrasound 6-12 months Stenosis <50% ICA - High Risk Patient with plaque - Follow-up ultrasound 1-2 years Normal Study but High Risk Patient - Follow-up ultrasound 3-5 years Management recommendations and diagnostic criteria are based on current IAC endorsed standards in Carotid Artery Stenosis: Grayscale and Doppler Ultrasound Diagnosis. Validated velocity measurements with angiographic measurements and velocity criteria are extrapolated from diameter data as defined by the Society of Radiologists in Ultrasound Consensus Conference Radiology 2003; 229;340-346. RADIA
[2019-04-27] MEDS: MIN OIL/DIMETHICON/COCONUT OIL 92 GM TUBE TOP PRN (20:15)
[2019-04-27] MEDS: ATORVASTATIN 40 MG TABLET PO SCH (21:41)
[2019-04-28] MEDS: SODIUM CHLORIDE FLUSH 0.9% 10 ML SYRINGE IVP PRN ×2 (02:32→06:27)
[2019-04-28] MEDS: HYDROmorphone 0.5 MG/0.5 ML SYRINGE IVP PRN ×2 (02:32→09:00)
[2019-04-28 05:21] LABS: INR 1.4 (0.8-1.2); PT - PROTHROMBIN TIME 15.8 secs (9.9-12.6)
[2019-04-28 05:23] LABS: CALCIUM 7.6 mg/dL (8.5-10.3); CREATININE 0.6 mg/dL (0.6-1.2); MAGNESIUM 1.7 mg/dL (1.7-2.8); PHOSPHORUS 3.2 mg/dL (2.5-4.6)
[2019-04-28] MEDS: SODIUM CHLORIDE 0.9% 500 ML IV PRN (06:27)
[2019-04-28] MEDS ORDERED: MAGNESIUM SULFATE 2 GRAM 2 GM/50 ML BAG IV ONE (07:00)
--- NOTE | 2019-04-28 08:29 | PROVIDER PROGRESS NOTE ---
Assessment/Plan - Problem List (1) Hypotension Assessment/Plan: Patient is still running blood pressures of 90 to100 systolic. Yesterday his IV bid Lasix was stopped, Spironolactone dose decreased, and Topro l XL spread out to bid, in order to allow higher blood pressure. Will stagger his LULI inhibitor to noon. Will stop narcotic, use other pain meds Remain in the ICU today, since the heart rate is high in A. fib, along with this low BP. (2) Acute CVA (cerebrovascular accident) Assessment/Plan: On the morning of his stroke, his last known well was at 0500 then at 0900 was found somnolent, had left facial droop and left side neglect and left arm and leg weakness. A STAT CT of the brain showed a large right sided stroke. He was not a candidate for TPA because he was on Coumadin and on that day he had an INR of 3.2. He has had slight improvement in his stroke scale. He is starting to get range of motion by PT and his nurse. This will be a difficult rehab because he has no right leg from a BKA, the left leg has mild to moderate weakness from the strok e, his right arm has good strength, but the left arm is completely densely paretic. He is now on antiplatelet agent: 2 baby aspirin daily. The Coumadin was stopped, and there will be a plan for 2 weeks of no anticoagulation (per UpToDate) because of the large territory of stroke seen on brain imaging (therefore risk of hemorrhagic conversion). In addition, the day before his stroke the INR was 1.5, but on day of stroke INR was 3.2. There could be consideration of him being a Coumadin failure, and therefore to use a DOAC, when anticoagulation is restarted in 12 days from today. Continue with PT rehab. He may be a candidate for inpatient rehab. Will order OT to start rehab, as well. (3) Urinary tract infection due to Klebsiella species Assessment/Plan: He spiked a fever on the day of his stroke. He was fully cultured, CXR had no infiltrate, but U/A was abnormal. He was started on empiric iv Vanco and iv Pip/Tazo. When the urine started growing a Gram neg, those antibx were stopped and he was put on iv ceftriaxone, awaiting culture results. The urine culture has been identified today and grown Klebsiella Ozaenae, it is not an ESBL-producing species. It was sens to Pip/Tazo and to Ceftriaxone. Will change his IV ceftriaxone to oral TMP-Sulfa. Continue probiotic. Plan a 21-day course of treatment, for good prostate penetration. (4) Systolic heart failure Assessment/Plan: The day before his stroke, he had been moved into the ICU for IV Cardizem drip to treat A. fib with RVR (rate 180, which had occurred when he was getting Versed and ketamine to sedate him for an EGD). An Echo was done then that showed LVEF 40% which is a new finding for him. The chest x-ray was also consistent with pulmonary edema that day, and he received 3 days of IV bid Lasix. IV Cardizem has been weaned to off and in its place he is on Toprol-XL for rate control. He has also been started on the lowest dose of LULI inhibitor and on Spironolactone, decreased from 25 mg to 12.5 mg daily, due to low BPs. He is on no Lasix currently because he is euvolemic, pulmonary edema has cleared and he is on room air, and runs low blood pressures. When he had A. fib with RVR, the troponins were cycled and were elevated (409, 508) but in a flat pattern, which is consistent with his CHF, and not an acute NV. (5) Chronic a-fib Assessment/Plan: He had been on low-dose beta-ger and Coumadin at admission. The Coumadin was stopped when he had the stroke. The plan is for at least 2 weeks of holding any anticoagulation (per UpToDate) since it is a very large stroke territory by brain imaging. He is on aspirin daily now. His heart rate remains over 100 for parts of each day. Will give IV Dig 250 mcg today. Check Dig level in a.m. He may need intermittent Dig dosing, following a Dig level because it will be affected by his antibiotics. (6) Urinary retention Assessment/Plan: Atm catheter was started for this reason, even before transfer into the ICU (7) Odynophagia Assessment/Plan: This patient was felt to be weak from poor p.o. intake the prior 2 weeks, very little solids and liquids. He claimed that the reason for decreased intake was "pain with swallowing". He already had barium swallow with fluoroscopy evaluating his upper esophagus, earlier this admission. The EGD was to be done next, and had to be canceled because of developing A. fib with RVR during induction of conscious sedation. He did pass a swallowing evaluation (after the stroke) and is able to tolerate soft food such as pudding, and has been ordered to have soft food and nectar thick liquids. The pt can now be rescheduled for an EGD, as he is clinically more stable. I re-ordered a gen Surgery consult for EGD and spoke to Dr. Deejay Ellis regarding this. (8) Severe protein-calorie malnutrition Assessment/Plan: Patient has had intake of less than 50% of recommended for 2 weeks or more and a weight loss of 6.7% in the past 1 month. He has been bedridden and has significantly reduced functional capacity. Appreciate registered dietitian and speech therapist inputs He describes no appetite currently. He does swallow pudding, unga frozen yogurt popsicles and takes his meds with applesauce. (9) Bony metastasis Assessment/Plan: This is a new finding from imaging done at admission. There were no lymph nodes amenable to biopsy by IR. He had some blood test done to search for a primary site. The PSA is elevated. The SPEP is normal. Further evaluation is planned with Oncology consultation These may be the source of his neck pain and back pain. (10) Anemia Qualifiers: Anemia type: iron deficiency Assessment/Plan: Is back on his oral iron liquid supplements daily (11) Elevated PSA Assessment/Plan: The prostate may be his site of primary malignancy and prostatic enlargement may be leading to the urinary retention. He and his DPOA were still interested in evaluating the malignancy with Oncology consultation. (12) Hx of right BKA Assessment/Plan: This was done in December 2018 after having osteomyelitis and PVD of the right lower extremity. When he did not have generalized weakness, he was able to transfer from bed to chair. Since being admitted he has been progressively weaker and never was able to transfer from bed to chair. After suffering his stroke, he has become severely debilitated. (13) Neck pain Assessment/Plan: He has had low back, scapular and neck pain for months. He is getting Dilaudid for treatment here. The Dilaudid may be giving him excessive sedation. Will change to either iV Toradol or Motrin for management (with Pepcid), or iv Tylenol and heating pads to the neck - Current Meds Current Meds: Current Medications Generic Name Dose Route Start Last Admin Trade Name Freq PRN Reason Stop Dose Admin Aspirin 162 mg 04/25/19 15:30 04/27/19 09:09 Ecotrin PO 162 mg DAILY CHARLENE Administration Atorvastatin Calcium 80 mg 04/25/19 17:00 04/27/19 21:41 Lipitor PO 80 mg QPM CHARLENE Administration Ferrous Sulfate 300 mg 04/27/19 12:00 04/27/19 17:27 Feosol Liquid PO 300 mg DAILYWM CHARLENE Administration Guaifenesin 600 mg 04/26/19 21:00 04/27/19 21:43 Mucinex PO 600 mg BID CHARLENE Administration Hydromorphone HCl 0.5 mg 04/26/19 11:02 04/28/19 02:32 Dilaudid Inj Syringe IVP 0.5 mg Q6HR PRN Administration PAIN Ceftriaxone Sodium 1 gm/ 100 mls @ 200 mls/hr 04/27/19 09:00 04/27/19 10:35 Sodium Chloride IV Infused DAILY CHARLENE Infusion Sodium Chloride 500 mls @ 0 mls/hr 04/28/19 06:06 04/28/19 06:27 Normal Saline 0.9% IV 30 mls/hr Q24H PRN Administration TKO RATE TKO Lisinopril 2.5 mg 04/27/19 09:00 04/27/19 09:09 Zestril PO 2.5 mg DAILY CHARLENE Administration Metoprolol Succinate 25 mg 04/27/19 09:00 04/27/19 21:43 Toprol Xl PO 25 mg BID CHARLENE Administration Mineral Oil 1 applic 04/21/19 22:42 04/27/19 20:15 Cavilon TOP 1 applic PRN PRN Administration Skin Care Ondansetron HCl 4 mg 04/21/19 12:00 04/23/19 23:45 Zofran Inj IVP 4 mg Q6HR PRN Administration Nausea / Vomiting Sodium Chloride 10 ml 04/21/19 12:00 04/28/19 06:27 Normal Saline Flush 0.9% IVP 10 ml PRN PRN Administration NEEDED PER PROVIDER ORDERS Sodium Chloride 10 ml 04/21/19 17:00 04/27/19 22:15 Normal Saline Flush 0.9% IVP 10 ml 0100,0900,1700 CHARLENE Administration Spironolactone 12.5 mg 04/27/19 09:00 04/27/19 12:00 Aldactone PO 12.5 mg DAILY CHARLENE Administration - Lab Result Fish Bone Diagrams: 04/25/19 11:40 04/28/19 04:37 - Additional Planning My Orders: My Active Orders 04/27/19 08:27 Out of Bed Twice today [RC] 1300,1900 04/27/19 08:37 Nebulizer/MDI Tx. [RC] .PRN Levalbuterol [Xopenex] 1.25 mg INH RTQ4H PRN 04/27/19 09:00 Metoprolol Succinate [Toprol Xl] 25 mg PO BID Spironolactone [Aldactone] 12.5 mg PO DAILY cefTRIAXone [Rocephin] 1 gm Sodium Chloride 0.9% Minibag [Normal Saline 0.9% Minibag] 100 ml IV DAILY lisinopriL [Zestril] 2.5 mg PO DAILY 04/27/19 12:00 Ferrous Sulfate Liquid [Feosol Liquid] 300 mg PO DAILYWM 04/28/19 06:06 Sodium Chloride 0.9% [Normal Saline 0.9%] 500 ml IV Q24H 04/28/19 08:30 Digoxin Inj [Lanoxin Inj] 250 mcg IVP ONCE ONE 04/29/19 05:00 BMP - BASIC METABOLIC PANEL [CHEM] DAILYLAB MAGNESIUM [CHEM] DAILYLAB PHOSPHORUS [CHEM] DAILYLAB PT WITH INR [COAG] DAILYLAB 04/30/19 05:00 BMP - BASIC METABOLIC PANEL [CHEM] DAILYLAB PT WITH INR [COAG] DAILYLAB 05/01/19 05:00 BMP - BASIC METABOLIC PANEL [CHEM] DAILYLAB PT WITH INR [COAG] DAILYLAB Subjective - Subjective Patient Reports: Resting Comfortably, Fatigue Objective Vital Signs: Vital Signs - 24 hr 04/27/19 04/27/19 04/27/19 09:00 10:55 11:00 Temperature 37.4 C Heart Rate Heart Rate [ 108 H 99 Monitoring electrodes] Heart Rate [ 71 Supine] Respiratory 21 20 Rate Respiratory 16 Rate [Without Activity] Blood Pressure 102/54 L 112/67 [Left Brachial artery] Blood Pressure 96/58 L [Supine] O2 Saturation 97 99 O2 Saturation [ 96 Without Activity] 04/27/19 04/27/19 04/27/19 12:00 15:00 15:56 Temperature 36.6 C Heart Rate Heart Rate [ 102 H 84 Monitoring electrodes] Heart Rate [ Supine] Respiratory 22 15 Rate Respiratory Rate [Without Activity] Blood Pressure 117/77 110/55 L [Left Brachial artery] Blood Pressure [Supine] O2 Saturation 99 99 O2 Saturation [ Without Activity] 04/27/19 04/27/19 04/27/19 18:00 19:00 19:54 Temperature 37.1 C 36.5 C Heart Rate 95 Heart Rate [ 105 H 105 H 96 Monitoring electrodes] Heart Rate [ Supine] Respiratory 19 20 17 Rate Respiratory Rate [Without Activity] Blood Pressure 87/56 L [Left Brachial artery] Blood Pressure [Supine] O2 Saturation 97 96 98 O2 Saturation [ Without Activity] 04/27/19 04/27/19 04/27/19 21:00 22:00 23:00 Temperature Heart Rate Heart Rate [ 96 97 97 Monitoring electrodes] Heart Rate [ Supine] Respiratory 18 14 15 Rate Respiratory Rate [Without Activity] Blood Pressure 100/62 94/62 98/74 [Left Brachial artery] Blood Pressure [Supine] O2 Saturation 98 97 96 O2 Saturation [ Without Activity] 04/28/19 04/28/19 04/28/19 00:00 01:00 02:00 Temperature 37.1 C Heart Rate Heart Rate [ 105 H 105 H 109 H Monitoring electrodes] Heart Rate [ Supine] Respiratory 21 16 16 Rate Respiratory Rate [Without Activity] Blood Pressure 99/65 105/64 98/63 [Left Brachial artery] Blood Pressure [Supine] O2 Saturation 97 96 94 O2 Saturation [ Without Activity] 04/28/19 04/28/19 04/28/19 03:00 04:00 05:00 Temperature 37.4 C Heart Rate Heart Rate [ 99 102 H 104 H Monitoring electrodes] Heart Rate [ Supine] Respiratory 13 14 14 Rate Respiratory Rate [Without Activity] Blood Pressure 92/56 L 99/59 L 104/62 [Left Brachial artery] Blood Pressure [Supine] O2 Saturation 94 95 96 O2 Saturation [ Without Activity] 04/28/19 04/28/19 06:00 07:00 Temperature Heart Rate Heart Rate [ 103 H 88 Monitoring electrodes] Heart Rate [ Supine] Respiratory 15 15 Rate Respiratory Rate [Without Activity] Blood Pressure 106/61 99/61 [Left Brachial artery] Blood Pressure [Supine] O2 Saturation 97 98 O2 Saturation [ Without Activity] Oxygen O2 Source [Without Activity] Room air O2 Source Room air I&O (Last 24 Hrs): Intake and Output Totals x24h 04/26/19 04/27/19 04/28/19 23:59 23:59 23:59 Intake Total 3103.583 1338 50 Output Total 3365 1376 183 Balance -261.417 -38 -133 General: Other (Lethargic) HEENT: Other (Dry lips and oral mucosa) Neck: Supple, No JVD Neuro: Other (Lethargic, L arm 0/5 strength, L leg 1/5 strength) Cardiovascular: No murmurs, Other (Irreg irreg) Respiratory: No respiratory distress, Breath sounds nml Abdomen: Soft Genitourinary: Other (Has a Tam) Extremities: Other (R BKA with clean stump, L arm has 2+ edema, R hand has 1+ edema) - Results Results: Laboratory Results WBC 9.7 x10^3/uL (4.8-10.8) 04/25/19 11:40 RBC 3.38 10^6/uL (4.70-6.10) L 04/25/19 11:40 Hgb 9.8 g/dL (14.0-18.0) L 04/25/19 11:40 Hct 30.2 % (42.0-52.0) L 04/25/19 11:40 MCV 89.3 fL (80.0-94.0) 04/25/19 11:40 MCH 29.0 pg (27.0-31.0) 04/25/19 11:40 MCHC 32.5 g/dL (32.0-36.0) 04/25/19 11:40 RDW 16.7 % (12.0-15.0) H 04/25/19 11:40 Plt Count 135 10^3/uL (130-450) 04/25/19 11:40 MPV 8.5 fL (7.4-11.4) 04/25/19 11:40 Neut # (Auto) Not Reportable 04/25/19 11:40 Lymph # (Auto) Not Reportable 04/25/19 11:40 [place] # (Auto) Not Reportable 04/25/19 11:40 Eos # (Auto) Not Reportable 04/25/19 11:40 Baso # (Auto) Not Reportable 04/25/19 11:40 Absolute Nucleated RBC Not Reportable 04/25/19 11:40 Total Counted 100 04/25/19 11:40 Band Neuts % (Manual) 3 % (0-10) 04/25/19 11:40 Reactive Lymphs % (Man) 8 % 04/25/19 11:40 Abnorm Lymph % (Manual) 0 % 04/25/19 11:40 Metamyelocytes % 1 % (-0) H 04/25/19 11:40 Myelocytes % 7 % (-0) H 04/25/19 11:40 Nucleated RBC % Not Reportable 04/25/19 11:40 Neutrophils # (Manual) 6.9 10^3/uL (1.5-6.6) H 04/25/19 11:40 Lymphocytes # (Manual) 1.5 10^3/uL (1.5-3.5) 04/25/19 11:40 Monocytes # (Manual) 0.5 10^3/uL (0.0-1.0) 04/25/19 11:40 Eosinophils # (Manual) 0.1 10^3/uL (0-0.7) 04/25/19 11:40 Basophils # (Manual) 0.0 10^3/uL (0-0.1) 04/25/19 11:40 Differential Comment MANUAL DIFFERENTIAL 04/25/19 11:40 PT 15.8 secs (9.9-12.6) H 04/28/19 04:37 INR 1.4 (0.8-1.2) H 04/28/19 04:37 Whole Blood INR 1.4 (0.8-1.2) H 04/27/19 09:05 Bld Gas Analysis Time 0502 04/26/19 04:54 Sample Site RIGHT RADIAL 04/26/19 04:54 ABG pH 7.28 (7.35-7.45) L 04/26/19 04:54 ABG pCO2 38 mmHg (34-45) 04/26/19 04:54 ABG pO2 54 mmHg (80-100) L* 04/26/19 04:54 ABG HCO3 17.5 mmol/L (22.0-26.0) L 04/26/19 04:54 ABG Total CO2 18.6 MMOL/L (21.0-29.0) L 04/26/19 04:54 ABG O2 Saturation 85 % (94-98) L* 04/26/19 04:54 ABG Base Excess -8.6 mmol/L (-2.0-3.0) L 04/26/19 04:54 Kirk Test POSITIVE 04/26/19 04:54 O2 Delivery Device NON REBREATHER MASK 04/26/19 04:54 O2 Liters/Min 15.00 LPM 04/26/19 04:54 FiO2 100.00 04/26/19 04:54 Sodium 137 mmol/L (135-145) 04/28/19 04:37 Potassium 3.5 mmol/L (3.5-5.0) 04/28/19 04:37 Chloride 106 mmol/L (101-111) 04/28/19 04:37 Carbon Dioxide 21 mmol/L (21-32) 04/28/19 04:37 Anion Gap 10.0 (6-13) 04/28/19 04:37 BUN 13 mg/dL (6-20) 04/28/19 04:37 Creatinine 0.6 mg/dL (0.6-1.2) 04/28/19 04:37 Estimated GFR (MDRD) 132 (>89) 04/28/19 04:37 Glucose 111 mg/dL (70-100) H 04/28/19 04:37 Lactic Acid 1.6 mmol/L (0.5-2.2) 04/25/19 11:40 Calcium 7.6 mg/dL (8.5-10.3) L 04/28/19 04:37 Phosphorus 3.2 mg/dL (2.5-4.6) 04/28/19 04:37 Magnesium 1.7 mg/dL (1.7-2.8) 04/28/19 04:37 Iron 41 ug/dL (45-182) L 04/23/19 04:35 TIBC 130 ug/dL (250-450) L 04/23/19 04:35 % Saturation 31 % (20-50) 04/23/19 04:35 Transferrin 93 mg/dL (180-329) L 04/23/19 04:35 Total Bilirubin 0.9 mg/dL (0.2-1.0) 04/24/19 05:25 Direct Bilirubin 0.3 mg/dL (0.1-0.5) 04/24/19 05:25 AST 23 IU/L (10-42) 04/24/19 05:25 ALT 12 IU/L (10-60) 04/24/19 05:25 Alkaline Phosphatase 323 IU/L (42-121) H 04/24/19 05:25 Total Creatine Kinase 93 IU/L (22-269) 04/24/19 05:25 Troponin I High Sens 508.2 ng/L (2.3-19.7) H* 04/24/19 19:10 Total Protein 5.2 g/dL (6.7-8.2) L 04/24/19 05:25 Albumin 2.0 g/dL (3.2-5.5) L 04/28/19 04:37 Globulin 2.9 g/dL (2.1-4.2) 04/24/19 05:25 Albumin/Globulin Ratio 1.1 (1.0-2.2) 04/21/19 09:05 Cpgh-5-Xmkvkbvy 0.3 g/dL (0.4-0.6) L 04/22/19 05:00 Fzyv-6-Nyzbzhni 0.3 g/dL (0.2-0.5) 04/22/19 05:00 Lipase 21 U/L (22-51) L 04/21/19 09:05 Prostate Specific Ag > 1210.000 ng/mL (0.000-2.000) H 04/22/19 05:00 Free PSA > 160.000 ng/mL (0.16-2.81) H 04/22/19 05:00 % Free PSA Calc Not Reportable 04/22/19 05:00 Vitamin B12 651 pg/mL (180-914) 04/23/19 04:35 Folate 7.39 ng/mL (5.90 - >24.8) 04/23/19 04:35 Urine Color YELLOW 04/25/19 11:37 Urine Clarity HAZY (CLEAR) 04/25/19 11:37 Urine pH 5.5 PH (5.0-7.5) 04/25/19 11:37 Ur Specific [place] >=1.030 (1.002-1.030) H 04/25/19 11:37 Urine Protein TRACE mg/dL (NEGATIVE) 04/25/19 11:37 Urine Glucose (UA) NEGATIVE mg/dL (NEGATIVE) 04/25/19 11:37 Urine Ketones 40 mg/dL (NEGATIVE) H 04/25/19 11:37 Urine Occult Blood MODERATE (NEGATIVE) H 04/25/19 11:37 Urine Nitrite NEGATIVE (NEGATIVE) 04/25/19 11:37 Urine Bilirubin NEGATIVE (NEGATIVE) 04/25/19 11:37 Urine Urobilinogen 1 (NORMAL) E.U./dL (NORMAL) 04/25/19 11:37 Ur Leukocyte Esterase MODERATE (NEGATIVE) H 04/25/19 11:37 Urine RBC 11-25 /HPF (0-5) H 04/25/19 11:37 Urine WBC >25 /HPF (0-3) H 04/25/19 11:37 Ur Squamous Epith Cells RARE Squamous (<= Few) 04/25/19 11:37 Amorphous Sediment Rare /LPF 04/21/19 12:10 Urine Bacteria Moderate /HPF (None Seen) H 04/25/19 11:37 Ur Microscopic Review INDICATED 04/21/19 12:10 Urine Culture Comments INDICATED 04/25/19 11:37 Nasal Screen MRSA (PCR) NEGATIVE (NEGATIVE) 04/24/19 17:30 Last Dose Date UNK 04/27/19 07:50 Last Dose Time UNK 04/27/19 07:50 Vancomycin Trough 16.6 ug/mL (10.0-20.0) 04/27/19 07:50 KEHINDE & SPEP Interp SEE NOTE 04/22/19 05:00 Total Protein (KEHINDE) 4.9 g/dL (6.1-8.1) L 04/22/19 05:00 Albumin (KEHINDE) 2.5 g/dL (3.8-4.8) L 04/22/19 05:00 Rmnaj-1-Myuoexrkn KEHINDE 0.7 g/dL (0.2-0.3) H 04/22/19 05:00 Fxxuk-3-Vmtwokcvx KEHINDE 0.8 g/dL (0.5-0.9) 04/22/19 05:00 Gamma Globulins (KEHINDE) 0.4 g/dL (0.8-1.7) L 04/22/19 05:00 Hepatitis A IgM Ab NON-REACTIVE (NON-REACTIVE) 04/22/19 05:00 Hep Bs Antigen NON-REACTIVE (NON-REACTIVE) 04/22/19 05:00 Hep B Core IgM Ab NON-REACTIVE (NON-REACTIVE) 04/22/19 05:00 Hepatitis C Antibody NON-REACTIVE (NON-REACTIVE) 04/22/19 05:00 Hep C Ab Signal/Cutoff 0.00 (<1.00) 04/22/19 05:00 Influenza A (Rapid) Negative (Negative) 04/25/19 12:17 Influenza B (Rapid) Negative (Negative) 04/25/19 12:17 - Procedures Procedures: Procedures ENDO RECTUM POLYPECTOMY (03/04/13) ENDOSC POLYPECTOMY OF LG INTEST (03/04/13) VENOUS CATHETERIZATION NEC (10/28/13)
[2019-04-28] MEDS: FERROUS SULFATE 300 MG/5 ML UDC PO SCH (08:30)
[2019-04-28] MEDS ORDERED: DIGOXIN 500 MCG/2 ML AMP IVP ONE (08:30)
[2019-04-28] MEDS: guaiFENesin 600 MG TABLET PO SCH ×2 (08:31→21:39)
[2019-04-28] MEDS: lisinopriL 5 MG TABLET PO SCH ×2 (08:31→14:41)
[2019-04-28] MEDS: METOPROLOL SUCCINATE 25 MG TABLET PO SCH ×2 (08:32→21:38)
[2019-04-28] MEDS: ASPIRIN EC 81 MG TABLET PO SCH (08:32)
[2019-04-28] MEDS: cefTRIAXone 1 GM in SODIUM CHLORIDE 0.9% MINIBAG 100 ML IV SCH (08:33)
[2019-04-28] MEDS: SPIRONOLACTONE 25 MG TABLET PO SCH (08:52)
[2019-04-28] MEDS: SODIUM CHLORIDE FLUSH 0.9% 10 ML SYRINGE IVP SCH ×2 (08:53→17:43)
--- NOTE | 2019-04-28 12:27 | HISTORY & PHYSICAL EXAMINATION ---
History - Past Medical History Cardiovascular: reports: Coronary artery disease, Peripheral Vascular Disease, PR, Atrial fibrillation Respiratory: reports: Pneumonia (Treated as pneumonia when he presented with syncope and fevers and elevated white cell count in October 2013. In reading the discharge summary there was some doubt on the diagnosis of pneumonia.) Neuro: reports: CVA Endocrine/Autoimmune: reports: None GI: reports: Colon polyps (A bout of loose stools resulted in a colonoscopy February 2013. 7 polyps and diverticulosis were found on that scope. Pathology showed tubular adenomas or hyperplastic changes.) : reports: None HEENT: reports: Chronic hearing loss Psych: reports: None Musculoskeletal: reports: Gout, Other Derm: reports: Psoriasis MRSA Hx?: No Other Past Medical History: eosinophilia. h/o rotator cuff injury. bony metastases with unknown primary cancer - Past Surgical History Ortho: reports: Amputation Cardiovascular: reports: Coronary stent HEENT: reports: Tracheostomy - Family & Social History Family History Comment/Other: of complications of a stroke in her 80s. Dad of brain aneurysm at the age of 60. 2 brothers and a sister. One brother is incredibly active and still rollerblades all around [place]. One brother lives in [place]. Stop smoking and got plump. His sister is healthy and okay but living in a half-way because of her . She lives there to keep him company. Of his 3 children's they are healthy Living arrangement: At home Living Situation: Alone Social History Notes: Lives in senior subsidized housing here at [facility]. Moved there in January after his amputation. Lives alone. from his second since 1989. Main support system is Lele Neff who is his power of regulatory attorney. He started smoking at the age of 9 and smoked 1-1/2 packs/day and sometimes up to 2 packs/day until the year 2009. He used to be a heavy drinker where he would admittedly drink a sixpack a day. Then with time he get down to 3 a day. Then 1 a day. Now he just does not have a taste for it at all and he has not had anything to drink in over a month and a half. His children live in [place]. He talks to him on the phone off and on. The person is closest to in his life and he loves them fiercely is his little brother Chencho who lives in [place]. - Substance History Use: Uses substance without health or social issues: NONE Abuse: Recurrent use of substance despite neg consequences: NONE Dependence: Experiences withdrawal or developed tolerances: NONE - POLST Patient has POLST: No POLST Status: DNR (Not only does not want to be resuscitated he is adamant that he never wants to receive blood transfusions. He is not a Jehovah just has deep philosophical beliefs about getting someone else's blood.) Meds/Allgy - Home Medications Home Medications: Ambulatory Orders Medication Instructions Recorded Confirmed Furosemide 20 mg PO DAILY 04/21/19 04/21/19 Lisinopril [Zestril] 10 mg PO DAILY 04/21/19 04/21/19 Metoprolol Succinate 12.5 - 25 mg PO DAILY 04/21/19 04/21/19 Warfarin [Coumadin] 2.5 mg PO SUMOTUTHFR 04/21/19 04/21/19 Warfarin [Coumadin] 5 mg PO WESA 04/21/19 04/21/19 - Allergies Allergies/Adverse Reactions: Allergies Allergy/AdvReac Type Severity Reaction Status Date / Time Kkfhiwc-Xqg-Fhq Reductase AdvReac Dizziness Verified 04/21/19 08:51 Inhibitor Exam - Vital Signs Vital Signs: Vital Signs x48h Temp Pulse Pulse Resp BP Pulse Ox 04/28/19 12:00 85 14 101/56 L 95 04/28/19 09:28 100 04/28/19 09:00 93 13 99/57 L 93 04/28/19 08:00 37.3 C 96 13 117/70 96 04/28/19 07:00 88 15 99/61 98 04/28/19 06:00 103 H 15 106/61 97 04/28/19 05:00 37.4 C 104 H 14 104/62 96 Conclusion/Plan - Lab Results Lab results reviewed: Yes Fish Bones: 04/25/19 11:40 04/28/19 04:37
[2019-04-28] MEDS ORDERED: KETOROLAC 15 MG/ML VIAL IVP PRN (12:59)
[2019-04-28] MEDS ORDERED: ACETAMINOPHEN 1,000 MG/100 ML 100 ML IV PRN (15:42)
--- NOTE | 2019-04-28 16:43 | ADVANCE CARE PLANNING NOTE ---
Advance Care Planning - Planning Encounter Date: 04/28/19 Time: 16:00 Purpose: To determine patient's wishes about specifics problems: cancer management, feeding management, stroke rehab management Parties in Attendance: This Hospitalist discussed those subjects with the patient, who was in his bed, and DPOA (girlfriend) Lele Neff at bedside, and daughter Janie who had just arrived by airplane trip from [place] was in the room. His RN today, Krysten Gregg was also in the room. Decisional Capacity of the Patient: Patient is currently fatigued and drifting off to sleep. When he is awake he understands the topic of discussion. Because of his stroke and current weakness, he communicates minimally but does squeeze with his right hand and nods his head and whispers some sentences. He had told me on the first day of his hospitalization that his DPOA will make decisions for him. - Diagnosis for Encounter (1) Acute CVA (cerebrovascular accident) Summary: Patient had an acute stroke several days ago, he has had some recovery. He has slight left sided neglect, left arm paraplegia, and left leg slightly weak. (2) Odynophagia Summary: He has had trouble swallowing for about 2 to 3 weeks, describes painful swallowing. A swallowing eval after the stroke showed that he can take soft foods and nectar-thick liquids without aspirating. There is yet an EGD to be done to complete the work-up of cause of painful swallowing. (3) Severe protein-calorie malnutrition Summary: He has had a significant weight loss because of the 2 to 3 weeks of poor p.o. intake. His DPOA is bringing in foods that he likes, but he claims he has no appetite. - Encounter Subjective/Patient's Story: This patient is an ex-smoker, has a history of chronic A. fib on Coumadin, prior lacunar TIAs who presented with a fall and laying on the floor for 6 hours, with rhabdomyolysis and was admitted for IV hydration. 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 Work-up for this showed a very high PSA level but he has had no biopsies or other cancer work-up yet. Patient was starting to get physical therapy to work on transfers from bed to chair, when rhabdo had improved, but was becoming more weak, and was refusing PT. He then had sudden onset of rapid A. fib (during sedation for an EGD), was moved to the ICU, needed Cardizem drip, then had an acute stroke affecting his left side, had a fever which has been determined to be from UTI. He has been very somnolent after getting narcotics which she requests for chronic back and neck pain. Objective/Medical Story: Medical story as above and today I discussed what is in store for him regarding his wishes for work-up of the bony metastasis, and what stroke rehab involves. Because of mets to the bone, there is a roughly estimated prognosis of 1 to 2 years since the primary is unknown. He may need chemotherapy which could give him alopecia, anorexia, nausea and vomiting, higher risk of infections. He may need seeds implanted in the prostate. He will need to work daily or twice a day and a fpc facility for strengthening of the left arm and left leg which could take several months for improvement. Goals of Care: The patient nodded his understanding with the above discussion. The DPOA asked certain specific questions which were answered to her satisfaction. A POLST was signed in 2013 indicating that he wants natural , wants to be DNR and DNI, wants selective treatments such as antibiotics are okay and does not want PEG tube feedings. I discussed the possibility of needing a PEG tube in case the EGD finds a tumor or other obstruction and for improved nutrition in order to recover from the stroke, infection and to undergo cancer evaluation and management. The DPOA stated that, at this juncture, she would want him to have improved chances of recovery with better nutrition including getting a PEG tube. The DPOA agreed with the requests for DNR, DNI, and selective treatment. Patient does want to proceed with work-up for cancer, the DPOA is strongly supporting this. Patient did not voice any wishes regarding returning home, living in a snf with 24-hour caregivers or his overall wishes regarding quality of life. Plan: A new POLST form will be needed with a change in the refusal of PEG tube. The new POLST will say DNR, DNI but allow trial of PEG tube and allow long-term PEG tube if necessary. Proceed with antibiotic treatment of the UTI/prostatitis for 3 weeeks. Proceed with the EGD for work-up of painful swallowing. Proceed with discharge to SNF for stroke rehab. Proceed with outpatient oncology evaluation and management. Code Status: Do Not Attempt Resuscitation Time spent on advance care plannin min
[2019-04-28] MEDS: SACCHAROMYCES BOULARDII 250 MG CAPSULE PO SCH (17:32)
--- NOTE | 2019-04-28 17:32 | PROVIDER PROGRESS NOTE ---
Assessment/Plan - Problem List (1) Dysphagia due to recent cerebrovascular accident (CVA) Assessment/Plan: likely due to dysmotility related to CVA; markedly impairing his ability to maintain his nutritional status and with no improvement over the past 3 days per speech pathologist. Rec: PEG tube placement. Will schedule for 04/30/19. Discussed with Dr. Londono who agrees. (2) Odynophagia Assessment/Plan: Etiology unclear, appears to have now resolved following CVA, although dysphagia is worse. DDX includes thrush, GERD, neoplasm, EoE, etc. Plan: EGD on 04/30/19 - Current Meds Current Meds: Current Medications Generic Name Dose Route Start Last Admin Trade Name Freq PRN Reason Stop Dose Admin Aspirin 162 mg 04/25/19 15:30 04/28/19 08:32 Ecotrin PO 162 mg DAILY CHARLENE Administration Atorvastatin Calcium 80 mg 04/25/19 17:00 04/27/19 21:41 Lipitor PO 80 mg QPM CHARLENE Administration Ferrous Sulfate 300 mg 04/27/19 12:00 04/28/19 08:30 Feosol Liquid PO 300 mg DAILYWM CHARLENE Administration Guaifenesin 600 mg 04/26/19 21:00 04/28/19 08:31 Mucinex PO 600 mg BID CHARLENE Administration Ceftriaxone Sodium 1 gm/ 100 mls @ 200 mls/hr 04/27/19 09:00 04/28/19 09:17 Sodium Chloride IV 04/28/19 23:00 Infused DAILY CHARLENE Infusion Sodium Chloride 500 mls @ 0 mls/hr 04/28/19 06:06 04/28/19 06:27 Normal Saline 0.9% IV 30 mls/hr Q24H PRN Administration TKO RATE TKO Acetaminophen 100 mls @ 400 mls/hr 04/28/19 15:42 04/28/19 16:46 Ofirmev IV Infused Q6HR PRN Infusion PAIN Lisinopril 2.5 mg 04/28/19 12:00 04/28/19 14:41 Zestril PO Not Given 1200 CHARLENE Metoprolol Succinate 25 mg 04/27/19 09:00 04/28/19 08:32 Toprol Xl PO 25 mg BID CHARLENE Administration Mineral Oil 1 applic 04/21/19 22:42 04/27/19 20:15 Cavilon TOP 1 applic PRN PRN Administration Skin Care Ondansetron HCl 4 mg 04/21/19 12:00 04/23/19 23:45 Zofran Inj IVP 4 mg Q6HR PRN Administration Nausea / Vomiting Sodium Chloride 10 ml 04/21/19 12:00 04/28/19 06:27 Normal Saline Flush 0.9% IVP 10 ml PRN PRN Administration NEEDED PER PROVIDER ORDERS Sodium Chloride 10 ml 04/21/19 17:00 04/28/19 08:53 Normal Saline Flush 0.9% IVP 10 ml 0100,0900,1700 CHARLENE Administration Spironolactone 12.5 mg 04/27/19 09:00 04/28/19 08:52 Aldactone PO Not Given DAILY CHARLENE - Lab Result Fish Bone Diagrams: 04/25/19 11:40 04/28/19 04:37 - Diagnostic Imaging Results Diagnostic Imaging Results: Final report reviewed Diagnostic Imaging Results Comments: speech pathology swallowing study from last week prior to CVA showed no oropharyngeal dysmotility. - Additional Planning Condition/Complexity: Guarded Plan Discussed with:: Patient, Other (hospitalist) Time Spent: 31-60 minutes Subjective - Subjective Patient Reports: Resting Comfortably, No Complaints Objective Vital Signs: Vital Signs - 24 hr 04/27/19 04/27/19 04/27/19 18:00 19:00 19:54 Temperature 37.1 C 36.5 C Heart Rate 95 Heart Rate [ 105 H 105 H 96 Monitoring electrodes] Heart Rate [ Supine] Respiratory 19 20 17 Rate Blood Pressure 87/56 L [Left Brachial artery] Blood Pressure [Supine] O2 Saturation 97 96 98 04/27/19 04/27/19 04/27/19 21:00 22:00 23:00 Temperature Heart Rate Heart Rate [ 96 97 97 Monitoring electrodes] Heart Rate [ Supine] Respiratory 18 14 15 Rate Blood Pressure 100/62 94/62 98/74 [Left Brachial artery] Blood Pressure [Supine] O2 Saturation 98 97 96 04/28/19 04/28/19 04/28/19 00:00 01:00 02:00 Temperature 37.1 C Heart Rate Heart Rate [ 105 H 105 H 109 H Monitoring electrodes] Heart Rate [ Supine] Respiratory 21 16 16 Rate Blood Pressure 99/65 105/64 98/63 [Left Brachial artery] Blood Pressure [Supine] O2 Saturation 97 96 94 04/28/19 04/28/19 04/28/19 03:00 04:00 05:00 Temperature 37.4 C Heart Rate Heart Rate [ 99 102 H 104 H Monitoring electrodes] Heart Rate [ Supine] Respiratory 13 14 14 Rate Blood Pressure 92/56 L 99/59 L 104/62 [Left Brachial artery] Blood Pressure [Supine] O2 Saturation 94 95 96 04/28/19 04/28/19 04/28/19 06:00 07:00 08:00 Temperature 37.3 C Heart Rate Heart Rate [ 103 H 88 96 Monitoring electrodes] Heart Rate [ Supine] Respiratory 15 15 13 Rate Blood Pressure 106/61 99/61 117/70 [Left Brachial artery] Blood Pressure [Supine] O2 Saturation 97 98 96 04/28/19 04/28/19 04/28/19 09:00 09:28 10:56 Temperature Heart Rate 100 Heart Rate [ 93 Monitoring electrodes] Heart Rate [ 93 Supine] Respiratory 13 Rate Blood Pressure 99/57 L [Left Brachial artery] Blood Pressure 108/69 [Supine] O2 Saturation 93 04/28/19 04/28/19 12:00 15:00 Temperature 36.9 C Heart Rate Heart Rate [ 85 88 Monitoring electrodes] Heart Rate [ Supine] Respiratory 14 16 Rate Blood Pressure 101/56 L 113/65 [Left Brachial artery] Blood Pressure [Supine] O2 Saturation 95 97 Oxygen O2 Source [Without Activity] Room air O2 Source Room air I&O (Last 24 Hrs): Intake and Output Totals x24h 04/26/19 04/27/19 04/28/19 23:59 23:59 23:59 Intake Total 3103.583 1338 490 Output Total 3365 1376 393 Balance -261.417 -38 97 General: No acute distress Neck: Supple, No JVD Lymphatic: no adenopathy (cervical) Neuro: Focal Deficits (right sided facial droop; left sided paresis), Other (lethargic) Cardiovascular: No murmurs, Other (irreg rate and rhythm) Respiratory: No respiratory distress, Breath sounds nml (anteriorly) Abdomen: Soft, No tenderness, No hepatospenomegaly, No masses, Other (no surgical scars) Extremities: No tenderness/swelling (no calf tenderness) Comments/Notes: observed minimal po intake with assistance of speech pathologist. pt was awake and answered simple questions by nodding his head; no drooling; no speech. - Results Results: Laboratory Results WBC 9.7 x10^3/uL (4.8-10.8) 04/25/19 11:40 RBC 3.38 10^6/uL (4.70-6.10) L 04/25/19 11:40 Hgb 9.8 g/dL (14.0-18.0) L 04/25/19 11:40 Hct 30.2 % (42.0-52.0) L 04/25/19 11:40 MCV 89.3 fL (80.0-94.0) 04/25/19 11:40 MCH 29.0 pg (27.0-31.0) 04/25/19 11:40 MCHC 32.5 g/dL (32.0-36.0) 04/25/19 11:40 RDW 16.7 % (12.0-15.0) H 04/25/19 11:40 Plt Count 135 10^3/uL (130-450) 04/25/19 11:40 MPV 8.5 fL (7.4-11.4) 04/25/19 11:40 Neut # (Auto) Not Reportable 04/25/19 11:40 Lymph # (Auto) Not Reportable 04/25/19 11:40 George # (Auto) Not Reportable 04/25/19 11:40 Eos # (Auto) Not Reportable 04/25/19 11:40 Baso # (Auto) Not Reportable 04/25/19 11:40 Absolute Nucleated RBC Not Reportable 04/25/19 11:40 Total Counted 100 04/25/19 11:40 Band Neuts % (Manual) 3 % (0-10) 04/25/19 11:40 Reactive Lymphs % (Man) 8 % 04/25/19 11:40 Abnorm Lymph % (Manual) 0 % 04/25/19 11:40 Metamyelocytes % 1 % (-0) H 04/25/19 11:40 Myelocytes % 7 % (-0) H 04/25/19 11:40 Nucleated RBC % Not Reportable 04/25/19 11:40 Neutrophils # (Manual) 6.9 10^3/uL (1.5-6.6) H 04/25/19 11:40 Lymphocytes # (Manual) 1.5 10^3/uL (1.5-3.5) 04/25/19 11:40 Monocytes # (Manual) 0.5 10^3/uL (0.0-1.0) 04/25/19 11:40 Eosinophils # (Manual) 0.1 10^3/uL (0-0.7) 04/25/19 11:40 Basophils # (Manual) 0.0 10^3/uL (0-0.1) 04/25/19 11:40 Differential Comment MANUAL DIFFERENTIAL 04/25/19 11:40 PT 15.8 secs (9.9-12.6) H 04/28/19 04:37 INR 1.4 (0.8-1.2) H 04/28/19 04:37 Whole Blood INR 1.4 (0.8-1.2) H 04/27/19 09:05 Bld Gas Analysis Time 0502 04/26/19 04:54 Sample Site RIGHT RADIAL 04/26/19 04:54 ABG pH 7.28 (7.35-7.45) L 04/26/19 04:54 ABG pCO2 38 mmHg (34-45) 04/26/19 04:54 ABG pO2 54 mmHg (80-100) L* 04/26/19 04:54 ABG HCO3 17.5 mmol/L (22.0-26.0) L 04/26/19 04:54 ABG Total CO2 18.6 MMOL/L (21.0-29.0) L 04/26/19 04:54 ABG O2 Saturation 85 % (94-98) L* 04/26/19 04:54 ABG Base Excess -8.6 mmol/L (-2.0-3.0) L 04/26/19 04:54 Kirk Test POSITIVE 04/26/19 04:54 O2 Delivery Device NON REBREATHER MASK 04/26/19 04:54 O2 Liters/Min 15.00 LPM 04/26/19 04:54 FiO2 100.00 04/26/19 04:54 Sodium 137 mmol/L (135-145) 04/28/19 04:37 Potassium 3.5 mmol/L (3.5-5.0) 04/28/19 04:37 Chloride 106 mmol/L (101-111) 04/28/19 04:37 Carbon Dioxide 21 mmol/L (21-32) 04/28/19 04:37 Anion Gap 10.0 (6-13) 04/28/19 04:37 BUN 13 mg/dL (6-20) 04/28/19 04:37 Creatinine 0.6 mg/dL (0.6-1.2) 04/28/19 04:37 Estimated GFR (MDRD) 132 (>89) 04/28/19 04:37 Glucose 111 mg/dL (70-100) H 04/28/19 04:37 Lactic Acid 1.6 mmol/L (0.5-2.2) 04/25/19 11:40 Calcium 7.6 mg/dL (8.5-10.3) L 04/28/19 04:37 Phosphorus 3.2 mg/dL (2.5-4.6) 04/28/19 04:37 Magnesium 1.7 mg/dL (1.7-2.8) 04/28/19 04:37 Iron 41 ug/dL (45-182) L 04/23/19 04:35 TIBC 130 ug/dL (250-450) L 04/23/19 04:35 % Saturation 31 % (20-50) 04/23/19 04:35 Transferrin 93 mg/dL (180-329) L 04/23/19 04:35 Total Bilirubin 0.9 mg/dL (0.2-1.0) 04/24/19 05:25 Direct Bilirubin 0.3 mg/dL (0.1-0.5) 04/24/19 05:25 AST 23 IU/L (10-42) 04/24/19 05:25 ALT 12 IU/L (10-60) 04/24/19 05:25 Alkaline Phosphatase 323 IU/L (42-121) H 04/24/19 05:25 Total Creatine Kinase 93 IU/L (22-269) 04/24/19 05:25 Troponin I High Sens 508.2 ng/L (2.3-19.7) H* 04/24/19 19:10 Total Protein 5.2 g/dL (6.7-8.2) L 04/24/19 05:25 Albumin 2.0 g/dL (3.2-5.5) L 04/28/19 04:37 Globulin 2.9 g/dL (2.1-4.2) 04/24/19 05:25 Albumin/Globulin Ratio 1.1 (1.0-2.2) 04/21/19 09:05 Tgpd-4-Ddbqwutb 0.3 g/dL (0.4-0.6) L 04/22/19 05:00 Oejj-4-Hmmqyjbg 0.3 g/dL (0.2-0.5) 04/22/19 05:00 Lipase 21 U/L (22-51) L 04/21/19 09:05 Prostate Specific Ag > 1210.000 ng/mL (0.000-2.000) H 04/22/19 05:00 Free PSA > 160.000 ng/mL (0.16-2.81) H 04/22/19 05:00 % Free PSA Calc Not Reportable 04/22/19 05:00 Vitamin B12 651 pg/mL (180-914) 04/23/19 04:35 Folate 7.39 ng/mL (5.90 - >24.8) 04/23/19 04:35 Urine Color YELLOW 04/25/19 11:37 Urine Clarity HAZY (CLEAR) 04/25/19 11:37 Urine pH 5.5 PH (5.0-7.5) 04/25/19 11:37 Ur Specific [place] >=1.030 (1.002-1.030) H 04/25/19 11:37 Urine Protein TRACE mg/dL (NEGATIVE) 04/25/19 11:37 Urine Glucose (UA) NEGATIVE mg/dL (NEGATIVE) 04/25/19 11:37 Urine Ketones 40 mg/dL (NEGATIVE) H 04/25/19 11:37 Urine Occult Blood MODERATE (NEGATIVE) H 04/25/19 11:37 Urine Nitrite NEGATIVE (NEGATIVE) 04/25/19 11:37 Urine Bilirubin NEGATIVE (NEGATIVE) 04/25/19 11:37 Urine Urobilinogen 1 (NORMAL) E.U./dL (NORMAL) 04/25/19 11:37 Ur Leukocyte Esterase MODERATE (NEGATIVE) H 04/25/19 11:37 Urine RBC 11-25 /HPF (0-5) H 04/25/19 11:37 Urine WBC >25 /HPF (0-3) H 04/25/19 11:37 Ur Squamous Epith Cells RARE Squamous (<= Few) 04/25/19 11:37 Amorphous Sediment Rare /LPF 04/21/19 12:10 Urine Bacteria Moderate /HPF (None Seen) H 04/25/19 11:37 Ur Microscopic Review INDICATED 04/21/19 12:10 Urine Culture Comments INDICATED 04/25/19 11:37 Nasal Screen MRSA (PCR) NEGATIVE (NEGATIVE) 04/24/19 17:30 Last Dose Date UNK 04/27/19 07:50 Last Dose Time UNK 04/27/19 07:50 Vancomycin Trough 16.6 ug/mL (10.0-20.0) 04/27/19 07:50 KEHINDE & SPEP Interp SEE NOTE 04/22/19 05:00 Total Protein (KEHINDE) 4.9 g/dL (6.1-8.1) L 04/22/19 05:00 Albumin (KEHINDE) 2.5 g/dL (3.8-4.8) L 04/22/19 05:00 Lzxnz-9-Virzrzkez KEHINDE 0.7 g/dL (0.2-0.3) H 04/22/19 05:00 Heqsp-7-Fdvgcwdpb KEHINDE 0.8 g/dL (0.5-0.9) 04/22/19 05:00 Gamma Globulins (KEHINDE) 0.4 g/dL (0.8-1.7) L 04/22/19 05:00 Hepatitis A IgM Ab NON-REACTIVE (NON-REACTIVE) 04/22/19 05:00 Hep Bs Antigen NON-REACTIVE (NON-REACTIVE) 04/22/19 05:00 Hep B Core IgM Ab NON-REACTIVE (NON-REACTIVE) 04/22/19 05:00 Hepatitis C Antibody NON-REACTIVE (NON-REACTIVE) 04/22/19 05:00 Hep C Ab Signal/Cutoff 0.00 (<1.00) 04/22/19 05:00 Influenza A (Rapid) Negative (Negative) 04/25/19 12:17 Influenza B (Rapid) Negative (Negative) 04/25/19 12:17 - Procedures Procedures: Procedures ENDO RECTUM POLYPECTOMY (03/04/13) ENDOSC POLYPECTOMY OF LG INTEST (03/04/13) VENOUS CATHETERIZATION NEC (10/28/13)
[2019-04-28] MEDS: SULFAMETH/TRIMETH DS 800/160 MG TABLET PO SCH (21:38)
[2019-04-28] MEDS: ATORVASTATIN 40 MG TABLET PO SCH (21:39)
[2019-04-28] MEDS: FAMOTIDINE 20 MG TABLET PO SCH (21:39)
[2019-04-29] MEDS: SODIUM CHLORIDE FLUSH 0.9% 10 ML SYRINGE IVP SCH ×3 (00:49→18:08)
[2019-04-29 05:08] LABS: CALCIUM 7.8 mg/dL (8.5-10.3); CREATININE 0.6 mg/dL (0.6-1.2); MAGNESIUM 1.9 mg/dL (1.7-2.8)
[2019-04-29 05:39] LABS: PHOSPHORUS 2.9 mg/dL (2.5-4.6)
[2019-04-29 05:45] LABS: DIGOXIN < 0.2 ng/mL
--- NOTE | 2019-04-29 08:12 | PROVIDER PROGRESS NOTE ---
Subjective - Prog Note Date Prog Note Date: 04/29/19 - Subjective Subjective: He is complaining of back pain that is not controlled at this time. He reports no chest pain or dyspnea. He is unable to move his left upper and lower extremities. Denies abdominal pain. Current Medications - Current Medications Current Medications: Active Medications Aspirin (Ecotrin) 162 mg PO DAILY [facility] Last Admin: 04/29/19 08:56 Dose: 162 mg Atorvastatin Calcium (Lipitor) 80 mg PO QPM [facility] Last Admin: 04/28/19 21:39 Dose: 80 mg Famotidine (Pepcid) 20 mg PO BID [facility] Last Admin: 04/29/19 08:56 Dose: 20 mg Ferrous Sulfate (Feosol Liquid) 300 mg PO DAILYWM [facility] Last Admin: 04/29/19 08:41 Dose: 300 mg Guaifenesin (Mucinex) 600 mg PO BID [facility] Last Admin: 04/29/19 08:41 Dose: 600 mg Sodium Chloride (Normal Saline 0.9%) 500 mls @ 0 mls/hr IV Q24H PRN PRN Reason: TKO RATE Last Admin: 04/29/19 09:07 Dose: 30 mls/hr Acetaminophen (Ofirmev) 100 mls @ 400 mls/hr IV Q6HR PRN PRN Reason: PAIN Last Infusion: 04/28/19 16:46 Dose: Infused Levalbuterol HCl (Xopenex) 1.25 mg INH RTQ4H PRN PRN Reason: Shortness of Air/Wheezing Lisinopril (Zestril) 2.5 mg PO 1200 [facility] Last Admin: 04/28/19 14:41 Dose: Not Given Metoprolol Succinate (Toprol Xl) 25 mg PO BID [facility] Last Admin: 04/29/19 08:41 Dose: 25 mg Mineral Oil (Cavilon) 1 applic TOP PRN PRN PRN Reason: Skin Care Last Admin: 04/27/19 20:15 Dose: 1 applic Morphine Sulfate (Morphine (Carpuject)) 2 mg IVP Q2HR PRN PRN Reason: PAIN Ondansetron HCl (Zofran Inj) 4 mg IVP Q6HR PRN PRN Reason: Nausea / Vomiting Last Admin: 04/23/19 23:45 Dose: 4 mg Saccharomyces Boulardii (Florastor) 250 mg PO BIDWM [facility] Last Admin: 04/29/19 08:41 Dose: 250 mg Sodium Chloride (Normal Saline Flush 0.9%) 10 ml IVP PRN PRN PRN Reason: NEEDED PER PROVIDER ORDERS Last Admin: 04/28/19 06:27 Dose: 10 ml Sodium Chloride (Normal Saline Flush 0.9%) 10 ml IVP 0100,0900,1700 [facility] Last Admin: 04/29/19 09:13 Dose: Not Given Spironolactone (Aldactone) 12.5 mg PO DAILY [facility] Last Admin: 04/29/19 08:41 Dose: 12.5 mg Trimethoprim/Sulfamethoxazole (Bactrim Ds 800/160) 1 tab PO 0900,2200 [facility] Last Admin: 04/29/19 08:41 Dose: 1 tab Furosemide 20 mg PO DAILY 04/21/19 Lisinopril [Zestril] 10 mg PO DAILY 04/21/19 Metoprolol Succinate 12.5 - 25 mg PO DAILY 04/21/19 Warfarin [Coumadin] 2.5 mg PO SUMOTUTHFR 04/21/19 Warfarin [Coumadin] 5 mg PO WESA 04/21/19 Objective - Vital Signs/Intake & Output Reviewed Vital Signs: Yes Vital Signs: Vital Signs x48h Temp Pulse Resp BP Pulse Ox 04/29/19 07:02 95 18 130/86 H 95 04/29/19 06:00 95 17 122/81 H 94 04/29/19 05:00 100 22 122/81 H 96 04/29/19 04:00 36.9 C 91 18 120/73 97 04/29/19 03:00 37.1 C 106 H 22 114/77 97 04/29/19 02:00 97 21 104/67 97 04/29/19 01:00 92 19 110/72 98 Intake & Output: Intake & Output 04/26/19 04/27/19 04/28/19 04/29/19 23:59 23:59 23:59 23:59 Intake Total 3103.583 1338 790 240 Output Total 3365 1376 768 300 Balance -261.417 -38 22 -60 - Objective General Appearance: positive: Alert, Mild distress Eyes Bilateral: positive: Normal inspection, PERRL, EOMI, Conjunctivae nml ENT: positive: ENT inspection nml Neck: positive: Nml inspection Respiratory: positive: No respiratory distress. negative: Wheezes, Rales, Rhonchi Cardiovascular: positive: No murmur, Irregularly irregular. negative: Tachycardia, Bradycardia, Systolic murmur, Diastolic murmur Abdomen: positive: Non-tender, No distention. negative: Tenderness, Guarding, Rebound Skin: positive: Warm, Dry Extremities: positive: Pedal edema (Trace pitting edema in the left lower extremity.), Other (He has a right above-knee amputation. The left extremity has diminished pulses but they are able to be dopplered. The fourth toe on the left foot appears dusky.) Neurologic/Psychiatric: positive: Facial droop (Left-sided), Slurred/abnml speech, Other (He is unable to move his left upper and lower extremities. He has 5 out of 5 motor strength in the right upper extremity. He is able to also move his right lower extremity although this is limited from the above-knee amputation. Sensation is intact over the right upper and lower extremities. He reports no sensation in his left extremities. He has left-sided neglect.). negative: Disoriented to person, Disoriented to place - Lab Results Fish Bones: 04/25/19 11:40 04/29/19 04:34 Other Labs: Lab Results x24hrs 04/29/19 04/29/19 Range/Units 04:34 04:34 Sodium 139 (135-145) mmol/L Potassium 3.5 (3.5-5.0) mmol/L Chloride 107 (101-111) mmol/L Carbon Dioxide 21 (21-32) mmol/L Anion Gap 11.0 (6-13) BUN 13 (6-20) mg/dL Creatinine 0.6 (0.6-1.2) mg/dL Estimated GFR (MDRD) 132 (>89) Glucose 108 H (70-100) mg/dL Calcium 7.8 L (8.5-10.3) mg/dL Phosphorus 2.9 (2.5-4.6) mg/dL Magnesium 1.9 (1.7-2.8) mg/dL Albumin 2.0 L (3.2-5.5) g/dL Last Dose Date 04/28/19 Last Dose Time 927 Digoxin < 0.2 ng/mL ABX Reporting Has patient been on IV antibiotics over the past 48 hours?: No Assessment/Plan - Problem List (1) Acute right MCA stroke Impression: He had acute right MCA stroke on April 25. This is likely embolic in nature given there was ASSIST[employer]IE[employer]INE[employer] involvement as well. He does have a history of atrial fibrillation and he was anticoagulated the day of the stroke. He continues to have left-sided weakness with no motor strength in the left upper and lower extremities. He also left-sided neglect. At the moment, will continue with PT and OT. He will continue aspirin and statin on a daily basis. We will hold anticoagulation given the large infarct for 10 more days. He will likely need to be on Eliquis or Xarelto in the future given he had a stroke while on Coumadin. He will likely require a [facility] facility on discharge. We will consult palliative care given the severity of his stroke and that he will likely require a PEG tube as well for dysphagia. (2) Chronic systolic heart failure Impression: Echocardiogram revealed ejection fraction of 45%. He currently appears euvolemic at this time and therefore we will continue to hold diuresis. He has been started on Toprol, lisinopril, Aldactone and his blood pressure is stable at the moment. We will continue the medication at the current dose and will not increase the dosing given he was hypotensive yesterday. (3) Anemia Impression: He has iron deficiency anemia and his hemoglobin is stable at the moment. We will continue oral iron supplementation Qualifiers: Anemia type: iron deficiency (4) Bony metastasis Impression: This is a new finding this admission and the concern is for metastatic disease likely from prostate cancer given his elevated PSA. We will restart him on IV morphine for pain control as his blood pressure is improved today. We will also consult palliative care. (5) Dysphagia due to recent cerebrovascular accident (CVA) Impression: He had odynophagia initially which is why an endoscopy was pursued. This has since resolved but unfortunately he has severe dysphagia after the CVA. Speech therapy is recommended comfort measures or PEG tube placement. He is currently scheduled to have a PEG tube placed by general surgery tomorrow. Will consult palliative care to discuss with the patient and his family regarding goals of care. Continue puree diet for the time being. (6) Urinary tract infection due to Klebsiella species Impression: This appears to be a catheter associated urinary tract infection as urine analysis was clean prior to catheter placement. He was pancultured given the fever the day of his stroke. It is not clear whether the fever was secondary to UTI or possibly neurogenic given the large size of the infarct. Continue treatment with Bactrim for the urinary tract infection. We will treat for a total of 10 days. Catheter would ideally be replaced given the infection but he does have an edematous scrotum and there is concern that of will be difficult to be placed again and therefore we will keep it in place for the time being. (7) Elevated PSA Impression: This is a new finding a concern for prostate cancer given the bony metastasis. He will require outpatient oncology follow-up. (8) PVD (peripheral vascular disease) Impression: Has history of peripheral vascular disease for which she had a right AKA after he had osteomyelitis of the right lower extremity. His left lower extremity has diminished pulses but they are able to be dopplered. His left fourth toe does appear dusky at the moment. We will continue to monitor his left lower extremity and if there is concern for worsening ischemia, will obtain arterial d oppler of that extremity. (9) Chronic a-fib Impression: He remains in A. fib with heart rates in the 90s. We will continue metoprolol at the current dose given he was hypotensive yesterday. His blood pressure may stable, will increase Toprol dosing. Continue to monitor on telemetry. Hold anticoagulation for another 10 days given his recent CVA.
[2019-04-29] MEDS: SACCHAROMYCES BOULARDII 250 MG CAPSULE PO SCH ×2 (08:41→17:19)
[2019-04-29] MEDS: SULFAMETH/TRIMETH DS 800/160 MG TABLET PO SCH ×2 (08:41→21:11)
[2019-04-29] MEDS: SPIRONOLACTONE 25 MG TABLET PO SCH (08:41)
[2019-04-29] MEDS: FERROUS SULFATE 300 MG/5 ML UDC PO SCH (08:41)
[2019-04-29] MEDS: METOPROLOL SUCCINATE 25 MG TABLET PO SCH ×2 (08:41→21:11)
[2019-04-29] MEDS: guaiFENesin 600 MG TABLET PO SCH ×2 (08:41→21:11)
[2019-04-29] MEDS: ASPIRIN EC 81 MG TABLET PO SCH (08:56)
[2019-04-29] MEDS: FAMOTIDINE 20 MG TABLET PO SCH ×2 (08:56→21:11)
[2019-04-29] MEDS: SODIUM CHLORIDE 0.9% 500 ML IV PRN (09:07)
[2019-04-29] MEDS: MORPHINE 2 MG/ML CARPUJECT IVP PRN ×2 (11:09→20:12)
[2019-04-29] MEDS: lisinopriL 5 MG TABLET PO SCH (12:07)
--- NOTE | 2019-04-29 17:54 | CONSULTATION NOTE ---
Palliative Care Consultation - Referral Referring Provider: Dr. Dillon Sandhu Time of Visit: [id number] Referral setting: Hospitalized patient Referral Reason: Acute Right MCA Stroke/Unknown Primary Cancer with bone mets/Goals of care - Information Sources Records reviewed: RN notes reviewed, Previous records reviewed History/Review of Systems obtained from: Patient, Friend (Hayley friend;), Other (Records) Exam limitations: Clinical condition (patient with minimal verbalization; unclear decision making capacity) - History of Present Illness Brief History of Present Illness: This is an unfortunate 73-year-old gentleman whom I am meeting with for palliative care, secondary to need to confirm goals of care conversation. Patient was originally admitted on 04/21 as a result of progressive failure to thrive, with increasing dehydration, progressive anorexia, weakness, and severe esophageal pain impacting ability to eat and drink. Per documented history. Patient started with decreased intake over 2 months ago, worsening over the last couple weeks and severe over the last 3 days, on evaluation at the ED, he did have a CT of the abdomen done due to elevated liver tests, was found to have not only extensive coronary artery calcification, but sclerotic changes throughout the bones suggesting widespread metastatic disease. Patient was receiving work-up, rehydration, treatment and work-up was pending, unfortunately patient had an acute severe stroke on 04/25 with residual left- sided neglect, left arm paraplegia, and left leg weakness. He also presented with severe dysphagia, left-sided droop, and worsening nutritional status. Patient currently can speak only few words, does appear to nod appropriately in understanding, though is unable to express enough information to confirm his decision making capacity for medical decisions. He has been conversing with nursing staff, family, and concern has been expressed regarding whether patient would want a PEG tube or not for nutrition. In work-up with speech therapy, given his fatigue, difficulty with swallowing, and high risk for aspiration he has had a fork in the road as far as either comfort feeding or PEG tube feeding for support. Patient does appear quite weak, he does make good eye contact, he is very expressive when having conversation though very slow to respond. He is able to move his left leg a little bit, his left arm is flaccid, he is drooling and has left sided neglect. He does appear from documentation, to have ongoing pain, concern regarding his bony mets and pain control. He is also had issues with his cardiac status, and was hypotensive yesterday, is receiving IV morphine for pain control. He is being treated for urinary tract infection, it was finding of elevated PSA, has chronic atrial fib and known CHF. Patient's health issues are in the context of his bigger picture, which is recent amputation of his right leg, he does have a history of coronary artery disease, stent placement, osteomyelitis with eventual amputation in December 2018. He also has a history of strokes, and prior to his last few months, had been managing independently in an apartment. Several difficult decisions are on the table, these include PEG tube feedings, PEG tube placement, severe deficits from acute stroke, follow-up and work-up for cancer in the setting of poor functional status and declining nutritional status, and complex social situation regarding ability to support patient in a home or alternative setting. Medical/Surgical History - Past Medical History Cardiovascular: reports: Hypertension, High cholesterol, Coronary artery disease, Peripheral Vascular Disease, AR, Atrial fibrillation Respiratory: reports: Pneumonia (Treated as pneumonia when he presented with syncope and fevers and elevated white cell count in October 2013. In reading the discharge summary there was some doubt on the diagnosis of pneumonia.) Neuro: CVA, TIA Endocrine/Autoimmune: reports: None GI: reports: Colon polyps (A bout of loose stools resulted in a colonoscopy N 2012. 7 polyps and diverticulosis were found on that scope. Pathology showed tubular adenomas or hyperplastic changes.) : reports: None HEENT: reports: Chronic hearing loss Psych: reports: None Musculoskeletal: reports: Gout Derm: reports: Psoriasis MRSA Hx?: No Other Past Medical History: eosinophilia. h/o rotator cuff injury. bony metastases with unknown primary cancer - Past Surgical History Ortho: reports: Amputation (right leg) Cardiovascular: reports: Coronary stent, Vascular surgery - Substance History Use: Uses substance without health or social issues: NONE Abuse: Recurrent use of substance despite neg consequences: NONE Dependence: Experiences withdrawal or developed tolerances: NONE Social History - Living Situation Living arrangement: At home Living Situation: Alone Support System: Patient lives in [facility]. He does have an apartment there. He moved to [facility], and met [facility] in 2000. They were together at first as a couple, and then became friends and now live separately. She is though his D POA, will need a copy of the paperwork. She does know the family, reports she has good relationship with the children. His brother Chencho came in from [place] last night, they are waiting on his other brother Gisela from 5 hours away, he is not here. Patient is originally from [place]. He is divorces, his children are present from [place], his family have come daughter Janie, daughter Cristy, and son Pedro who goes by Bartow. They have all come to be part of the support and decision making support for Lele. Patient had been in [facility] as a result of his amputation/surgery, at this point does not want to return there, they are exploring other settings, including [facility]. Family History - Family History Family History: Mother: (brain aneursym), CVA/TIA, Father: , Sister: Alive and Well, Brother: Alive and Well Medications/Allergies - Medications Active Medication List: Active Medications Acetaminophen (Tylenol) 650 mg MT Q6HR PRN PRN Reason: Pain or Fever > 38C (100.4F) Aspirin (Ecotrin) 81 mg PO DAILY COUNTS INCLUDE 234 BEDS AT THE [facility] Atorvastatin Calcium (Lipitor) 80 mg PO QPM COUNTS INCLUDE 234 BEDS AT THE [facility] Last Admin: 04/28/19 21:39 Dose: 80 mg Famotidine (Pepcid) 20 mg PO BID COUNTS INCLUDE 234 BEDS AT THE [facility] Last Admin: 04/29/19 08:56 Dose: 20 mg Ferrous Sulfate (Feosol Liquid) 300 mg PO DAILYWM COUNTS INCLUDE 234 BEDS AT THE [facility] Last Admin: 04/29/19 08:41 Dose: 300 mg Guaifenesin (Mucinex) 600 mg PO BID COUNTS INCLUDE 234 BEDS AT THE [facility] Last Admin: 04/29/19 08:41 Dose: 600 mg Sodium Chloride (Normal Saline 0.9%) 500 mls @ 0 mls/hr IV Q24H PRN PRN Reason: TKO RATE Last Admin: 04/29/19 09:07 Dose: 30 mls/hr Levalbuterol HCl (Xopenex) 1.25 mg INH RTQ4H PRN PRN Reason: Shortness of Air/Wheezing Lisinopril (Zestril) 2.5 mg PO 1200 COUNTS INCLUDE 234 BEDS AT THE [facility] Last Admin: 04/29/19 12:07 Dose: 2.5 mg Metoprolol Succinate (Toprol Xl) 25 mg PO BID COUNTS INCLUDE 234 BEDS AT THE [facility] Last Admin: 04/29/19 08:41 Dose: 25 mg Mineral Oil (Cavilon) 1 applic TOP PRN PRN PRN Reason: Skin Care Last Admin: 04/27/19 20:15 Dose: 1 applic Morphine Sulfate (Morphine (Carpuject)) 2 mg IVP Q2HR PRN PRN Reason: PAIN Last Admin: 04/29/19 11:09 Dose: 2 mg Ondansetron HCl (Zofran Inj) 4 mg IVP Q6HR PRN PRN Reason: Nausea / Vomiting Last Admin: 04/23/19 23:45 Dose: 4 mg Saccharomyces Boulardii (Florastor) 250 mg PO BIDWM COUNTS INCLUDE 234 BEDS AT THE [facility] Last Admin: 04/29/19 17:19 Dose: Not Given Sodium Chloride (Normal Saline Flush 0.9%) 10 ml IVP PRN PRN PRN Reason: NEEDED PER PROVIDER ORDERS Last Admin: 04/28/19 06:27 Dose: 10 ml Sodium Chloride (Normal Saline Flush 0.9%) 10 ml IVP 0100,0900,1700 COUNTS INCLUDE 234 BEDS AT THE [facility] Last Admin: 04/29/19 09:13 Dose: Not Given Spironolactone (Aldactone) 12.5 mg PO DAILY COUNTS INCLUDE 234 BEDS AT THE [facility] Last Admin: 04/29/19 08:41 Dose: 12.5 mg Trimethoprim/Sulfamethoxazole (Bactrim Ds 800/160) 1 tab PO 0900,2200 COUNTS INCLUDE 234 BEDS AT THE [facility] Last Admin: 04/29/19 08:41 Dose: 1 tab Furosemide 20 mg PO DAILY 04/21/19 Lisinopril [Zestril] 10 mg PO DAILY 04/21/19 Metoprolol Succinate 12.5 - 25 mg PO DAILY 04/21/19 Warfarin [Coumadin] 2.5 mg PO SUMOTUTHFR 04/21/19 Warfarin [Coumadin] 5 mg PO WESA 04/21/19 - Allergies Allergies/Adverse Reactions: Allergies Allergy/AdvReac Type Severity Reaction Status Date / Time Fnqvojt-Nys-Tab Reductase AdvReac Dizziness Verified 04/21/19 08:51 Inhibitor Review of Systems - Constitutional Constitutional: reports: Fatigue (wears out easily), Poor appetite, Weight loss - Ears, Nose & Throat Ears, Nose & Throat: reports: Dental decay - Respiratory Respiratory: denies: SOB at rest - Gastrointestinal Gastrointestinal: reports: Other (fatigue and difficulty with eating) - Genitourinary Genitourinary: reports: Other (alva catheter) - Musculoskeletal Musculoskeletal: reports: Back pain, Stiffness, Limited range of motion (left side), Muscle weakness, Transfer issues (dependent) - Integumentary Integumentary: reports: Dryness - Neurological Neurological: reports: General weakness, Other (difficulty with speech; few words soft voice) - Psychiatric Psychiatric: reports: Depression (friend feels patient has been depressed with loss of leg) - All Other Systems All Other Systems: reports: Other (limited ROS) Physical Exam - Vital Signs Vital Signs: Vital Signs x48h Temp Pulse Pulse Resp BP Pulse Ox 04/29/19 15:42 37.2 C 04/29/19 15:00 27.1 C L 93 21 142/76 H 98 04/29/19 12:00 36.9 C 88 18 134/69 H 99 04/29/19 11:03 37.2 C 98 21 97 - Physical Exam General Appearance: positive: Alert Eyes Bilateral: positive: Normal inspection ENT: positive: Other (poor dentition) Neck: positive: Trachea midline Cardiovascular: positive: Irregularly irregular Respiratory: positive: Diminished throughout (anteriorly). negative: No respiratory distress (easily tires with increased respiratory effort with conversation) Abdomen: positive: Soft Skin: positive: Pallor Extremities: positive: No pedal edema Neurologic/Psychiatric: positive: Weakness, Facial droop (left), Flat affect, Other (orientated to person; unclear time/place) Palliative Care - POLST Patient has POLST: Yes POLST Status: DNR, Selective Treatment Pain: Comment (patient denies pain at time of visit; has been painful with movement;) Performance Status: Patient currently dependent for all ADLs. Does have no movement in her left arm, can move his left leg with direction. Is missing his right leg. He is needing assist in feeding, is on pured diet. Is able to make eye contact. Patient be total dependent for bed mobility, and all ADLs at this point.Patient's prior level of function, had been improved for short period of time, but has been weakening with his weight loss and poor intake over the last several weeks, with frequent falls. - Palliative Care Discussion: Was able to meet with patient prior to family arriving. Asked patient his current understanding of his illness, he does report he had cancer was able to verbalize that, did discuss in a "ask tell ask" format, concerns regarding his stroke. He does understand he has been asked multiple times regarding his desire or not, for a feeding tube. He does understand that that is back on the table as far as conversation as a concern he had expressed he did not, at this point in time he shook his head no and said no surgery, did revisit this in the context of he would not be able to meet his nutritional needs, and would lead to his demise. We also broach the topic of what would be quality of life, patient would want to be independent. We did discuss that this was not possible, and would need ongoing support if this would be quality of life, and he expressed no. Did venture into if he had spiritual path, or mormon, he did reply "I believe in God". I did ask him if he was afraid of dying, and he did have a quip as far as "aren't we all". Reapproached the tube feeding conversation several times, was consistent in his decline despite description of would not be a comparative surgery to his leg, did not realize at that point in time they had to abort surgery earlier. Asked if he had talked to Lele about this, he reported he had not but plans to. Discussed his family was coming in and would most likely be having more conversation, he did nod in agreement. Did meet with his family and Dr. Harry, again setting the stage, And attempting to tease out what would be acceptable quality of life given times previous expressed wishes. They do understand he has an underlying diagnosis of unknown primary and cancer. This may or may not weigh into the decision-making, prostate cancer certainly is able to treat, but patient would need to be in a capacity to be able to benefit from treatment, including also tolerate the work- up needed. We reviewed the bigger concern is currently the residual from his stroke, particularly difficulty with swallowing. Patient at this point in time, of course this may improve, is at high risk for aspiration, most likely not able to meet his nutritional needs, and that he expected to continue to decline. It would still be possible, to consider rehab without the PEG tube, to consider "time trial with the TF" to see if patient improves, But most likely given acuity of his stroke, his underlying health problems, and his ongoing decline would not return to a level of independence. This is the most prominent question in the context of this as far as quality of life, and what would be acceptable. Did answer multiple questions regarding the spectrum of care, including trial of rehab, trial of PEG tube feedings, trial of rehab without the PEG tube feedings, and or transition to comfort care/hospice. Counseling provided that it did not take away all risk for aspiration, but does mitigate it, patient would still be at risk for aspiration pneumonia. Family expressed c oncern regarding patient's quality of life, worried about extended suffering, and are hopeful patient could participate in conversation. Did meet with patient with family present, did explore again with explanation had been talking to family about our previous conversation regarding his wishes around tube feedings. He did express again he did not want a tube feeding, we did try and revisit if he has expressed understanding regarding the implications of weighing benefits and burdens of this. Set out decision again with rehab, PEG tubes, concern for underlying quality of life, but also patient being able to have his needs met. At this point in time he did not have a primary caregiver, counseling provided regarding hospice benefit, services provided but not room and board. Family will continue this discussion amongst themselves, patient was unable to express rehab versus hospice, was quite fatigued by the end of her conversation. We did discuss does not need to make this decision at this point in time. Also discussed with family, no matter what decision they make in the context of the bigger picture, they can choose to transition to comfort care and/hospice if patient worsened, goals changed, if wanted to do a rehab stay first. But all are fairly cognizant that he will not be able to live independently again. Provided "hard choices for loving people." Results - Lab Results Lab results reviewed: Yes Fish Bones: 04/25/19 11:40 04/29/19 04:34 Lab and Imaging Results: Lab Results x24hrs 04/29/19 04/29/19 Range/Units 04:34 04:34 Sodium 139 (135-145) mmol/L Potassium 3.5 (3.5-5.0) mmol/L Chloride 107 (101-111) mmol/L Carbon Dioxide 21 (21-32) mmol/L Anion Gap 11.0 (6-13) BUN 13 (6-20) mg/dL Creatinine 0.6 (0.6-1.2) mg/dL Estimated GFR (MDRD) 132 (>89) Glucose 108 H (70-100) mg/dL Calcium 7.8 L (8.5-10.3) mg/dL Phosphorus 2.9 (2.5-4.6) mg/dL Magnesium 1.9 (1.7-2.8) mg/dL Albumin 2.0 L (3.2-5.5) g/dL Last Dose Date 04/28/19 Last Dose Time 09 Digoxin < 0.2 ng/mL Impression and Recommendations - Palliative Care Impression: This is an unfortunate 73-year-old gentleman, who presents with significant complexity given his most recent acute stroke, residual deficits including dysphagia, underlying unknown primary with metastatic bone mets, and complex social situation. Palliative care providing support in the context of goals of care, pending decisions, and psychosocial support for patient and family. Recommendations/Counseling Done: 1. Pain of neoplastic origin. Unable to get a sense of his current opioid use or pain. Had received only one dose of MS today earlier. Hayley feels patient has had progressive pain and discomfort, worried about keeping him comfortable. Has known chronic back pain, will need closer evaluation for transition either to rehab or home. Most likely pain is resulting from his bone mets, depending on his ability to take oral medications, would benefit from a long-acting NSAID, would recommend diclofenac or meloxicam, for decreased dosing interval. Patient's current kidney function would tolerate this. If patient were to need persistent or recurrent opioid dosing, or as adjuvant, would need prior to transition to fentanyl 12 mcg patch, an equanalgesic of in 24-hour period m orphine po equivalent of MS 25 mg and/or 10 mg MS IV. For ease of dosing, would recommend transitioning to morphine 20 mg/ml, 5 mg every 3-4 hours orally. 2. Dysphagia. Currently leaning at end of visit towards no PEG tube feeding, with then transition to ongoing work with speech therapy and comfort feeding. Counseling provided to family regarding aspiration and aspiration risk, and again it is not totally mitigated by PEG tube feeding only but decreased. There are also complications that can occur as well with feeding tubes, questions were answered. 3. Advanced care planning. Patient has had previous advance care planning encounters, his first one 04/21, does have him expressing that he would be only willing to undergo treatment and therapy to keep him living longer for his cancer treatment, if he could be in his own apartment, would not be willing at that point to live in a long-term facility on a permanent basis. And he would prefer to be in his own apartment with hospice to if this was his course. This was prior to his stroke on 04/21. And his second counter on 04/28, was less able to participate in the conversation, this was 3 days after his stroke, this was prior to planning for the EGD, which later had to be aborted. It has been consistent both with his POLST, follow-up with a Vishal GRADY, for request for DNR, DNI, and selective treatment which means weighing benefits and burdens as decisions, long. At that point they had decided for allowing trial of the tube feeding, but this is been revisited today because of patient's expressed wishes and concern for his ongoing decline. Please see palliative care discussion, family counseling provided, follow-up with patient, at this point in time weighing benefits and burdens of going to rehab versus home with hospice, and no solid decision had been made on the PEG tube at the end of my visit. This was communicated to the hospitalist, who will follow up with the surgeon. Family is going to continue discussion and will need ongoing support but aware that the decisions are time sensitive. Patient would meet criteria for hospice, if chose to transition to another setting or home, most likely unable to meet his nutritional needs long-term, high risk for recurrent aspiration/pneumonia, as well as would have untreated cancer of unknown primary. Time Spent: 125 minutes with continuous interaction with patient and or family, regarding goals of care, counseling regarding benefits and burdens of decisions before them, information provided on the continuum of care, psychosocial support given.
[2019-04-29] MEDS: ATORVASTATIN 40 MG TABLET PO SCH (21:10)
[2019-04-30] MEDS: MORPHINE 2 MG/ML CARPUJECT IVP PRN ×2 (00:08→12:33)
[2019-04-30] MEDS: SODIUM CHLORIDE FLUSH 0.9% 10 ML SYRINGE IVP SCH ×3 (00:09→17:42)
[2019-04-30 05:56] LABS: ALBUMIN 2.1 g/dL (3.2-5.5); CALCIUM 7.7 mg/dL (8.5-10.3); CREATININE 0.7 mg/dL (0.6-1.2)
[2019-04-30] MEDS: FERROUS SULFATE 300 MG/5 ML UDC PO SCH (09:07)
[2019-04-30] MEDS: SACCHAROMYCES BOULARDII 250 MG CAPSULE PO SCH ×2 (09:07→16:57)
[2019-04-30] MEDS: guaiFENesin 600 MG TABLET PO SCH ×2 (09:11→20:39)
[2019-04-30] MEDS: FAMOTIDINE 20 MG TABLET PO SCH ×2 (09:21→20:39)
[2019-04-30] MEDS: SULFAMETH/TRIMETH DS 800/160 MG TABLET PO SCH ×2 (09:21→20:55)
[2019-04-30] MEDS: METOPROLOL SUCCINATE 25 MG TABLET PO SCH ×2 (09:21→20:39)
[2019-04-30] MEDS: SPIRONOLACTONE 25 MG TABLET PO SCH (09:21)
[2019-04-30] MEDS: ASPIRIN EC 81 MG TABLET PO SCH (09:21)
[2019-04-30] MEDS: SODIUM CHLORIDE 0.9% 500 ML IV PRN (10:44)
[2019-04-30] MEDS: lisinopriL 5 MG TABLET PO SCH (12:27)
--- NOTE | 2019-04-30 14:07 | PROVIDER PROGRESS NOTE ---
Subjective - Prog Note Date Prog Note Date: 04/30/19 - Subjective Subjective: Seems to complain of back pain. It is somewhat controlled with IV morphine. Reports no chest pain or dyspnea. Is able to take some oral intake despite the dysphagia. The family and patient had decided against pursuing a PEG tube. Current Medications - Current Medications Current Medications: Active Medications Acetaminophen (Tylenol) 650 mg [place] Q6HR PRN PRN Reason: Pain or Fever > 38C (100.4F) Aspirin (Ecotrin) 81 mg PO DAILY [facility] Last Admin: 04/30/19 09:21 Dose: 81 mg Atorvastatin Calcium (Lipitor) 80 mg PO QPM [facility] Last Admin: 04/29/19 21:10 Dose: 80 mg Famotidine (Pepcid) 20 mg PO BID [facility] Last Admin: 04/30/19 09:21 Dose: 20 mg Ferrous Sulfate (Feosol Liquid) 300 mg PO DAILYWM [facility] Last Admin: 04/30/19 09:07 Dose: 300 mg Guaifenesin (Mucinex) 600 mg PO BID [facility] Last Admin: 04/30/19 09:11 Dose: 600 mg Sodium Chloride (Normal Saline 0.9%) 500 mls @ 0 mls/hr IV Q24H PRN PRN Reason: TKO RATE Last Admin: 04/30/19 10:44 Dose: 30 mls/hr Levalbuterol HCl (Xopenex) 1.25 mg INH RTQ4H PRN PRN Reason: Shortness of Air/Wheezing Lisinopril (Zestril) 2.5 mg PO 1200 [facility] Last Admin: 04/30/19 12:27 Dose: 2.5 mg Metoprolol Succinate (Toprol Xl) 25 mg PO BID [facility] Last Admin: 04/30/19 09:21 Dose: 25 mg Mineral Oil (Cavilon) 1 applic TOP PRN PRN PRN Reason: Skin Care Last Admin: 04/27/19 20:15 Dose: 1 applic Morphine Sulfate (Morphine (Carpuject)) 2 mg IVP Q2HR PRN PRN Reason: PAIN Last Admin: 04/30/19 12:33 Dose: 2 mg Ondansetron HCl (Zofran Inj) 4 mg IVP Q6HR PRN PRN Reason: Nausea / Vomiting Last Admin: 04/23/19 23:45 Dose: 4 mg Saccharomyces Boulardii (Florastor) 250 mg PO BIDWM [facility] Last Admin: 04/30/19 09:07 Dose: 250 mg Sodium Chloride (Normal Saline Flush 0.9%) 10 ml IVP PRN PRN PRN Reason: NEEDED PER PROVIDER ORDERS Last Admin: 04/28/19 06:27 Dose: 10 ml Sodium Chloride (Normal Saline Flush 0.9%) 10 ml IVP 0100,0900,1700 [facility] Last Admin: 04/30/19 09:21 Dose: 10 ml Spironolactone (Aldactone) 12.5 mg PO DAILY [facility] Last Admin: 04/30/19 09:21 Dose: 12.5 mg Trimethoprim/Sulfamethoxazole (Bactrim Ds 800/160) 1 tab PO 0900,2200 [facility] Last Admin: 04/30/19 09:21 Dose: 1 tab Furosemide 20 mg PO DAILY 04/21/19 Lisinopril [Zestril] 10 mg PO DAILY 04/21/19 Metoprolol Succinate 12.5 - 25 mg PO DAILY 04/21/19 Warfarin [Coumadin] 2.5 mg PO SUMOTUTHFR 04/21/19 Warfarin [Coumadin] 5 mg PO WESA 04/21/19 Objective - Vital Signs/Intake & Output Reviewed Vital Signs: Yes Vital Signs: Vital Signs x48h Temp Pulse Pulse Resp BP Pulse Ox 04/30/19 13:00 37.5 C 80 16 134/62 H 94 04/30/19 09:00 85 21 140/75 H 96 04/30/19 08:00 90 18 04/30/19 07:00 82 14 141/68 H 98 Intake & Output: Intake & Output 04/27/19 04/28/19 04/29/19 04/30/19 23:59 23:59 23:59 23:59 Intake Total 1338 1290 340 500 Output Total 1376 768 700 375 Balance -38 522 -360 125 - Objective General Appearance: positive: Alert, Mild distress Eyes Bilateral: positive: Normal inspection ENT: positive: ENT inspection nml Neck: positive: Nml inspection Respiratory: positive: No respiratory distress, Other (Diminished breath sounds.). negative: Wheezes, Rales, Rhonchi Cardiovascular: positive: No murmur, Irregularly irregular. negative: Tachycardia, Bradycardia Abdomen: positive: Non-tender, No distention Skin: positive: Warm, Dry Neurologic/Psychiatric: positive: Other (He continues to have persistent left- sided weakness and is unable to move his left upper or lower extremity.). negative: Disoriented to person, Disoriented to place - Lab Results Fish Bones: 04/25/19 11:40 04/30/19 04:25 Other Labs: Lab Results x24hrs 04/30/19 04/30/19 Range/Units 04:25 04:25 Sodium 139 (135-145) mmol/L Potassium 3.7 (3.5-5.0) mmol/L Chloride 109 (101-111) mmol/L Carbon Dioxide 21 (21-32) mmol/L Anion Gap 9.0 (6-13) BUN 14 (6-20) mg/dL Creatinine 0.7 (0.6-1.2) mg/dL Estimated GFR (MDRD) 110 (>89) Glucose 102 H (70-100) mg/dL Calcium 7.7 L (8.5-10.3) mg/dL Phosphorus 3.0 (2.5-4.6) mg/dL Magnesium 2.0 (1.7-2.8) mg/dL Albumin 2.1 L (3.2-5.5) g/dL Assessment/Plan - Problem List (1) Acute right MCA stroke Impression: Continues to have persistent left-sided upper and lower extremity weakness. CT of the head on September 23 revealed a large right-sided infarct. Concern is for an embolic stroke given his history of atrial fibrillation and the nature of the stroke. He is on aspirin and Lipitor. We will continue to hold anticoagulation for another 9 days given the severity of the stroke. Given he had a stroke despite anticoagulation with Coumadin, he will need to be on Eliquis or Xarelto when anticoagulation is restarted. He will be going to [facility] facility on discharge for ongoing rehab. Family has decided against a PEG tube. We will continue with a pure diet as tolerated. I discussed yesterday with the patient's family regarding the patient's current medical condition and his prognosis. Palliative care was also present for the conversation. I discussed that his current stroke is with him quite debilitated from a physical standpoint. There is also concern for malignancy given the bony metastasis is likely prostate in nature given his elevated PSA. Patient ready has a right above-knee amputation for peripheral vascular disease. The patient's family feel that his current quality of life is not me that he would be happy with. Palliative care discussed many of the options available with the patient and his family. Family has ultimately decided against placing a PEG tube and the patient also stated that he would not want PEG tube. Plan will be to go to a fpc facility for rehab and speech therapy. The patient may potentially get stronger but if he does not, we will likely transition to hospice. (2) Chronic systolic heart failure Impression: His echocardiogram revealed ejection fraction of 45%. He continues to appear euvolemic at this time and therefore we will continue to hold diuresis and will not discharge him on a diuretic. We will continue his Toprol and lisinopril. We will discontinue Aldactone as his ejection fraction is 45% and given his poor oral intake, he can become hypovolemic. (3) Anemia Impression: His iron deficiency anemia which is stable. Continue oral iron for mentation. Qualifiers: Anemia type: iron deficiency (4) Bony metastasis Impression: This is a new findings admission given the concern for prostate cancer with metastases to the bone. Will discontinue IV morphine and start him on oral morphine 5 mg every 4 hours as needed. We will also start him on a fentanyl patch 12 mcg. (5) Dysphagia due to recent cerebrovascular accident (CVA) Impression: Patient and family have decided against the PEG tube. We will continue with a pured diet as tolerated. He will continue with speech therapy while at [facility]. (6) Urinary tract infection due to Klebsiella species Impression: This is likely catheter associated UTI given his urine sample was clean prior to Tam placement. Given his scrotal edema, the Tam catheter has not changed. He has had no fevers and no signs of worsening infection. We will continue oral Bactrim for 5 more days to complete a 10-day course of treatment (7) Elevated PSA Impression: Suspect he likely has prostate cancer given elevated PSA and brain metastasis. Depending on his clinical improvement over next few weeks, family and patient may consider further outpatient work-up. (8) PVD (peripheral vascular disease) Impression: Continue with aspirin and statin for peripheral vascular disease. His left lower extremity appears stable. Will not pursue an arterial Doppler of that leg as family stated he had one about a month ago which showed some stenosis. (9) Chronic a-fib Impression: Remains atrial fibrillation but is rate controlled on metoprolol. We will continue to hold anticoagulation for 9 days given his recent CVA
[2019-04-30] MEDS ORDERED: MORPHINE SOL 10 MG/0.5 ML SYRINGE PO PRN (14:12)
[2019-04-30] MEDS ORDERED: fentaNYL 12 MCG PATCH TOP SCH (15:00)
--- NOTE | 2019-04-30 16:37 | CONSULTATION NOTE ---
Palliative Care Follow Up - Referral Referring Provider: Dr. Dillon Sandhu Time of Visit: [id number] Referral setting: Hospitalized patient Referral Reason: Acute Stroke/Goals of Care - Information Sources Records reviewed: Previous records reviewed History/Review of Systems obtained from: Patient, Family, Caregiver Exam limitations: Clinical condition (patient difficulty with verbalization but more alert and participatory today) - History of Present Illness Update Brief HPI Update: Please see HPI note 04/30 for summary. 73-year-old gentleman, with an acute stroke, unknown primary and mets to the bone, does appear a bit more alert today, able to engage make eye contact. Patient does report he recalls conversation from yesterday, is still only able to eat small amounts of pured food, but is taking thickened liquids, and increased amount. Patient observed, no choking, but is easily fatigued. Patient does have weak cough, some respiratory effort, rhonchi clear with cough effort. Diminished in his bases. Abdomen soft. Patient left upper extremity still flaccid, droop is less on left, Verbalization a little bit clear, though still quite slow to respond. Patient does seem aware of current situation, was able to continue with his "quick wit", family reports this is more consistent with baseline personality. Patient able to move his left leg some, but does elicit a pain response with any kind of movement. Patient does report consistent and persistent right shoulder pain, and back pain, but has been worsening. Continues to feel his pain is still moderate particular with any activity. Family conference to determine final goals of care, and disposition for transition plan. Social History - Living Situation Living arrangement: care home (patient will be discharging to SNF for rehab. Family and patient aware will not be able to return home unless has 24 hours care support. 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.) Medications/Allergies - Medications Active Medication List: Active Medications Acetaminophen (Tylenol) 650 mg [place] Q6HR PRN PRN Reason: Pain or Fever > 38C (100.4F) Aspirin (Ecotrin) 81 mg PO DAILY [facility] Last Admin: 04/30/19 09:21 Dose: 81 mg Atorvastatin Calcium (Lipitor) 80 mg PO QPM [facility] Last Admin: 04/29/19 21:10 Dose: 80 mg Famotidine (Pepcid) 20 mg PO BID [facility] Last Admin: 01/22/20 09:21 Dose: 20 mg Fentanyl (Duragesic) 1 patch TOP Q3D [facility] Ferrous Sulfate (Feosol Liquid) 300 mg PO DAILYWM [facility] Last Admin: 04/30/19 09:07 Dose: 300 mg Guaifenesin (Mucinex) 600 mg PO BID [facility] Last Admin: 04/30/19 09:11 Dose: 600 mg Sodium Chloride (Normal Saline 0.9%) 500 mls @ 0 mls/hr IV Q24H PRN PRN Reason: TKO RATE Last Admin: 04/30/19 10:44 Dose: 30 mls/hr Levalbuterol HCl (Xopenex) 1.25 mg INH RTQ4H PRN PRN Reason: Shortness of Air/Wheezing Lisinopril (Zestril) 2.5 mg PO 1200 [facility] Last Admin: 04/30/19 12:27 Dose: 2.5 mg Metoprolol Succinate (Toprol Xl) 25 mg PO BID [facility] Last Admin: 04/30/19 09:21 Dose: 25 mg Mineral Oil (Cavilon) 1 applic TOP PRN PRN PRN Reason: Skin Care Last Admin: 04/27/19 20:15 Dose: 1 applic Morphine Sulfate (Roxanol) 5 mg PO Q4HR PRN PRN Reason: PAIN Ondansetron HCl (Zofran Inj) 4 mg IVP Q6HR PRN PRN Reason: Nausea / Vomiting Last Admin: 04/23/19 23:45 Dose: 4 mg Saccharomyces Boulardii (Florastor) 250 mg PO BIDWM [facility] Last Admin: 04/30/19 09:07 Dose: 250 mg Sodium Chloride (Normal Saline Flush 0.9%) 10 ml IVP PRN PRN PRN Reason: NEEDED PER PROVIDER ORDERS Last Admin: 04/28/19 06:27 Dose: 10 ml Sodium Chloride (Normal Saline Flush 0.9%) 10 ml IVP 0100,0900,1700 [facility] Last Admin: 04/30/19 09:21 Dose: 10 ml Trimethoprim/Sulfamethoxazole (Bactrim Ds 800/160) 1 tab PO 0900,2200 [facility] Last Admin: 04/30/19 09:21 Dose: 1 tab Furosemide 20 mg PO DAILY 04/21/19 Lisinopril [Zestril] 10 mg PO DAILY 01/13/20 Metoprolol Succinate 12.5 - 25 mg PO DAILY 04/21/19 Warfarin [Coumadin] 2.5 mg PO SUMOTUTHFR 04/21/19 Warfarin [Coumadin] 5 mg PO WESA 04/21/19 - Allergies Allergies/Adverse Reactions: Allergies Allergy/AdvReac Type Severity Reaction Status Date / Time [id number] Reductase AdvReac Dizziness Verified 04/21/19 08:51 Inhibitor Review of Systems - Constitutional Constitutional: reports: Fatigue, Weight loss. denies: Fever - Ears, Nose & Throat Ears, Nose & Throat: reports: Dental decay, Dry mouth, Other (denies pain with swallowing) - Cardiovascular Cardiovascular: reports: Irregular heart rate - Respiratory Respiratory: reports: Cough. denies: SOB at rest - Gastrointestinal Gastrointestinal: reports: Other (fatigues with eating;) - Genitourinary Genitourinary: reports: Other (alva catheter;) - Musculoskeletal Musculoskeletal: reports: Back pain, Stiffness, Limited range of motion (left UE hemiplegia), Muscle weakness, Transfer issues (max lift transfer) - Integumentary Integumentary: reports: Rash (forehead), Dryness - Neurological Neurological: reports: General weakness, Slurred speech. denies: Headache - Psychiatric Psychiatric: reports: Depression, Anxiety - Hematologic/Lymphatic Hematologic/Lymphatic: reports: Anemia (9.8) - All Other Systems All Other Systems: reports: Other (limited given patients fatigue/diff. verbalizing) Physical Exam - Vital Signs Vital Signs: Vital Signs x48h Temp Pulse Resp BP Pulse Ox 04/30/19 13:00 37.5 C 80 16 134/62 H 94 04/30/19 09:00 85 21 140/75 H 96 - Physical Exam General Appearance: positive: Alert Eyes Bilateral: positive: Normal inspection ENT: positive: Other (poor dentition) Neck: positive: Trachea midline Cardiovascular: positive: Irregular Respiratory: positive: No respiratory distress, Diminished throughout, Rhonchi (decreased with cough) Abdomen: positive: Soft, Nml bowel sounds Skin: positive: Pallor, Rash (eczema forehead) Extremities: positive: No pedal edema, Other (right DKA) Neurologic/Psychiatric: positive: Disoriented to time, Weakness, Facial droop (improved), Slurred/abnml speech, Depressed mood/affect, Flat affect Palliative Care - POLST Patient has POLST: Yes POLST Status: DNR, Selective Treatment Pain: Pain worsening, Location (right shoulder/known cuff injury; back pain worsened from chronic baseline;), Severity (mod to severe) - Palliative Care Discussion: Meeting with patient, does understand transition plan is in the works. The patient has expressed wanting to go home, currently no primary caregiver available. We did discuss in the context of hoping for the best, to transition for rehab, and as patient continues to improve which he perceives himself, that he is much better today. I would agree as far as being able to make eye contact, conversation, and is swallowing somewhat better. Patient continues to express no feeding tube, no further surgery, he was making light and having fun at his children's expense, about the end of life planning. They have gone through the process, of getting documents for his last will and testament, donation to [facility] for his body, as well as documents needed for his final affairs. Met with family, 2 brothers Chencho and Gisela, his children Janie Muniz and . They are in agreement and willing to support patient as far as no PEG tube, they understand he is quite adamant about this. They also understand given his bigger picture, most likely will not benefit him in the long run. They do understand the seriousness of his illness, they are hopeful for some improvement in quality of life, and agree with transition to rehab. U nfortunately none of the children or family will be staying, we did discuss in the context of looking forward, patient most likely to face some more difficult decisions. If patient continues to decline, would recommend they are in agreement or have a plan for transition to comfort or hospice care if appropriate. Follow-up with Lele, she did not come up she is quite exhausted. She has been providing support for patient over this last year, with multiple health problems. She very much wants the family to come to some agreement and have it be their decision too, discussed though she was a D POA, and needed to confirm patient's decision with family support no PEG tube, and transition to rehab. She is concerned looking into the future, she is not going to be able to be there to oversee his care, and was hoping the family would step up or provide more support regarding this. Lilian is willing to take him even without the PEG tube, with the hope to improve his underlying health status and quality of life. Unable to locate DPOA document, she reports she will bring a copy tomorrow, she reports she did give someone the document in the first few days. Results - Lab Results Fish Bones: 04/25/19 11:40 04/30/19 04:25 Lab and Imaging Results: Lab Results x24hrs 04/30/19 04/30/19 Range/Units 04:25 04:25 Sodium 139 (135-145) mmol/L Potassium 3.7 (3.5-5.0) mmol/L Chloride 109 (101-111) mmol/L Carbon Dioxide 21 (21-32) mmol/L Anion Gap 9.0 (6-13) BUN 14 (6-20) mg/dL Creatinine 0.7 (0.6-1.2) mg/dL Estimated GFR (MDRD) 110 (>89) Glucose 102 H (70-100) mg/dL Calcium 7.7 L (8.5-10.3) mg/dL Phosphorus 3.0 (2.5-4.6) mg/dL Magnesium 2.0 (1.7-2.8) mg/dL Albumin 2.1 L (3.2-5.5) g/dL Impression and Recommendations - Palliative Care Impression: This is an unfortunate 73-year-old gentleman who presents with significant complexity given his most recent acute stroke, residual deficits including dysphagia, underlying unknown primary cancer with metastatic bone mets, and complex social situation. Decision is been made not to pursue PEG tube, and transition to rehab with a focus on quality of life issues. Recommendations/Counseling Done: 1. Advanced care planning. Follow-up in family conference regarding final decision regarding PEG tube, patient does not want this, and they will support his decision recognizing most likely not to impact the final outcome. Patient will transition to [facility] rehab, with the goal to continue to evaluate response and improvement from stroke, this will inform whether to follow-up any further on his cancer diagnosis. Encouragement to family regarding most likely will be facing similar decisions, in the near future, and to come to some agreement for long-term plan. Encouraged to fill out paperwork for [facility] as soon as possible, and work with social service assistant at facility for longer term plan. Answered questions regarding the continuum of care, patient currently able to participate in decisions. He does understand they are working on his end-of-life documents, they have reviewed these with him, and feel he does understand the intent and content. Call to locate notary, counseling provided will need to get witnesses not from clinical staff. Coordination of care with hospitalist and discharge manager business planning. Time Spent: 60 minutes with greater than 50% of this done in counseling and coordination of care regarding transition planning and end-of-life documents, and anticipatory guidance with family.
[2019-04-30] MEDS: ACETAMINOPHEN 650 MG SUPP PR PRN (20:30)
[2019-04-30] MEDS: ATORVASTATIN 40 MG TABLET PO SCH (20:39)
[2019-04-30] MEDS: MIN OIL/DIMETHICON/COCONUT OIL 92 GM TUBE TOP PRN (20:51)
[2019-05-01] MEDS: SODIUM CHLORIDE FLUSH 0.9% 10 ML SYRINGE IVP SCH ×2 (00:45→08:26)
[2019-05-01 05:14] LABS: BASOPHILS % (AUTO) 0.5 %; HGB - HEMOGLOBIN 9.3 g/dL (14.0-18.0); LYMPHOCYTES % (AUTO) 11.5 %; MEAN CORPUSCULAR HEMOGLOBIN 28.4 pg (27.0-31.0); MEAN CORPUSCULAR HGB CONC 31.1 g/dL (32.0-36.0); MEAN CORPUSCULAR VOLUME 91.4 fL (80.0-94.0); MEAN PLATELET VOLUME 8.9 fL (7.4-11.4); MONOCYTES % (AUTO) 7.2 %; NEUTROPHILS % (AUTO) 70.6 %; PLT - PLATELET COUNT 243 10^3/uL (130-450); RED BLOOD COUNT 3.27 10^6/uL (4.70-6.10); RED CELL DISTRIBUTION WIDTH 17.2 % (12.0-15.0)
[2019-05-01 05:26] LABS: ABNORMAL LYMPHS % (MANUAL) 0 %; ALBUMIN 2.2 g/dL (3.2-5.5); BAND NEUTROPHILS % (MANUAL) 0 %; CALCIUM 7.8 mg/dL (8.5-10.3); CREATININE 0.7 mg/dL (0.6-1.2); PHOSPHORUS 3.3 mg/dL (2.5-4.6)
[2019-05-01] MEDS: ACETAMINOPHEN 650 MG SUPP PR PRN (05:48)
[2019-05-01 05:59] LABS: EOSINOPHILS # (MANUAL) 0.1 10^3/uL (0-0.7); LYMPHOCYTES # (MANUAL) 1.3 10^3/uL (1.5-3.5); LYMPHOCYTES % (MANUAL) 12 %; MONOCYTES # (MANUAL) 0.4 10^3/uL (0.0-1.0)
[2019-05-01 06:00] LABS: RBC MORPHOLOGY (MULTIPLE) 1+ ANISOCYTOSIS (NORMAL)
[2019-05-01 06:01] LABS: DIFFERENTIAL COMMENT MANUAL DIFFERENTIAL; PLATELET ESTIMATE, MANUAL NORMAL (130-450,000) (NORMAL); PLATELET MORPHOLOGY NORMAL APPEARANCE (NORMAL)
[2019-05-01 08:01] VITALS: BP 146/65
[2019-05-01] MEDS: ASPIRIN EC 81 MG TABLET PO SCH (08:26)
[2019-05-01] MEDS: SULFAMETH/TRIMETH DS 800/160 MG TABLET PO SCH (08:26)
[2019-05-01] MEDS: SACCHAROMYCES BOULARDII 250 MG CAPSULE PO SCH (08:26)
[2019-05-01] MEDS: FAMOTIDINE 20 MG TABLET PO SCH (08:26)
[2019-05-01] MEDS: guaiFENesin 600 MG TABLET PO SCH (08:26)
[2019-05-01] MEDS: METOPROLOL SUCCINATE 25 MG TABLET PO SCH (08:26)
[2019-05-01] MEDS: FERROUS SULFATE 300 MG/5 ML UDC PO SCH (08:26)
--- NOTE | 2019-05-01 08:38 | Discharge Plan ---
"Discharge Plan for SNF / MARK - Discharge Plan And Transition Orders Problem Reviewed?: Yes Disposition: 03 SNF DC/Xfer Condition: Stable Allergies and Adverse Reactions: Allergies Allergy/AdvReac Type Severity Reaction Status Date / Time Uekrlrg-Pzj-Zha Reductase AdvReac Dizziness Verified 04/21/19 08:51 Inhibitor Health Concerns: Rafiq admitted for rhabdomyolysis and dehydration. He was treated with IV fluids with improvement in his symptoms. He then began to complain of pain with swallowing. He was scheduled for an EGD but this was never completed as he was about to receive anesthesia, he went atrial fibrillation with rapid ventricular response. He was transferred to the intensive care unit and treated with diltiazem. Echocardiogram was obtained which revealed an ejection fraction of 45%. His heart rate improved with medical therapy but unfortunately 4-week repeat the EGD, he suffered a large right MCA stroke on the morning of April 25. He has significant left-sided deficits. He also now has difficulty swallowing. His anticoagulation was held and he was treated with aspirin and Lipitor. Speech therapy saw the patient and recommended either a PEG tube be placed or comfort feeds. Palliative care was consulted to discuss goals of care. The patient on admission was also found to have bony metastasis and elevated PSA. The concern was for prostate cancer with metastasis to the bone. Palliative care discussed with the patient and his family regarding his current medical condition including the stroke and likely diagnosis of prostate cancer. The patient and family decided not to pursue a PEG tube and to continue with rehab as tolerated. - SNF / FDC Transition Orders Admit to (Facility): [facility] Discharge Diagnosis: Acute right MCA stroke - Continues to have persistent left-sided upper and lower extremity weakness. CT of the head on September 23 revealed a large right-sided infarct. Concern is for an embolic stroke given his history of atrial fibrillation and the nature of the stroke. He is on aspirin and Lipitor. We will continue to hold anticoagulation until May 10. Given he had a stroke despite anticoagulation with Coumadin, he will need to be on Eliquis or Xarelto when anticoagulation is restarted. Family has decided against a PEG tube. We will continue with a pure diet as tolerated. Chronic systolic heart failure - His echocardiogram revealed ejection fraction of 45%. He continues to appear euvolemic at this time and therefore we will continue to hold diuresis and will not discharge him on a diuretic. We will continue his Toprol and lisinopril. Anemia - His iron deficiency anemia which is stable. Continue oral iron supplementation. Bony metastasis - This is a new findings admission given the concern for prostate cancer with metastases to the bone. Continue ral morphine 5 mg every 4 hours as needed. We will also start him on a fentanyl patch 12 mcg. Dysphagia due to recent cerebrovascular accident - Patient and family have decided against the PEG tube. We will continue with a pured diet as tolerated. He will continue with speech therapy. Urinary tract infection due to Klebsiella species - This is likely catheter associated UTI given his urine sample was clean prior to Tam placement. Given his scrotal edema, the Tam catheter has not been changed. He has had no fevers and no signs of worsening infection. We will continue oral Bactrim for 4 more days to complete a 10-day course of treatment. Elevated PSA - Suspect he likely has prostate cancer given elevated PSA and brain metastasis. Depending on his clinical improvement over next few weeks, family and patient may consider further outpatient work-up. Peripheral vascular disease - Continue with aspirin and statin for peripheral vascular disease. 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 Chronic atrial fibrillation - Remains in atrial fibrillation but is rate controlled on metoprolol. We will continue to hold anticoagulation until May 10 given his recent CVA. Medicare Certification Statement: I certify that [facility] detention care is medically necessary on a continuing basis for any of the conditions for which she/he is receiving care during hospitalization. Notify PCP of admission and forward orders to primary provider for signature. Other Notification Orders: Call PCP immediately if patient develops dyspnea, chest pain/tightness or edema. Additional Bowel Program Orders: If no BM after 2 days, nurse may give M.O.M. 30ml PO PRN and/or ducolax Supp 1 TN and/or ISABELLA 250mg P.O., and/or senna 1-2 tabs PO. On day 3 nurse may give repeat above order until residents constipation is resolved. Medication Orders: PLEASE REFER TO THE DISCHARGE MEDICATION LIST. - Medications New Prescriptions: Acetaminophen [Tylenol Extra Strength] 1,000 mg PO BID #60 tablet Aspirin [Aspirin EC] 81 mg PO DAILY #30 tablet. Atorvastatin [Lipitor] 80 mg PO QPM #30 tablet fentaNYL 12 MCG PATCH [Duragesic 12mcg patch] 1 patch TOP Q3D #5 patch Ferrous Sulfate 325 mg PO DAILY #30 tablet lisinopriL [Zestril] 2.5 mg PO 1200 #30 tablet Metoprolol Succinate [Toprol Xl] 25 mg PO BID #60 tablet Morphine Sulfate [Morphine Sulf Oral (Roxanol)] 5 mg PO Q4H PRN #30 ml PRN Reason: Pain Sulfamethox/Trimeth 800/160 [Bactrim Ds] 1 tab PO 0900,2200 4 Days #8 tablet - Diet Texture: Puree Liquids: [place] thick - Therapies | Activity Therapy: Evaluation | Treat if indicated: PT, OT, Swallowing / ST Activity: Activity as Tolerated"
--- NOTE | 2019-05-01 10:08 | DISCHARGE SUMMARY ---
"Discharge Summary Admit Date: 04/21/19 Discharge Date: 05/01/19 Discharging Provider: Dillon Sandhu Primary Care Provider: Palmira Vale Code Status: Do Not Attempt Resuscitation Condition at Discharge: Stable Discharge Disposition: SNF DC/Xfer Discharge Facility Name: [facility] - DIAGNOSES Admission Diagnoses: Rhabdomyolysis Dehydration Generalized muscle weakness Hyponatremia Elevated liver function test Supratherapeutic INR Atrial fibrillation with rapid ventricular response Bone metastasis Discharge Diagnoses with Status of Each Condition: Acute right MCA stroke - Continues to have persistent left-sided upper and lower extremity weakness. CT of the head on September 23 revealed a large right-sided infarct. Concern is for an embolic stroke given his history of atrial fibrilla tion and the nature of the stroke. He is on aspirin and Lipitor. We will continue to hold anticoagulation until May 10. Given he had a stroke despite anticoagulation with Coumadin, he will need to be on Eliquis or Xarelto when anticoagulation is restarted. Family has decided against a PEG tube. We will continue with a pure diet as tolerated. Chronic systolic heart failure - His echocardiogram revealed ejection fraction of 45%. He continues to appear euvolemic at this time and therefore we will continue to hold diuresis and will not discharge him on a diuretic. We will continue his Toprol and lisinopril. He is at risk for becoming hypovolemic given his dysphagia and poor oral intake. Anemia - His iron deficiency anemia which is stable. Continue oral iron supplementation. Bony metastasis - This is a new findings admission given the concern for pros mancilla cancer with metastases to the bone. Continue ral morphine 5 mg every 4 hours as needed. We will also start him on a fentanyl patch 12 mcg. Dysphagia due to recent cerebrovascular accident - Patient and family have decided against the PEG tube. We will continue with a pured diet as tolerated. He will continue with speech therapy. Urinary tract infection due to Klebsiella species - This is likely catheter associated UTI given his urine sample was clean prior to Tam placement. Given his scrotal edema, the Tam catheter has not been changed. He has had no fevers and no signs of worsening infection. We will continue oral Bactrim for 4 more days with last day being May 04 to complete a 10-day course of treatment. Elevated PSA - Suspect he likely has prostate cancer given elevated PSA and brain metastasis. Depending on his clinical improvement over next few weeks, family and patient may consider further outpatient work-up. Peripheral vascular disease - Continue with aspirin and statin for peripheral vascular disease. 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 Chronic atrial fibrillation - Remains in atrial fibrillation but is rate controlled on metoprolol. We will continue to hold anticoagulation until May 10 given his recent CVA. - HPI History of Present Illness: H&P per Dr. Bill on 04/21/18: He is a 73-year-old man who is with a history of coronary artery disease after a stent in 2003, and peripheral vascular disease resulting in osteomyelitis of the toes, and eventual amputation by December 2018. He also has a history of atrial fibrillation with strokes in the right internal capsule, bilateral thalami, and left precentral gyrus area. It is unclear if his strokes were due to A. fib that was not anticoagulated or ischemic. Most of them were in the left middle cerebral artery distribution dating to 2013. He regards himself is healthy and independent. In spite of his medical problems he would get in his truck and drive wherever he wanted to drive up until this fall. The leg pain in the foot pain from peripheral vascular disease was very uncomfortable. He eventually ended up with the amputation in December and taken care of by Dr. Walters and has not at [facility]. He feels like he remains relatively independent. He spent time in a wheelchair, but could transfer from the wheelchair to the bed. Wheelchair to a truck. Or go to his kitchen and stand to cook food. About 2 months ago he started having nausea. Unsure what it was from. Food started tasting bad. 2 weeks ago food really developed a bad taste. It did matter if he ate or drank something it jus t tasted bad. 3 days ago he developed severe esophageal pain. It would hurt in his solar plexus as water or liquid would drop from his esophagus into his stomach. Over the course of this time he felt like he was getting weaker and weaker. A week ago he tried to stand and do dishes and almost did not make it back to his wheelchair. He denies fever, chills. Denies cough, wheezing. No urgency, frequency, or dysuria. There is no hematuria. No flank pain. He had no new neurologic symptoms. Overall just weakness, fatigue, bad appetite. This last Sunday and Sunday he was having a particularly bad time. As you tried to transfer from bed to the wheelchair he did not make it a few times. He would gently slide himself down to the floor and lay there for hours at a time until he got the energy to get up and get back in bed or get back in the wheelchair. He finally came in today because he could not get up anymore. He was evaluated by Dr. Jackson. Weight in September 2018 was 72.5 kg. Weight today is 69.5 kg. Temperature was 37 1, heart rate was 120, respirations were 18 and blood pressure 158/76. 93% saturated on room air. He was felt to be a well- developed well-nourished elderly gentleman with dry lips and tongue. No meningeal signs. An irregularly irregular heartbeat that was tachycardic. Negative lung exam. The right lower extremity amputation. His labs showed him to be mildly anemic at 11.5 g of hemoglobin. Platelets were low at 125. INR is 4.3. He takes Coumadin for A. fib. He is newly hyponatremic at 121. BUN is 32 and creatinine is 0.8. Total bili is 2, AST is 68. Alk phos is 526. He is now admitted for dehydration manifested is dry oral mucosa, tachycardia, electrolyte imbalance. He has a prolonged INR. What is also notable is a CT of the abdomen done due to the elevated liver functions test. He has extensive coronary artery calcification. The liver is without masses. Extensive heterogeneous sclerotic changes seen throughout the bones suggesting widespread metastatic disease. This is new from a October 31, 2013 film. Minimal to mild denisse ateral pleural effusion. - CONSULTS | PROCEDURES Consultations: Palliative Care, OT, PT, ST. Procedures: CT of the head. Echocardiogram. - HOSPITAL COURSE Hospital Course: He was initially admitted for rhabdomyolysis and dehydration. He was found have a sodium of 121. He was treated with IV saline with improvement in the rhabdomyolysis and the hyponatremia. He was also found to have bony metastasis and his PSA was found to be elevated. The concern was for prostate cancer that had metastasized. There was discussion between interventional radiology neurology and general surgery about how best to proceed with a biopsy. This was ultimately never completed. The patient was complaining of pain with dysphagia while hospitalized. We attempted to obtain an esophagram but he was unable to stand and cooperate with positioning due to his above-knee amputation. General surgery was then consulted for an endoscopy and while the patient was being in exercise, he went atrial fibrillation with heart rates in the 190s. The procedure was aborted and he was transferred to the intensive care unit. He was started on Cardizem IV. An echocardiogram was obtained which showed an ejection fraction of 45%. It was felt that he was dehydrated and he was continued on IV fluids. Fortunately, the following day on April 25 he was found to have significant left-sided weakness and he was unable to move his left upper or lower extremities. A stat CT of the head was obtained which showed an acute stroke in the right MCA and COMPLIANCE TESTER distribution. The concern was this was embolic in nature. His INR was actually 3.2 the day of the stroke. He was given aspirin and 40 is not a candidate for alteplase given he was anticoagulated. Her following day he desaturated and became hypoxic requiring oxygen. An x-ray was concerning for pulmonary edema and his IV fluids were discontinued and he is started on IV diuresis. The diuretics were continued for day but then discontinued as his blood pressure dropped into the 90s to 100s. He also spiked a fever the day of his stroke. He was pancultured and his urine was suggestive of infection. He had a Tam catheter in place already. He was started on IV ceftriaxone. Cultures grew Klebsiella and he was transitioned to Bactrim. PT and OT evaluate the patient given his left-sided deficits. Speech therapy also evaluated the patient as he had significant difficulty swallowing. His speech therapy recommended a PEG to be placed or comfort feeds. This was discussed with the patient and his family and they decided against pursuing a PEG tube. Palliative care was also consulted to help clarify goals of care. The patient and family ultimately decided to continue with rehab as tolerated and they were agreeable to a prison facility. Depending on how he does, they will consider hospice if there is no improvement. The time being, the prostate cancer will not be worked up. If he improves from a functional standpoint, the patient can follow-up with oncology on an outpatient basis. The patient will continue oral Bactrim for 4 more days with the last day of treatment being May 04. He will have completed 10 days of treatment for a catheter associated urinary tract infection. The Tam catheter was never exchanged despite the infection as he has scrotal edema and there was concern that there may be difficulty replacing a Tam catheter. He shows no clinical signs of worsening infection. He has also been off of his Coumadin given the large right MCA stroke. He will need to continue aspirin and Lipitor. He should be anticoagulated again in the future given his atrial fibrillation and stroke. Given he had a stroke while on Coumadin, he should be on Xarelto or Eliquis in the future. This should not be started until May 10 given the recent infarct. - ALLERGIES Allergies/Adverse Reactions: Allergies Allergy/AdvReac Type Severity Reaction Status Date / Time Cbeeegu-Tnt-Tsm Reductase AdvReac Dizziness Verified 04/21/19 08:51 Inhibitor - MEDICATIONS Home Medications: Ambulatory Orders Medication Instructions Recorded Confirmed Acetaminophen [Tylenol Extra 1,000 mg PO BID #60 tablet 05/01/19 Strength] Aspirin [Aspirin EC] 81 mg PO DAILY #30 tablet. 05/01/19 Atorvastatin [Lipitor] 80 mg PO QPM #30 tablet 05/01/19 Ferrous Sulfate 325 mg PO DAILY #30 tablet 05/01/19 Metoprolol Succinate [Toprol Xl] 25 mg PO BID #60 tablet 05/01/19 Morphine Sulfate [Morphine Sulf 5 mg PO Q4H PRN #30 ml 05/01/19 Oral (Roxanol)] Sulfamethox/Trimeth 800/160 1 tab PO 0900,2200 4 Days #8 tablet 05/01/19 [Bactrim Ds] fentaNYL 12 MCG PATCH [Duragesic 1 patch TOP Q3D #5 patch 05/01/19 12mcg patch] lisinopriL [Zestril] 2.5 mg PO 1200 #30 tablet 05/01/19 - PHYSICAL EXAM AT DISCHARGE General Appearance: positive: No acute distress, Alert Eyes Bilateral: positive: Normal inspection, Conjunctivae nml ENT: positive: ENT inspection nml Neck: positive: Nml inspection Respiratory: positive: No respiratory distress. negative: Wheezes, Rales, Rhonchi Cardiovascular: positive: No murmur, Irregularly irregular. negative: Tachycardia, Bradycardia, Systolic murmur, Diastolic murmur Abdomen: positive: Non-tender, No distention. negative: Tenderness Skin: positive: Warm, Dry Extremities: positive: No pedal edema, Other (He has a right above-knee amputation. The site appears clean dry and intact.) Neurologic/Psychiatric: positive: Facial droop (Left-sided), Other (He has 0 out of 5 motor strength in his left upper extremity. He has about 1 out of 5 motor strength in the left lower extremity. Most of his strength is distally and he is able to move his toes. He does have left-sided neglect.). negative: Motor nml, Sensation nml, Disoriented to person, Disoriented to place, Disoriented to time - LABS Result Diagrams: 05/01/19 04:45 05/01/19 04:45 - DIAGNOSTIC IMAGING Diagnostic Imaging Results: Final report reviewed - FOLLOW UP Follow Up: Patient will need to follow-up with palliative care. - TIME SPENT Time Spent in Discharge (Minutes): 40"
[2019-05-01] MEDS: lisinopriL 5 MG TABLET PO SCH (11:54)
== END 2019-05-01 12:17 | DRG 557 ==
LOC: EDUNIT# → ED 08:45 → MS2 12:00 → ICU 04-24 13:13 → MS2 04-30 16:15
PROVIDERS: ADMIT Specialist; ATTEND Internal Medicine
DX: M62.82 Rhabdomyolysis (principal); E87.8 Other disorders of electrolyte and fluid balance, not elsewhere classified; R93.7 Abnormal findings on diagnostic imaging of other parts of musculoskeletal system; R74.8 Abnormal levels of other serum enzymes; I10 Essential (primary) hypertension; I63.411 Cerebral infarction due to embolism of right middle cerebral artery; T83.511A Infection and inflammatory reaction due to indwelling urethral catheter, initial encounter; I48.91 Unspecified atrial fibrillation; Z99.3 Dependence on wheelchair; N39.0 Urinary tract infection, site not specified; E43 Unspecified severe protein-calorie malnutrition; I63.431 Cerebral infarction due to embolism of right posterior cerebral artery; I50.23 Acute on chronic systolic (congestive) heart failure; C79.51 Secondary malignant neoplasm of bone; E87.1 Hypo-osmolality and hyponatremia; I48.20 Chronic atrial fibrillation, unspecified; N28.0 Ischemia and infarction of kidney; G81.04 Flaccid hemiplegia affecting left nondominant side; I11.0 Hypertensive heart disease with heart failure; E86.0 Dehydration; N50.89 Other specified disorders of the male genital organs; R13.10 Dysphagia, unspecified; D50.9 Iron deficiency anemia, unspecified; C61 Malignant neoplasm of prostate; B96.89 Other specified bacterial agents as the cause of diseases classified elsewhere; R09.02 Hypoxemia; R29.810 Facial weakness; E78.00 Pure hypercholesterolemia, unspecified; I73.9 Peripheral vascular disease, unspecified; I25.10 Atherosclerotic heart disease of native coronary artery without angina pectoris; M25.552 Pain in left hip; M79.605 Pain in left leg; M25.551 Pain in right hip; I95.9 Hypotension, unspecified; G89.3 Neoplasm related pain (acute) (chronic); R62.7 Adult failure to thrive; R33.9 Retention of urine, unspecified; R47.9 Unspecified speech disturbances; E87.6 Hypokalemia; T50.1X5A Adverse effect of loop [high-ceiling] diuretics, initial encounter; Y92.230 Patient room in hospital as the place of occurrence of the external cause; K08.109 Complete loss of teeth, unspecified cause, unspecified class; I34.0 Nonrheumatic mitral (valve) insufficiency; I25.2 Old myocardial infarction; Z51.5 Encounter for palliative care; Z66 Do not resuscitate; Z79.01 Long term (current) use of anticoagulants; Z79.899 Other long term (current) drug therapy; Z87.39 Personal history of other diseases of the musculoskeletal system and connective tissue; Z95.5 Presence of coronary angioplasty implant and graft; Z86.010 Personal history of colon polyps; Z87.891 Personal history of nicotine dependence; Z68.23 Body mass index [BMI] 23.0-23.9, adult; Z91.81 History of falling; Z74.01 Bed confinement status; Z89.611 Acquired absence of right leg above knee
CPT/HCPCS: 36415; 36600; 70450; 71045; 73502; 74177; 80048; 80053; 80074; 80076; 80162; 80202; 81001; 82040; 82550; 82607; 82746; 82803; 83540; 83605; 83690; 83735; 84100; 84153; 84154; 84155; 84165; 84466; 84484; 85025; 85610; 87040; 87077; 87086; 87150; 87181; 87275; 87276; 92526; 92610; 92611; 93005; 93306; 93880; 96360; 96361; 97140; 97162; 97164; 97165; 97166; 97530; 99223; 99233; 99285; A6250; A9270; J0131; J1170; J3370; Q9967; 74230; 81003; 82330

== ENCOUNTER 2019-05-01 12:20 | Outpatient (CLI) | payer MEDICARE, OTHER | END 2019-05-01 12:21 | LOC: EMS 12:20 | PROVIDERS: ATTEND Surgery | DX: I69.954 Hemiplegia and hemiparesis following unspecified cerebrovascular disease affecting left non-dominant side (principal); R52 Pain, unspecified; I50.22 Chronic systolic (congestive) heart failure; Z89.611 Acquired absence of right leg above knee | CPT/HCPCS: A0425; A0428 ==

== ENCOUNTER 2019-05-15 15:24 | Outpatient (CLI) | payer MEDICARE, OTHER | END 2019-05-15 15:25 | disposition critical access hospital (66) | LOC: EMS 15:24 | PROVIDERS: ATTEND Surgery | DX: M79.89 Other specified soft tissue disorders (principal); I69.354 Hemiplegia and hemiparesis following cerebral infarction affecting left non-dominant side; I82.622 Acute embolism and thrombosis of deep veins of left upper extremity | CPT/HCPCS: A0425; A0428; A0429 ==

== ENCOUNTER 2019-05-15 17:35 | Outpatient (CLI) | payer MEDICARE, OTHER | END 2019-05-15 17:36 | LOC: EMS 17:35 | PROVIDERS: ATTEND Surgery | DX: I69.359 Hemiplegia and hemiparesis following cerebral infarction affecting unspecified side (principal); I82.622 Acute embolism and thrombosis of deep veins of left upper extremity ==